=== PATIENT | male | born 1985 | race Caucasian/White ===

== ENCOUNTER 2020-12-19 16:39 | Emergency (ER) | payer OTHER, SELFPAY ==
--- NOTE | ~2020-12-19 | XR_ITS ---
XR ankle RT min 3V 12/19/2020 16:57 Indication: Inversion injury with right ankle pain Procedure: 4 views right ankle Comparison: No prior studies for comparison. Findings: There is a corticated ossific density inferior to the fibula, likely an accessory ossicle. There are corticated ossific densities inferior to the calcaneus anteriorly, also likely accessory os sicles. No acute fracture is identified. Ankle mortise intact. No significant soft tissue abnormality . No foreign bodies. Impression: 1: No acute fracture. Reviewed, dictated and finalized at location A. Impression: 1: No acute fracture.
[2020-12-19 16:45] VITALS: BP 179/117; PULSE 101; RESP 20; TEMP 36.6; O2SAT 98
--- NOTE | 2020-12-19 16:52 | ED.LOWEXIN ---
HPI - Extremity Injury (Lower) General Chief Complaint: Extremity Problem,Nontraumatic Stated Complaint: left ankle pain Time Seen by Provider: 12/19/20 16:52 Source: patient, family and RN notes reviewed Mode of arrival: ambulatory Limitations: no limitations History of Present Illness HPI Narrative: 35-year-old male presents to the [facility] with complaints of right ankle pain for the last 3 to 4 days. Patient states he does not want care when he stepped in hole and rolled his ankle. No bruising or swelling noted. Tenderness to lateral malleolus. Walks favoring the right leg. Slight limp noted Has a history of hypertension. Is supposed to be on losartan and amlodipine however has not taken in a few days. Related Data Home Medications Medication Instructions Recorded Confirmed clonazepam 0.5 mg PO DIRECTED 12/19/20 12/19/20 losartan 100 mg PO DAILY 12/19/20 12/19/20 testosterone cypionate 200 mg IM DIRECTED 12/19/20 12/19/20 Allergies Allergy/AdvReac Type Severity Reaction Status Date / Time No Known Allergies Allergy Unverified 02/27/19 12:45 Review of Systems Review of Systems: Narrative: CONSTITUTIONAL: Denies fever, chills, or sweats. CARDIOVASCULAR: Denies chest pain, palpitations, or edema. RESPIRATORY: Denies cough or dyspnea. SKIN: Denies rash or itching. MUSCULOSKELETAL: Denies back pain or myalgia. Reports right ankle pain for 4 days NEUROLOGIC: Denies headache, numbness, or weakness. PSYCHIATRIC: Denies anxiety or depression. All other systems reviewed are negative, except as documented in HPI. PMFSH Past Medical History Medical History (Updated 12/21/20 @ 11:46 by Ani Ruiz) Hypertension Low testosterone in male Family History Family History Father Hypertension Mother Hypertension Carcinoma of colon Social History Social History Smoking status: Smoker, status unknown Gender identity (if verbalized by the patient): Male Comments At the time of my signature, I reviewed and agree with the nursing past medical, surgical, social, and family history. There is no relevant family history pertinent to the patient complaint. Exam Narrative: Exam Narrative: GENERAL: This is a well-nourished, well-developed patient, in no apparent distress. Obese HEAD: normocephalic, atraumatic. EYES: PERRL. Sclera clear/white. Vision is grossly intact. EARS: External ears normal CARDIOVASCULAR: Regular rate and rhythm without murmurs, gallops, or rubs. RESPIRATORY: Clear to auscultation. Breath sounds equal bilaterally. No wheezes, rales, or rhonchi. SKIN: warm, Dry, intact with no suspicious lesions or rash, good texture and turgor. NEURO: awake, alert, and oriented to person, place and time. There were no obvious focal neurologic abnormalities. EXTREMITIES: Right ankle joint tenderness no effusion, bruising, swelling or edema noted. No calf tenderness. Negative Homans sign bilaterally. BACK: Nontender without deformity. Patient denies any headaches, blurry vision or change in vision. Denies any chest pain or shortness of breath. Extrem: Ankle/foot/toe images: 1. Course Vital Signs Vital signs: Vital Signs Temperature 98 F 12/19/20 16:45 Pulse Rate 101 H 12/19/20 16:45 Respiratory Rate 20 12/19/20 16:45 Blood Pressure 179/117 H 12/19/20 16:45 Pulse Oximetry 98 12/19/20 16:45 Temperature 98 F 12/19/20 16:45 Pulse Rate 101 H 12/19/20 16:45 Respiratory Rate 20 12/19/20 16:45 Blood Pressure 179/117 H 12/19/20 16:45 Pulse Oximetry 98 12/19/20 16:45 Reviewed. Discussed in great detail with patient the importance of blood pressure control. Patient reports having an appointment in early January with his primary care provider for evaluation. Patient also states he does not take his medications on a daily basis. Discussed the dangers of uncontrolled hype
--- NOTE | 2020-12-19 17:17 | PC.NURSE ---
PT DECLINED ICE FOR COMFORT AND WHEELCHAIR TO RADIOLOGY
== END 2020-12-19 17:19 | disposition home or self-care (01) ==
PROVIDERS: Emergency Provider Nurse Practitioner; PCP Family Medicine
DX: S93.401A Sprain of unspecified ligament of right ankle, initial encounter (principal); W17.2XXA Fall into hole, initial encounter; I10 Essential (primary) hypertension
CPT/HCPCS: 73610; 99213; G0463

== ENCOUNTER 2021-03-04 17:41 | Emergency (ER) | payer OTHER, SELFPAY ==
--- NOTE | ~2021-03-04 | XR_ITS ---
[XR ribs RT 2V ] INDICATION: Right rib pain for 2 months TECHNIQUE: Frontal projection of the upper right ribs, frontal projection of the lower right ribs, ob lique projection of all the right ribs, frontal inspiratory chest x-ray for interpretation. COMPARISON: 05/04/2019 and 05/10/2018 FINDINGS: There is a healed right seventh and eighth rib fractures with callus formation no acute dis placed rib fractures identified. No pleural effusion or pneumothorax. No acute osseous abnormality.. There are no soft tissue abnormality seen. The lungs are clear. IMPRESSION: 1:No acute displaced rib fractures. 2:Chronic healed right seventh and eighth rib fractures. Reviewed, dictated and finalized at location A.
[2021-03-04 17:46] VITALS: BP 158/91; PULSE 94; RESP 16; TEMP 36.4; O2SAT 96
--- NOTE | 2021-03-04 17:46 | ED.GENADULT ---
HPI - General Adult General Chief complaint: Back Pain/Injury Stated complaint: poss broken ribs Time Seen by Provider: 03/04/21 17:46 Source: patient and RN notes reviewed History of Present Illness HPI narrative: Patient is a 35-year-old male who presents the urgent care with complaints of right rib pain. Patient states he has had some rib pain for approximately 2 months but sneezed hard last night and believes he popped a rib or fractured a rib on the right side . Patient denies of any known trauma or injury. States that pain exacerbates with movement or lifting of the right arm. Denies of any recent falls. Patient denies of any use of [id number] medication for pain. No other acute complaints. No acute distress noted. Patient aware of the plan of care. Some parts of this dictation were generated by voice recognition software and may contain typographical and/or grammatical inaccuracies. Related Data Home Medications Medication Instructions Recorded Confirmed clonazepam 0.5 mg PO DIRECTED 12/19/20 12/19/20 losartan 100 mg PO DAILY 12/19/20 12/19/20 testosterone cypionate 200 mg IM DIRECTED 12/19/20 12/19/20 labetalol 200 mg PO DAILY 03/04/21 03/04/21 omeprazole 20 mg PO DAILY 03/04/21 03/04/21 Allergies Allergy/AdvReac Type Severity Reaction Status Date / Time No Known Allergies Allergy Verified 03/04/21 17:54 Review of Systems Review of Systems: Narrative: CONSTITUTIONAL: Denies fever, chills, or sweats. EYES: Denies visual changes, redness, or discharge. ENT: Denies rhinorrhea, congestion, sore throat, or otalgia. CARDIOVASCULAR: Denies chest pain, palpitations, or edema. RESPIRATORY: Denies cough or dyspnea. GASTROINTESTINAL: Denies abdominal pain, nausea, vomiting, or diarrhea. GENITOURINARY: Denies dysuria or hematuria. SKIN: Denies rash or itching. MUSCULOSKELETAL: Recent right posterior/right upper back pain NEUROLOGIC: Denies headache, numbness, or weakness. All other systems reviewed are negative, except as documented in HPI. [facility] Past Medical History Medical History (Updated 03/04/21 @ 18:24 by ANN Foster) Hypertension Low testosterone in male Family History Family History Father Hypertension Mother Hypertension Carcinoma of colon Social History Social History Smoking status: Smoker, status unknown Gender identity (if verbalized by the patient): Male Comments At the time of my signature, I reviewed and agree with the nursing past medical, surgical, social, and family history. There is no relevant family history pertinent to the patient complaint. Exam Narrative: Exam Narrative: GENERAL: This is a well-nourished, well-developed patient, in no apparent distress. HEAD: normocephalic, atraumatic. EYES: PERRL. Sclera clear/white. Vision is grossly intact. EARS: External ears normal NOSE: External nose normal with no obvious nasal discharge, nares without redness, no rhinorrhea. THROAT: Mucous membranes moist NECK: Neck supple CARDIOVASCULAR: Regular rate and rhythm without murmurs, gallops, or rubs. RESPIRATORY: Clear to auscultation. Breath sounds equal bilaterally. No wheezes, rales, or rhonchi. SKIN: warm, intact with no suspicious lesions or rash, good texture and turgor. NEURO: awake, alert, and oriented to person, place and time. There were no obvious focal neurologic abnormalities. EXTREMITIES: No clubbing, cyanosis, or edema. BACK: Mild to moderate lateral posterior right upper rib tenderness Course Vital Signs Vital signs: Vital Signs Temperature 97.5 F L 03/04/21 17:46 Pulse Rate 94 03/04/21 17:46 Respiratory Rate 16 03/04/21 17:46 Blood Pressure 158/91 H 03/04/21 17:46 Pulse Oximetry 96 03/04/21 17:46 Temperature 97.5 F L 03/04/21 17:57 Pulse Rate 94 03/04/21 17:57 Respiratory Rate 16 03/04/21 17:57 Blood Pressu
[2021-03-04 17:57] VITALS: BP 158/91; PULSE 94; RESP 16; TEMP 36.4; O2SAT 96
== END 2021-03-04 18:28 | disposition home or self-care (01) ==
PROVIDERS: Emergency Provider Nurse Practitioner Family; PCP Family Medicine
DX: R07.81 Pleurodynia (principal); I10 Essential (primary) hypertension
CPT/HCPCS: 71100; 99213; G0463

== ENCOUNTER 2021-05-18 16:50 | Emergency (ER) | payer OTHER, SELFPAY ==
[2021-05-18 16:55] VITALS: BP 152/93; PULSE 85; RESP 16; TEMP 36.7; O2SAT 95
[2021-05-18 17:06] VITALS: BP 152/93; PULSE 85; RESP 16; TEMP 36.7; O2SAT 95
--- NOTE | 2021-05-18 17:45 | ED.EYEPROB ---
HPI - Eye Problem General Chief complaint: Eye Problems Stated complaint: right eye Time Seen by Provider: 05/18/21 17:34 Source: patient and RN notes reviewed Mode of arrival: ambulatory Limitations: no limitations History of Present Illness HPI Narrative: Patient presents today complaining of swelling to the right external eye since 1030 today. Reports feels irritated , but denies pain. Denies vision changes, foreign body sensation, redness, drainage, watering. He has tried no [id number]-[id number] interventions prior to arrival. MD chief complaint: other (Eyelid swelling) Related Data Home Medications Medication Instructions Recorded Confirmed clonazepam 0.5 mg PO TID PRN 12/19/20 05/18/21 losartan 100 mg PO DAILY 12/19/20 05/18/21 testosterone cypionate 200 mg IM WEEKLY 12/19/20 05/18/21 labetalol 200 mg PO DAILY 03/04/21 05/18/21 atorvastatin 20 mg PO DAILY 05/18/21 05/18/21 Allergies Allergy/AdvReac Type Severity Reaction Status Date / Time No Known Allergies Allergy Verified 05/18/21 17:03 Review of Systems Review of Systems: CONSTITUTIONAL: Denies body aches, fever, chills, or sweats. EYES: Denies visual changes, redness, or discharge. + Right eyelid swelling ENT: Denies rhinorrhea, congestion, sore throat, or otalgia. CARDIOVASCULAR: Denies chest pain, palpitations, or edema. RESPIRATORY: Denies cough or dyspnea. GASTROINTESTINAL: Denies abdominal pain, nausea, vomiting, or diarrhea. GENITOURINARY: Denies dysuria or hematuria. SKIN: Denies rash, itching, or wounds. MUSCULOSKELETAL: Denies back pain, joint pain, or myalgia. NEUROLOGIC: Denies headache, numbness, tingling, or weakness. PSYCH: Denies depression or anxiety. [facility] Past Medical History Medical History Hypertension Low testosterone in male Family History Family History Father Hypertension Mother Hypertension Carcinoma of colon Social History Social History Smoking status: Smoker, status unknown Gender identity (if verbalized by the patient): Male Comments At time of signature, I have reviewed and agree with nursing past medical, surgical, social and family history unless otherwise noted. Please see nursing chart for further information. There is no relevant family history pertinent to the presenting complaint Exam Narrative: GENERAL: Well-appearing, well-nourished, and in no acute distress. HEAD: Normocephalic, atraumatic. EYES: EOMI. PERRL. No redness or drainage. Conjunctivae normal. Mild to moderate swelling of the right upper eyelid. Lashes normal. No stye noted internally or externally. Eyelids are nontender to palpation. No induration noted. No erythema noted. No drainage or watering noted. ENT: Mucous membranes pink and moist. NECK: Normal AROM. CHEST: No respiratory distress. EXTREMITIES: Normal range of motion. No edema. SKIN: Warm, dry, no rash. Capillary refill normal. Normal skin turgor. NEURO: No focal deficits. Alert and oriented x3. Gait steady. PSYCH: Normal affect. No signs of depression or anxiety. Course Course Emergency Course: will treat patient steroids like an allergic reaction/insect bite. He will take some Benadryl when he gets home. There is no evidence of bacterial infection or foreign body at this time. Patient has no pain or drainage. Anticipatory guidance given for follow-up. Vital Signs Vital signs: Vital Signs Temperature 98.0 F 05/18/21 16:55 Pulse Rate 85 05/18/21 16:55 Respiratory Rate 16 05/18/21 16:55 Blood Pressure 152/93 H 05/18/21 16:55 Pulse Oximetry 95 05/18/21 16:55 Temperature 98.0 F 05/18/21 17:06 Pulse Rate 85 05/18/21 17:06 Respiratory Rate 16 05/18/21 17:06 Blood Pressure 152/93 H 05/18/21 17:06 Pulse Oximetry 95 05/18/21 17:06 Reviewed.
[2021-05-18] MEDS: predniSONE 10 MG TABLET 50 MG PO (17:48)
== END 2021-05-18 17:57 | disposition home or self-care (01) ==
PROVIDERS: Emergency Provider Nurse Practitioner; PCP Family Medicine
DX: R22.0 Localized swelling, mass and lump, head (principal); I10 Essential (primary) hypertension
CPT/HCPCS: 99213; G0463; J7512

== ENCOUNTER 2021-07-04 16:28 | Emergency (ER) | payer OTHER, SELFPAY ==
--- NOTE | ~2021-07-04 | XR_ITS ---
XR ankle LT min 3V DATE: 07/04/2021 16:50 INDICATION: Inversion injury. Lateral pain and swelling. TECHNIQUE: 4 views COMPARISON: None FINDINGS: There is prominent lateral soft tissue swelling. No fracture or dislocation of the ankle or disruption of the ankle mortise is detected. No periosteal reaction or bone destruction. IMPRESSION: Prominent lateral soft tissue swelling; no fracture or dislocation Reviewed, dictated and finalized at location A.
[2021-07-04 16:45] VITALS: BP 149/93; PULSE 96; RESP 16; TEMP 36.6; O2SAT 98
--- NOTE | 2021-07-04 17:18 | ED.LOWEXIN ---
HPI - Extremity Injury (Lower) General Chief Complaint: Extremity Injury, Lower Stated Complaint: Left Ankle Injury Time Seen by Provider: 07/04/21 17:18 Source: patient Mode of arrival: ambulatory History of Present Illness HPI Narrative: patient presents with pain and swelling to the lateral side of the ankle. patient states he rolled his ankle yesterday and it immediately became swollen no deformity no bruising noted. MD complaint: ankle injury Related Data Home Medications Medication Instructions Recorded Confirmed clonazepam 0.5 mg PO TID PRN 12/19/20 07/04/21 losartan 100 mg PO DAILY 12/19/20 07/04/21 labetalol 200 mg PO DAILY 03/04/21 07/04/21 atorvastatin 20 mg PO DAILY 05/18/21 07/04/21 Allergies Allergy/AdvReac Type Severity Reaction Status Date / Time No Known Allergies Allergy Verified 07/04/21 17:06 Review of Systems Review of Systems: CONSTITUTIONAL: Denies fever, chills, or sweats. EYES: Denies visual changes, redness, or discharge. ENT: Denies rhinorrhea, congestion, sore throat, or otalgia. CARDIOVASCULAR: Denies chest pain, palpitations, or edema. RESPIRATORY: Denies cough or dyspnea. GASTROINTESTINAL: Denies abdominal pain, nausea, vomiting, or diarrhea. GENITOURINARY: Denies dysuria or hematuria. SKIN: Denies rash or itching. MUSCULOSKELETAL: Denies back pain, joint pain, or myalgia. NEUROLOGIC: Denies headache, numbness, or weakness. PSYCHIATRIC: Denies anxiety or depression. PMFSH Past Medical History Medical History Hypertension Low testosterone in male Family History Family History Father Hypertension Mother Hypertension Carcinoma of colon Social History Social History Smoking status: Smoker, status unknown Gender identity (if verbalized by the patient): Male Comments At time of signature, agree with nursing past medical, surgical, social and family history. There is no relevant family history pertinent to the presenting complaint Exam Narrative: GENERAL: Well-appearing, well-nourished, and in no acute distress. HEAD: Normocephalic, atraumatic. EYES: PERRLA and EOMI. ENT: Nares clear, no rhinorrhea or epistaxis. Mucous membranes moist. NECK: Supple. CHEST: Clear to auscultation. No respiratory distress. HEART: Regular rate and rhythm. No murmur heard. Normal peripheral pulses. ABDOMEN: Soft, nontender, nondistended, normal active bowel sounds. EXTREMITIES: Normal range of motion. No edema. ANKLE EXAM SKIN INTACT. NORMAL DP PULSE, NORMAL CAP REFILL. NORMAL SENSATION. SKIN: Warm, dry, no rash. NEURO: No focal deficits. Alert and oriented x3. [place] Coma Scale Eye Opening: Spontaneous 4 Stephanie Coma Scale Motor: Obeys Commands 6 [place] Coma Scale Verbal: Oriented 5 [place] Coma Scale Total 15 Course Vital Signs Vital signs: Vital Signs Temperature 36.6 C 07/04/21 16:45 Pulse Rate 96 07/04/21 16:45 Respiratory Rate 16 07/04/21 16:45 Blood Pressure 149/93 H 07/04/21 16:45 Pulse Oximetry 98 07/04/21 16:45 Temperature 36.6 C 07/04/21 16:45 Pulse Rate 96 07/04/21 16:45 Respiratory Rate 16 07/04/21 16:45 Blood Pressure 149/93 H 07/04/21 16:45 Pulse Oximetry 98 07/04/21 16:45 Addressed elevated BP today. Today's blood pressure higher than recommended range. Discussed importance of follow -up with PCP and possible chcf effects/cardiovascular events related to HTN. Currently patient denies headache, dizziness, vision changes, CP or shortness of breath. DISCUSSED WITH PATIENT, X-RAY FINDINGS AND THAT X-RAYS WERE NEGATIVE FOR FRACTURE OR DISLOCATIONS. X-RAYS CANNOT RULE OUT TENDON, LIGAMENT, OR SOFT TISSUE STRUCTURE INJURIES AND IF SYMPTOMS PERSIST OR WORSEN, FURTHER EVALUATION MAY BE WARRANTED FOR POTENTIAL IMAGING. ADVISED REST, ICE, COMPRESSION
== END 2021-07-04 17:30 | disposition home or self-care (01) ==
PROVIDERS: Emergency Provider Nurse Practitioner Family; PCP Family Medicine
DX: S93.402A Sprain of unspecified ligament of left ankle, initial encounter (principal); S96.912A Strain of unspecified muscle and tendon at ankle and foot level, left foot, initial encounter; X50.9XXA Other and unspecified overexertion or strenuous movements or postures, initial encounter; I10 Essential (primary) hypertension
CPT/HCPCS: 73610; 99213; G0463

== ENCOUNTER 2022-10-26 09:19 | Emergency (ER) | payer OTHER, SELFPAY ==
[2022-10-26 09:23] VITALS: BP 180/113; PULSE 110; RESP 16; TEMP 36.6; O2SAT 95
--- NOTE | 2022-10-26 09:54 | ED.DENTAL ---
HPI - Dental/Oral General Chief complaint: Dental/Oral Stated complaint: Toothache Source: patient and RN notes reviewed History of Present Illness HPI Narrative: 37-year-old male presents to urgent care with complaints of left upper dental pain and swelling. Patient states he has always had pain there but the last couple days it has gotten worse. Patient presents intoxicated and states he has been doing his pain with liquor. Patient did state he got a ride with his stepdad was out in the waiting room. Patient denies any vomiting difficulty swallowing, shortness of breath, or chest pain. Patient denies taking any ibuprofen or Tylenol. Some parts of this dictation were generated by voice recognition software and may contain typographical and/or grammatical inaccuracies. Related Data Home Medications Medication Instructions Recorded Confirmed clonazepam 0.5 mg tablet 0.5 mg PO TID PRN Anxiety 12/19/20 07/04/21 losartan 100 mg tablet 100 mg PO DAILY 12/19/20 07/04/21 labetalol 200 mg tablet 200 mg PO DAILY 03/04/21 07/04/21 atorvastatin 20 mg tablet 20 mg PO DAILY 05/18/21 07/04/21 Allergies Allergy/AdvReac Type Severity Reaction Status Date / Time No Known Allergies Allergy Verified 07/04/21 17:06 Review of Systems Review of Systems: CONSTITUTIONAL: Denies fever, chills, or sweats. EYES: Denies visual changes, redness, or discharge. ENT: Left upper dental pain and swelling CARDIOVASCULAR: Denies chest pain, palpitations, or edema. RESPIRATORY: Denies cough or dyspnea. GASTROINTESTINAL: Denies abdominal pain, nausea, vomiting, or diarrhea. GENITOURINARY: Denies dysuria or hematuria. SKIN: Denies rash or itching. MUSCULOSKELETAL: Denies back pain, joint pain, or myalgia. NEUROLOGIC: Denies headache, numbness, or weakness. [facility] Past Medical History Medical History Hypertension Low testosterone in male Family History Family History Father Hypertension Mother Hypertension Carcinoma of colon Social History Social History Smoking status: Smoker, status unknown Gender identity (if verbalized by the patient): Male Comments At the time of my signature, I reviewed and agree with the nursing past medical, surgical, social, and family history. There is no relevant family history pertinent to the patient complaint. Exam Narrative: GENERAL: This is a well-nourished, well-developed patient, in no apparent distress. HEAD: normocephalic, atraumatic. EYES: PERRL. Sclera clear/white. Vision is grossly intact. MOUTH: Left upper gum swelling with tooth decay noted. No exudate noted. NOSE: External nose normal with no obvious nasal discharge, nares without redness, no rhinorrhea. THROAT: Mucous membranes moist, posterior pharynx clear. NECK: Neck supple, non-tender without lymphadenopathy, masses or thyromegaly. CARDIOVASCULAR: Regular rate and rhythm without murmurs, gallops, or rubs. RESPIRATORY: Clear to auscultation. Breath sounds equal bilaterally. No wheezes, rales, or rhonchi. GASTROINTESTINAL: Abdomen soft, non-tender, nondistended. Bowel sounds are active. No hepato-splenomegaly, or palpable masses. No guarding. SKIN: warm, intact with no suspicious lesions or rash, good texture and turgor. NEURO: awake, alert, and oriented to person, place and time. There were no obvious focal neurologic abnormalities. Course Course Level of Care: Express Care Visit Vital Signs Vital signs: Vital Signs Temperature 97.8 F 10/26/22 09:23 Pulse Rate 110 H 10/26/22 09:23 Respiratory Rate 16 10/26/22 09:23 Blood Pressure 180/113 H 10/26/22 09:23 Pulse Oximetry 95 10/26/22 09:23 Oxygen Delivery Room Air 10/26/22 09:23 Temperature 97.8 F 10/26/22 09:23 Pulse Rate 110 H 10/26/22 09:23 Respiratory Rate 16 10/26/22 0
== END 2022-10-26 10:10 | disposition home or self-care (01) ==
PROVIDERS: Emergency Provider Nurse Practitioner Family; PCP Family Medicine
DX: K04.7 Periapical abscess without sinus (principal); I10 Essential (primary) hypertension
CPT/HCPCS: 99213; G0463

== ENCOUNTER 2024-02-09 15:54 | Emergency (ER) | payer OTHER, SELFPAY ==
[2024-02-09 16:07] VITALS: BP 152/95; PULSE 91; RESP 16; TEMP 36.4; O2SAT 98
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
== END 2024-02-09 17:31 | disposition home or self-care (01) ==
PROVIDERS: Emergency Provider Registered Nurse; PCP Family Medicine
DX: H00.012 Hordeolum externum right lower eyelid (principal); E78.00 Pure hypercholesterolemia, unspecified; K21.9 Gastro-esophageal reflux disease without esophagitis; I10 Essential (primary) hypertension; G47.30 Sleep apnea, unspecified
CPT/HCPCS: 99213; G0463

== ENCOUNTER 2024-05-20 13:47 | Emergency (ER) | payer OTHER, SELFPAY ==
[2024-05-20 13:54] VITALS: BP 153/102; PULSE 93; RESP 20; TEMP 36.8; O2SAT 95
[2024-05-20 14:02] VITALS: BP 153/102; PULSE 93; RESP 20; TEMP 36.8; O2SAT 95
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
[2024-05-20 14:10] VITALS: BP 150/96
== END 2024-05-20 14:10 | disposition home or self-care (01) ==
PROVIDERS: Emergency Provider Nurse Practitioner Family; PCP Family Medicine
DX: H00.015 Hordeolum externum left lower eyelid (principal); E78.00 Pure hypercholesterolemia, unspecified; K21.9 Gastro-esophageal reflux disease without esophagitis; I10 Essential (primary) hypertension; G47.30 Sleep apnea, unspecified; Z87.891 Personal history of nicotine dependence
CPT/HCPCS: 99213; G0463

== ENCOUNTER 2024-09-12 10:18 | Emergency (ER) | payer OTHER, SELFPAY ==
[2024-09-12 10:24] VITALS: BP 181/120; PULSE 104; RESP 18; TEMP 36.3; O2SAT 97
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
[2024-09-12 10:52] VITALS: BP 120/108
== END 2024-09-12 10:55 | disposition home or self-care (01) ==
PROVIDERS: Emergency Provider Nurse Practitioner Family; PCP Family Medicine
DX: H66.92 Otitis media, unspecified, left ear (principal); J06.9 Acute upper respiratory infection, unspecified; R05.9 Cough, unspecified; Z87.891 Personal history of nicotine dependence; I10 Essential (primary) hypertension; K21.9 Gastro-esophageal reflux disease without esophagitis; E78.00 Pure hypercholesterolemia, unspecified; G47.30 Sleep apnea, unspecified
CPT/HCPCS: 99213; G0463

== ENCOUNTER 2025-03-20 17:39 | Emergency (ER) | payer OTHER, SELFPAY ==
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
--- NOTE | 2025-03-20 17:42 | ECG_ITS ---
Test Date: 2025-03-20 17:45:33 Measurements Intervals [place] Rate: 116 P: 35 VT: 146 QRS: 43 QRSD: 96 T: 41 QT: 328 QTc: 456 Interpretive Statements SINUS TACHYCARDIA MODERATE ST DEPRESSION [0.05+ mV ST DEPRESSION] No previous ECG available for comparison Electronically Signed On 03-22-2025 15:34:23 CDT by Richard Villarreal M.D.
--- OUTSIDE RECORDS SUMMARY | 2025-03-20 17:42 | XMS_ITS | Clinical Summary ---
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 Name Role Phone Unavailable Primary Care Provider Unavailabl e Social History Tobacco Use Types Packs/Day Years Used Date Smoking Tobacco: Never Assessed Sex and Gender Information Value Date Recorded Sex Assigned at Not on file Legal Sex Male 8:06 PM CDT Gender Identity Not on file Sexual Orientation Not on file Plan of Treatment Health Maintenance Due Date Last Done Comments Annual Physical 1986 Hepatitis C 2001 DTaP, Tdap and Td Vaccines ( 1 - Tdap) 2002 Hepatitis B Vaccines (1 of 3 - 19+ 3-dose series) 2002 HPV Vaccines (1 - 3-dose SCD M series) 2010 COVID-19 Vaccine (2023-2 5 season) 2024 Meningococcal B Vaccine Aged Out No l onger eligible based on patient's age to complete this topic Meningococcal Vaccine Aged Out No jacqueline jessica eligible based on patient's age to complete this topic Pneumococcal Vaccine: Pediat rics (0 to 5 Years) and At-Risk Patients (6 to 49 Years) Aged Out No longer eligible b ased on patient's age to complete this topic RSV Immunizations Under 20 Months Aged Out No longer eligible based on patient's age to complete this topic
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
--- OUTSIDE RECORDS SUMMARY | 2025-03-20 17:42 | XMS_ITS | Data Portability ---
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 Plan of Treatment Reminders Order Date Submit Date Provider Last Modified By Organization Details Last Modified Time Details Appointments None recorded. Lab CMP, serum or plasma 2018 019 [facility], [address], [address], [place], [address], 9 17:34:43 testostero ne, free + total, serum 2018 019 [facility], [address], [place], [address], 9 17:34:43 CBC w/ auto diff 2018 019 [facility], [address], [address], [place], [address], 9 09:10:11 TSH + free T4, serum 2018 019 [facility], [address], [address], [place], [address], 9 09:10:11 Referral None recorded. Procedures None recorded. Surgeries None recorded. Imaging US, duplex, renal artery 2017 [facility] [address] [place], [address], 8 12:17:13 Medication Orders ranitidine 300 mg tablet 2018 019 [facility]30000, [address], [place], [place], [id number], 9 13:21:08 Chantix Starting Month Box 0.5 mg (11)-1 mg (42) tablets in dose pack 2018 019 [facility], [address] , [place], [place], [id number], 9 12:27:41 cyclobenza isma 10 mg tablet 2018 019 [facility] #61679, [address] [place], [place], [id number], 9 10:11:38 meloxicam 15 mg tablet 2018 019 [facility] #73812, [address] [place], [place], [id number], 9 10:11:37 losartan 100 mg tablet 2018 019 [facility] #86302, [address] [place], [place], [id number], 9 10:11:39 amlodipine 10 mg tablet 2018 019 [facility] #81008, [address] [place], [place], [id number], 9 10:11:40 hydrochlor othiazide 12.5 mg capsule 2018 019 [facility] #37112, [address], [place], [place], [id number], 9 12:27:08 clonazepam 1 mg tablet 2018 019 [facility]69073, [address] [place], [id number], 9 10:11:39 losartan 100 mg tablet 2017 018 [facility] #27214, [address], [id number], 8 16:21:16 clonazepam 0.5 mg tablet [email or web address] [facility]15883, [address], [id number], 9 14:45:21 venlafaxin e ER 37.5 mg capsule,ex tended release 24 hr 2017 018 [email or web address] #11368, [address], [place], [id number], 8 16:10:34 zolpidem 5 mg tablet 2017 018 [facility] #60715, [address], [id number], 9 09:35:25 omeprazole 20 mg capsule,de layed release 2017 018 [facility] #35260, [address], [id number], 8 15:21:33 losartan 50 mg tablet 2017 018 [facility] #60892, [address], [id number], 9 09:33:45 amlodipine 10 mg tablet 2017 018 [facility] #70173, [address], [place], [place], [id number], 8 15:21:30 Patient TargetsNo targets recorded. Patient Instructions Encounter Date Encounter Id Patient Instructions Last Modified By Organization Details Last Modified Time 09/06/2018 [id number] tobacco cessation jdeyto Not availab le 09/06/2018 11:27:01 12/11/2018 [id number] tobacco cessation jdeyto Not availab le 12/11/2018 16:40:09 02/21/2019 [id number] tobacco cessation jdeyto Not availab le 02/21/2019 12:56:13 Reason for Referral None Reported. Results Created Date Observation Date Name Description Value Unit Range Abnormal Flag Note LastModifiedBy Organization Detail LastModifiedTime 09/26/1909/26/2018 CMP, serum or plasm a LDL 124 Not Available Not Availa ble 09/26/2018 14:44:18 09/26/1909/26/2018 CMP, serum or plasm a total chol 221 Not Available Not Dilcia ilable 09/26/2018 14:44:18 09/26/1909/26/2018 CMP, serum or plasm a HDL 58 Not Available Not Availa ble 09/26/2018 14:44:18 09/26/1909/26/2018 CMP, serum or plasm a trig 124 Not Available Not Availa ble 09/26/2018 14:44:18 09/26/19 19 09/26/2018 lipid panel , serum LDL 124 Not Available Not Availa ble 09/26/2018 14:43:48 09/26/1909/26/2018 lipid panel , serum total chol 221 Not Available Not Dilcia ilable 09/26/2018 14:43:48 09/26/1909/26/2018 lipid panel , serum HDL 58 Not Available Not Availa ble 09/26/2018 14:43:48 09/26/19 19 09/26/2018 lipid panel , serum trig 124 Not Available Not Availa ble 09/26/2018 14:43:48 05/30/20 18 05/10/2018 XR, chest , 2 view No observ ation record ed. [facility] [address], [place], [address], 05/30/2018 09:56:17 06/28/20 18 06/23/2018 XR, chest , 2 view No observ ation record ed. [facility] ([facility]) Scheduling [address] [place], [address], 07/11/2018 14:15:41 06/28/20 18 06/22/2018 US, duple x, renal arter y No observ ation record ed. [facility] ([facility]) Scheduling [address] [place], [address], 07/11/2018 09:27:32 07/10/20 18 XR, chest , 2 view No observ ation record ed. [facility] [address], [place], [address], 07/13/2018 21:54:47 09/26/19 19 08/15/2018 exerc isyara garay s test No observ ation record ed. JOANNE [facility] ([facility]) Scheduling [address] [place], [address], 09/27/2018 12:28:10 05/09/20 19 05/04/2019 XR, chest , 2 view No observ ation record ed. [email or web address] Not Available 2018 15:02:17 Result Notes None recorded. Problems Name Problem SNOMED Code Status Onset Date Resolution Date Notes Provider Name and Address Organization Details Recorded Time Benign hypertens ion 54836665 Active 2016 Remedios Storm MD Attn: Ernestine munoz,[address], [place], [address], [facility] 7 14:48:28 Mixed anxiety and depressiv e disorder 132182843 Active 2016 Remedios Storm MD Attn: Ernestine munoz,[address], [place], [address], [place] - [facility] 7 14:48:55 Smoker 49551673 Completed 201609/06/2018 Deloris Sheppard PA-C Attn: Ernestine munoz,[address], [place], [address], [place] - [facility] 9 10:08:14 Family history of cancer of colon 391193761 Active 2016 Remedios Storm MD Attn: Ernestine munoz,[address], [place], [address], [place] - [facility] 7 14:55:18 Polyp of colon 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 Active 2016 tubular adenoma, repeat scope in 3yrs Deloris Sheppard PA-C Attn: Ernestine munoz,[address], [place], [address], [place] - [facility] 8 15:42:58 Gastroeso phageal reflux disease without esophagit is 791864846 Active 2017 Deloris Sheppard PA-C Attn: Ernestine munoz,[address], [place], [address], [place] - [facility] 8 15:56:14 Community acquired pneumonia 722785529 Completed 201707/10/2018 Deloris Sheppard PA-C Attn: Ernestine munoz,[address], [place], [address], [place] - [facility] 8 16:12:20 Hyperlipi demia 21145208 Active 2017 Deloris Sheppard PA-C Attn: Ernestine munoz,[address] [place], [address], [place] - [facility] 8 15:56:22 Tobacco user 483175195 Active 2017 Deloris Sheppard PA-C Attn: Ernestine munoz,[address], [place], [address], [facility] 8 15:56:23 Problem Notes None recorded. Procedures Surgical History Date Name Laterality Status Provider Name and Address Organization Details Recorded Time 7 Colonoscopy completed Deloris Sheppard PA-C Attn: Accounting,[address], [place], [address], [facility] 04/24/2018 15:41:56 2 Other completed Delia Dyer [facility] 02/28/2017 14:30:44 Imaging Results None recorded. Procedure Notes None recorded. Medical Equipment None Reported. Allergies No known drug allergies Medications Name Sig Start Date Stop Date Status Note LastModified by Organization Details LastModified Time losartan 50 mg tablet Take 1 tablet every day by oral route. 09/06 completed Not Available Not Available Not Available cyclobenz aprine 10 mg tablet Take 1 tablet 3 times a day by oral route as needed. active Not Available Not Available No t Available venlafaxi ne ER 37.5 mg capsule,e xtended release 24 hr TAKE 1 CAPSULE BY MOUTH EVERY DAY IN THE MORNING active Not Available Not Available No t Available clonidine HCl 0.1 mg tablet Take 1 tablet every day by oral route. 04/24 completed Not Available Not Available Not Available prednison e 10 mg tablet 07/10 completed Not Available Not Available Not Available venlafaxi ne ER 75 mg capsule,e xtended release 24 hr TAKE 1 CAPSULE BY MOUTH EVERY DAY active Not Available Not Available No t Available cetirizin e 10 mg tablet active Not Available Not Available Not Available azithromy eduardo 250 mg tablet 04/24 completed Not Available Not Available Not Available ibuprofen 800 mg tablet 04/24 completed Not Available Not Available Not Available ranitidin e 300 mg tablet Take 1 tablet every day by oral route. active Not Available Not Available No t Available hydrocodo ne 5 mg-acetam inophen 325 mg tablet 04/24 completed Not Available Not Available Not Available meloxicam 15 mg tablet TAKE 1 TABLET BY MOUTH EVERY DAY NEEDED active Not Available Not Available No t Available prednison e 20 mg tablet active Not Available Not Available Not Available clonazepa m 0.5 mg tablet TAKE 1 TABLET BY MOUTH TWICE DAILY NEEDED 11/06 completed Not Available Not Available Not Available gabapenti n 400 mg capsule 04/24 completed Not Available Not Available Not Available clonazepa m 1 mg tablet TAKE 1 TABLET BY MOUTH EVERY DAY NEEDED 2018 active Not Available Not Available Not Avai lable amlodipin e 5 mg tablet TAKE 1 TABLET BY MOUTH EVERY DAY 07/10 completed Not Available Not Available Not Available triamtere ne 37.5 mg-hydroc hlorothia zide 25 mg capsule 04/24 completed Not Available Not Available Not Available simvastat in 40 mg tablet Take 1 tablet every day by oral route for 30 days. 12/11 completed Not Available Not Available Not Available carvedilo l 3.125 mg tablet Take 1 tablet every day by oral route for 30 days. 04/24 completed Not Available Not Available Not Available amoxicill in 875 mg tablet 06/02 completed Not Available Not Available Not Available pravastat in 10 mg tablet 12/11 completed Not Available Not Available Not Available amlodipin e 10 mg tablet TAKE 1 TABLET BY MOUTH EVERY DAY 2018 active Not Available Not Available Not Avai lable cephalexi n 500 mg capsule 12/11 completed Not Available Not Available Not Available ranitidin e 150 mg tablet Take 1 tablet twice a day by oral route. 05/29 completed Not Available Not Available Not Available ranitidin e 300 mg capsule Take 1 capsule by mouth daily 03/06 completed duplicat e Not Available Not Available Not Available hydrochlo rothiazid e 12.5 mg capsule Take 1 capsule every day by oral route. active prn Not Available Not Available No t Available omeprazol e 20 mg capsule,d elayed release 2018 active Not Available Not Available Not Avai lable hydroxyzi ne HCl 25 mg tablet Take 1 tablet every day by oral route for 30 days. 05/29 completed Not Available Not Available Not Available zolpidem 5 mg tablet Take 1 tablet as needed by oral route at bedtime. 09/06 completed Not Available Not Available Not Available lisinopri l 10 mg-hydroc hlorothia zide 12.5 mg tablet 04/24 completed Not Available Not Available Not Available ibuprofen 600 mg tablet 06/02 completed Not Available Not Available Not Available cefuroxim e axetil 500 mg tablet 04/24 completed Not Available Not Available Not Available polyethyl shweta glycol 3350 17 gram/dose oral powder 06/02 completed Not Available Not Available Not Available methylpre dnisolone 4 mg tablets in a dose pack 05/29 completed Not Available Not Available Not Available albuterol sulfate HFA 90 mcg/actua tion aerosol inhaler active Not Available Not Available Not Available losartan 50 mg-hydroc hlorothia zide 12.5 mg tablet Take 1 tablet every day by oral route. 04/24 completed Not Available Not Available Not Available losartan 100 mg tablet Take 1 tablet every day by oral route. active Not Available Not Available No t Available fluoxetin e 20 mg capsule 06/02 completed Not Available Not Available Not Available fluticaso ne propionat e 50 mcg/actua tion nasal spray,juana pension active Not Available Not Available Not Available duloxetin e 20 mg capsule,d elayed release Take 1 capsule twice a day by oral route for 30 days. 05/29 completed Not Available Not Available Not Available losartan 100 mg-hydroc hlorothia zide 12.5 mg tablet Take 1 tablet every day by oral route. 05/29 completed Not Available Not Available Not Available venlafaxi ne ER 75 mg tablet,ex tended release 24 hr Take 1 tablet every day by oral route. 2016 active Not Available Not Available Not Avai lable Chantix Starting Month Box 0.5 mg (11)-1 mg (42) tablets in dose pack use as directed 02/21 completed Not Available Not Available Not Available Vitals Date Recorded Systolic And Diastolic Provider Name and Address Organization Details Last Updated DateTime 09/06/2018 130/90 mm[Hg] ZAHRAA Ontiveros Attn: Accounting,[address] [place], [address], [place] - [facility] 09/06/2018 09:49:48 Date Recorded Body height Body mass index (BMI) Body weight Heart rate Respiratory rate Body temperature Oxygen saturation Oxygen saturation in Arterial blood by Pulse oximetry Systolic And Diastolic Provider Name and Address Organization Details Last Updated DateTime 9 182.25 cm 35.3 kg/m2 230670. 71 g 94 /min 18 /min 97.1 [degF] 99 % 99 % 136/94 mm[Hg] ClareHARDIK CelayaLavelle [place] - [facility] 9 09:37:41 Date Recorded Body height Body mass index (BMI) Body weight Heart rate Body temperature Oxygen saturation Oxygen saturation in Arterial blood by Pulse oximetry Respiratory rate Systolic And Diastolic Provider Name and Address Organization Details Last Updated DateTime 9 182.25 cm 36.2 kg/m2 092484. 06 g 108 /min 98.5 [degF] 95 % 95 % 20 /min 128/98 mm[Hg] Lory Manisha [facility] 9 16:13:26 Date Recorded Body height Heart rate Body mass index (BMI) Body weight Respiratory rate Body temperature Oxygen saturation Oxygen saturation in Arterial blood by Pulse oximetry Systolic And Diastolic Provider Name and Address Organization Details Last Updated DateTime 9 182.25 cm 84 /min 35.2 kg/m2 734601. 04 g 16 /min 97.9 [degF] 98 % 98 % 126/88 mm[Hg] Clarera WebberVICKY [facility] 9 12:30:05 Date Recorded Body height Body mass index (BMI) Body weight Heart rate Respiratory rate Body temperature Oxygen saturation Oxygen saturation in Arterial blood by Pulse oximetry Systolic And Diastolic Provider Name and Address Organization Details Last Updated DateTime 8 182.25 cm 35.6 kg/m2 498111. 61 g 108 /min 16 /min 98.3 [degF] 99 % 99 % 160/100 mm[Hg] VICKY Bermudez [facility] 8 14:39:41 Date Recorded Body height Oxygen saturation Oxygen saturation in Arterial blood by Pulse oximetry Body temperature Body mass index (BMI) Body weight Heart rate Respiratory rate Systolic And Diastolic Provider Name and Address Organization Details Last Updated DateTime 8 182.25 cm 100 % 100 % 98.9 [degF] 34.3 kg/m2 178855. 04 g 104 /min 18 /min 152/108 mm[Hg] Lory Dyer [facility] 8 15:52:02 Social History Question Answer Notes LastModified by Organizat ion Details LastModified Time Tobacco Smoking Status Current Every Day Smoker Delia prabhakar [place] - [facility] 02/28/2017 14:26:37 What Is Your Level Of Caffeine Consumption? Heavy 60oz Soda Per Day [email or web address] Information not available 12/11/2018 How Much Tobacco Do You Chew? None Information not available 02/28/2017 What Type Of Diet Are You Following? REGULAR Information not available 02/28/2017 Which Illicit Or Recreational Drugs Have You Used? Denies Information not available 02/28/2017 Education [employer] Information not available 02/28/2017 Hard Of Hearing Or Deaf In One Or Both Ears? No Information not available 02/21/2019 Legally Blind In One Or Both Eyes? No Information not available 02/21/2019 Marital Status Single Informatio n not available 02/28/2017 What Was The Date Of Your Most Recent Tobacco Screening? 02/21/2019 Information not available 03/22/2019 At What Age Did You Start Smoking Tobacco? 13 Information not available 02/28/2017 How Much Tobacco Do You Smoke? 1 PPD Information not available 02/28/2017 General Stress Level Medium Information not available 02/21/2019 Has Tobacco Cessation Counseling Been Provided? Yes [email or web address] Information not available 12/11/2018 On What Date Was Tobacco Cessation Counseling Provided? 02/21/2019 Information not available 02/21/2019 Sex: Unknown Functional Status Question Answer Note LastModified by Organizat ion Details LastModified Time What is your level of alcohol consumption? Moderate 1-2 times per wk [email or web address] Information not available 12/11/2018 What is your occupation? [employer] [employer] travels a lot months at a time Information not available 02/21/2019 What is your exercise level? Occasional Information not available 02/28/2017 Mental Status None recorded. Family History Relationship Description Onset Age of this Age Resolved Age Notes LastModified by Organization Details LastModified Time Mother Hypertensive disorder Not available 2016 14:26:15 Mother Malignant tumor of colon Not available 2016 14:26:26 Paternal Grandfather Coronary arterioscler osis 50 60 CABG [email or web address] Not available 2017 14:34:56 Medical History Condition Response Anxiety Disorder Y High Blood Pressure Y Depression Y Immunizations Vaccine Type Date Status Note Provider Nam e and Address Organization Details Recorded Time Tdap 03/31/2017 completed Not Available [facility] 09/15/2019 02:33:56 Past Encounters Encounter ID Performer Location Encounter Start Date Encounter Closed Date Diagnosis/Indication Diagnosis SNOMED-CT Code Diagnosis ICD10 Code Diagnosis Note [id number] MD Ivana Lewishalto (Adult Med) [address] [place] [address] 02/28/2017 14:05:58 03/03/2017 15:39:00 Benign hypertension 03492870 I10 start pt on [place] Mixed anxi ety and depressive disorder 746793945 F41.8 pt declined meds , doing fine without meds for now Family his tory of cancer of colon 452877100 Z80.0 mom diagnosed with colon ca at her 40 's [id number] [facility] [address] [place] [address] 03/31/2017 08:32:02 04/01/2017 14:01:04 Benign hypertension 03673607 I10 Change [place] to [place] t Active or passive immunization 979109031 Z23 Mixed anxi ety and depressive disorder 661258090 F41.8 pt agreed to try med - failed on prozac/zol oft/ trazodone in the pastPaxil helped some per pt -wants to try different medDecline d counsellin gRefer to psychiatri st as well due to multiple med failure [id number] MD Rodrigo Lewis (Adult Med) [address] [place] [address] 06/02/2017 09:36:30 06/02/2017 17:53:45 Benign hypertension 71998568 I10 Increase [place]hc t 100/12.5 dailypt to f/u with new pcp-pt agreed to find new one Mixed anxi ety and depressive disorder 756623218 F41.8 pt agreed to try med - failed on prozac/zol oft/ trazodone in the pastPaxil helped some per pt, but does not want to take it -declined counsellin gRefered to psychiatri st as well due to multiple med failure-pt made apt for 05/31 , did not go for the apt - pt said that he is not satisfied with [facility] , has been trying for yearsAdvis ed pt to find any other provider if he is not satisfied with [facility]. [id number] MD Rodrigo Bautista (Adult Med) [address] [place] [address] 04/24/2018 13:52:37 04/24/2018 17:27:59 Community acquired pneumonia 558462961 J18.9 reviewed ER report, CXR. Recommend repeat CXR for resolution 4-6 weeks after ER visit. Advised him to quit smoking Essential hypertension 82795513 I10 Has not been well controlled . Medication s from most recent PCP not maximized and pt did not like taking 3 meds. Didn't like maxzide - sweats. Also was taking low dose clonidine just once a day and low dose carvedilol once a day. Didn't feel he had good control on losartan-h ctz either. REcommend getting stress test and renal ultrasound to rule out stenosis as possible cause to HTN difficult to control on multiple agens. Also agree with starting norvasc (amlodipin e), low dose 5mg for now and re-evaluat e in 4-6 weeks to see if dose needs to be increased. Cont to monitor BP at e. Gastroesop hageal reflux disease without esophagitis 268637281 K21.9 discussed importance of controllin g GERD especially w/ his smoking hx he is higher risk for cancer Tobacco user 617520442 Z 72.0 patient not interested in quitting at this time, he is not interested in starting medication s to help reduce amount he smokes. Hyperlipidemia 63701481 E78.01 we will get labs from prior PCP. Prickly heat 40762396 L7 4.0 cont to use steroid cream for itching should resolve on own Body mass index 30+ - obesity 646773045 Z68.33 discussed heart healthy diet, also recommend low acid diet. [id number] MD Rodrigo Bautista (Adult Med) [address] [place] [address] 05/29/2018 14:28:07 05/31/2018 10:55:09 Essential hypertension 17874061 I10 Has not been well controlled , taking amlodipine w/o any side effects. REfused diuretics due to risk of dehydratio n w/ his work environmen t. Discussed need to r/o KG due to uncontroll ed BP on 4 agents in past. He is agreeable to testing, discussed possible treatment if that is cause. He will increase amlodipine and add losartan to daily meds. Will Avoid M[facility]RIS-I due to uncontroll ed GERD. AE of edema on higher dose amlodipine discussed. Gastroesop hageal reflux disease without esophagitis 576120647 K21.9 discussed importance of controllin g GERD especially w/ his smoking hx he is higher risk for cancer. Start PPI since he did not improve on ranitidine . Cough 81668687 R05 acute sxs improved w/ steroids. Pt instructed to start PPI and see if better sxs management . Avoid foods that exacerbate sxs especially caffeine. Generalize d anxiety disorder 48212709 F41.1 patient has had xanax in past, discussed that med is not appropriat e for daily sxs, he is agreeable to trying SSRI daily, understand s it can take 3-4 weeks for medication to take effect. Call if any problems w/ medication . Persistent insomnia 1919 41019 G47.09 Did not do well on trazodone, recommend starting Ambien short term while anxiety medication is started. Impacted c erumen in right ear 6372550773 109383 H61.21 Continued problem. He deferred ear lavage in office and will continue to use debrox at home. Body mass index 30+ - obesity 493529945 Z68.35 discussed heart healthy diet, also recommend low acid diet. Influenza vaccination declined 461387200 Z28.21 [id number] MD Ivana Bautistahalto (Adult Med) [address] [place] [address] 07/10/2018 15:30:46 07/28/2018 15:10:15 Mixed anxiety and depressive disorder 914626062 F41.8 reviewed ER visits, imaging and labs w/ patient. NO signs of cardiomyop athy on EKG or on last CXR. He did not do well on venlafaxin e, felt made his mood worse. He will only entertain PRN use benzos at this time. dwp this is not first line tx and need to consider other medication , this will be short term tx only. Essential hypertension 69820366 I10 still not optimally controlled after cardio visit. Gastroesop hageal reflux disease without esophagitis 703349384 K21.9 discussed importance of controllin g GERD especially w/ his smoking hx he is higher risk for cancer. Start PPI like OTC prilosec since he did not improve on ranitidine . [id number] MD Rodrigo Bautista (Adult Med) [address] [place] [address] 09/06/2018 09:23:18 09/06/2018 16:21:39 Gastroesophageal reflux disease without esophagitis 887270997 K21.9 Fair control, advised him on diet, reducing spicy, fried/fatt y foods and limiting caffeine. Advised to quit smoking Mixed anxi ety and depressive disorder [id number] F41.8 He has had worsening depression on multiple SSRIs, he also didn't feel buspar helped anxiety. He has been able to handle crowds and interactio n w/ strangers better on clonazepam , but doesn't feel lower dose is lasting very long and 10 days worth of meds not enough. He is agreeable to trying higher dose just once a day Essential hypertension [id number] I10 still not optimally controlled ; he agrees to using hctz when he is not working in heat and at risk for dehydratio n. cont losartan and amlodipine . Encouraged him to start exercising for weight loss and following heart healthy diet. Tobacco user [id number] Z 72.0 patient not interested in quitting at this time, he is not interested in starting medication s to help reduce amount he smokes. But he is willing to stop smoking inside the house w/c may limit amount he smokes during day. Low back pain [id number] M54.5 fair control, better when he isn't working. Obstructiv e sleep apnea syndrome [id number] G47.33 did both home study and then a lab study w/ CPAP; he will be set up for home CPAP through cardiology office. Body mass index 30+ - obesity [id number] Z68.35 discussed heart healthy diet, also recommend low acid diet. start exercise. [id number] MD Rodrigo Bautista (Adult Med) [address] [place] [address] 12/11/2018 15:31:07 12/12/2018 09:40:34 Benign hypertension [id number] I10 start taking HcTZ daily at least until summer heat starts. He deferred lowering amlodipine for LE edema and increasing HCTZ to 25mg at this time. Work on weight loss. Gastroesop hageal reflux disease without esophagitis [id number] K21.9 controlled on PPI. Tobacco user [id number] Z 72.0 He tried nicotine patches in past, gave him wild dreams. Doesn't want to try bupropion, worried after possible SI/HI. Will try chantix. Advised him it could also cause depression , SI/HI. Body mass index 30+ - obesity [id number] Z68.35 discussed heart healthy diet, also recommend low acid diet. start exercise. Will check labs. But advised him to keep food diary and actually calculate how much he is taking in on weekly basis. Edema of l ower extremity [id number] R60.0 start taking hctz daily until summer heat starts. Obstructiv e sleep apnea syndrome [id number] G47.33 did both home study and then a lab study w/ CPAP; He feels he sleeps worse when wearing CPAP. hasn't been able to keep it on through the night since he started. Recommend he f/u with sleep divorce mediator . Try to wear it for at least 4hrs. Fatigue [id number] R53.83 worried about low T; has had normal thyroid in past. Recommend he get labs after he has had a good night's sleep and first thing in AM. [id number] Zain Cruz MD [facility] (Adult Med) [address] [place] [address] 02/21/2019 12:05:24 02/22/2019 10:42:01 Gastroesophageal reflux disease without esophagitis [id number] K21.9 controlled on PPI but insurance denied his omeprazole refill since he has filled it 6 times in 365 days. he is ok w/ trying ranitidine 300 mg PO Qday. Very symptomati c without medication . he has been reducing high acidic foods. Mixed anxi ety and depressive disorder [id number] F41.8 doign well w/ PRN clonazepam ; trouble w/ insurance coverage while he was out of [facility], [employer] not covering except in [place] Benign hypertension [id number] [id number] I10 This is lowest he's had BP for over 10yrs. Cont current medication s, diet and weight loss Tobacco user [id number] Z 72.0 He tried nicotine patches in past, gave him wild dreams. Doesn't want to try bupropion, worried after possible SI/HI. Chantix not covered by insurance. Cont to decrease on own, work on getting down to 1/2 ppd at 4 mo f/u Body mass index 30+ - obesity [id number] Z68.35 He has been working on weight loss, weight at home was 245; today in clinic higher than that but 7 lb weight loss since last visit, more if home scale is accurate. He will continue w/ diet & exercise Health Concerns Section Related Observation LastModified by Organization Detai ls LastModified Time None Recorded Concern Status LastModified by Organization Details LastModified Time None Recorded Advance Directives Directive None Recorded Payers Insurance Date Sequence Insurance Name Policy Number Policy Kimble Covered Member ID Kimble Member ID Guarantor Name 02/20/2019 1 [facility] PRIOR TO 02/26/2021 (MEDICAID REPLACEMENT - HMO) Roberth Marcelo [id number] Roberth Marcelo Notes Date Note Type Note Provider Name and Address Organization Details Recorded Time 8 text/html Care Management - HypertensionReported bypatient.Self Care:under emotional stress(increased aniety over last few months) Severity:no change since last visit Associated Symptoms:no lightheadedness; no chest pain; no shortness of breath; no palpitations; no edema; no calf muscle cramps; no blurred vision; no confusion; no fatigue;dizziness(when he feels dehydrated);headaches(rel ated to hydration status)Hypertension F/UReported bypatient.Associated Symptoms:no lightheadedness; no chest pain; no shortness of breath; no palpitations; no edema; no calf pain with exertion Lifestyle:limiting/avoidi ng salt;not exercising regularly Medications:taking medications as directed; no side effects from medication; checks blood pressure at home, range: (160/100s)Notes:decreased hearing in right ear, had used debrox and flushed w/ bulb at home and yesterday felt like water trapped and hearing decreased. Cough: went to [facility] at [place], CXR clear, given steroids and cough cleared up. Still having some mild throat irritation that makes him want to cough. GERD: everyday sxs, had been on ranitidine, didn't help, taking tums throughout the day. HTN: used to be on 4 different meds. home BP still in 160/100s most days. taking amlodipine daily. doesn't want diuretic due to nature of his job gets dehydrated easily. Anxiety: prevents him from falling asleep at night, will stay awake 2 hrs after going to bed, wakes up at least once a night, recently 2-3 and hard time getting back to sleep, sometimes can't get back to sleep. He tried trazodone in past w/o relief. OTC benadryl or similar meds make him feel sleepy but doesn't feel he gets into deep sleep and will have RLS type movements during sleep. Deloris Sheppard PA-C Attn: [address] [place], [address], [place] [facility] 05/30/2018 08:56:20 8 text/html here for ER follow up re: persistent CP. pt states he has been to the ER 2 times since last visit. pt states that he was first diagnosed with enlarged heart, last ER visit dx w/ costochondritis. pt states he now feels better but interested to find out exactly what is wrong. He completed prednisone. Cough resolved from when he was dx with pneumonia and overall feels best he has felt in a while. He was worried about the enlarged heart dx.Still taking omeprazole, reflux much better since he cut back on caffeine to just once a day; worried about what he reads on internet about side effects of PPI. After last visit, he took losartan w/ HCTZ for 2-3 days because of his hands swelling. Then switched back to regular losartan. h/o low potassium, in ER it was 3.4, he has supplements at home. 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 He did not like venlafaxine, made him feel more depressed, jittery. No problems w/ taking PRN benzos in past. ER gave him clonazepam and he did ok with it. Ambien is working to help him sleep. Deloris Sheppard PA-C Attn: Accounting,[address], [place], [address], [facility] 09/26/2018 09:43:06 9 text/html Care Management - HypertensionReported bypatient.Self Care:using an ARB;under emotional stress(work stoppage due to weather. hard to pay bills, but says he had a good Rafael) Severity:no change since last visit Associated Symptoms:no blurred vision; no confusion; no headaches; no fatigueHypertension F/UReported bypatient.Associated Symptoms:no dizziness; no lightheadedness; no chest pain; no shortness of breath; no palpitations; no edema; no calf pain with exertion Lifestyle:limiting/avoidi ng salt;not exercising regularly(but wants to start) Medications:taking medications as directed; no side effects from medication Taking HCTZ from previous time and takes that PRN for any swelling in legs. Saw cardiology after his stress test, they did labs and recommended he start statin, he just started it. Anxiety: doing ok on clonazepam, but only gets 10 days worth TID dose and worse when he has to deal w/ the public. More social anxiety. buspar didn't work for him, SSRIs make depression worse. Currently not working DEBBIE: has to get CPAP but is ok with that since it allows him to sleep on his back w/ is his preference. Still not ready to quit smoking, but considering not smoking in house to limit use. Deloris Sheppard PA-C Attn: Accounting,[address] , [place], [address], [facility] 09/06/2018 11:28:17 9 text/html weight gain over last 6mo or so, he denies any change in diet or activity level, asking if Low T? He states he has trouble growing facial hair, he has intermittent impotence, he has some fatigue. Likes to cook and has been avoiding frying, choosing lean meats, doesn't drink dairy due to intolerance. 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 No formal exercise. HLD on last labs: bakes more foods, steaming veggies, tries not to eat high fat foods, no milk, thinks he is lactose intolerant. amlodipine causing LE swelling, he usually takes hctz PRN but hasn't taken it in a while.more short of breath lately, dry cough for 6mo. Went mushroom hunting and he felt short of breath. GERD is better w/ omeprazole. tobacco use: unchanged. Nicotine patches gave him wild dreams; afraid to try chantix, not comfortable with taking anti-depressant. some days he only smokes few when he is working. Deloris Sheppard PA-C Attn: Accounting[address], [place], [address], [facility] 12/12/2018 09:12:24 9 text/html Hypertension F/UReported bypatient.Associated Symptoms:no dizziness; no lightheadedness; no chest pain; no shortness of breath; no palpitations; no calf pain with exertion;edema(to ankles w/ amlodipine use) Lifestyle:regular exercise; limiting/avoiding salt Medications:taking medications as directed; no side effects from medication didn't get omeprazole refilled, ins plan no longer covering med; severe heartburn yesterday. Cut his leg while in [place] for work, using well water; went to ER for cellulitis of leg & severe swelling, given IV abx and completed 2 different abx and resolved sxs. Chantix not covered by insurance, trying to smoke less, currently 1ppd or less. working on diet & weight loss. down 20lbs per his home scale Deloris Sheppard PA-C Attn: Accounting[address], [place], [address], [facility] 02/21/2019 13:26:59
--- OUTSIDE RECORDS SUMMARY | 2025-03-20 17:42 | XMS_ITS | Referral Summary ---
Author Organization [facility] Address [address] [place] [address] Care Team Providers Care Marine Superintendent Name Role Phone Ernesto De La Rosa MD Primary Care Provider [phone] Encounters Date Type Department Care Team Description 01/15/2025 1:00 PM CDT Anesthesia Event [facility] 1 [place] [address] Camryn Palomo MD 01/15/2025 1:45 PM CDT - 01/15/2025 2:00 PM CDT Surgery [facility] 1 [place] [address] Shital Luis MD ESOPHAGOGASTRODUODENOSCOPY 01/13/2025 2:59 AM CDT - 01/15/2025 3:25 PM CDT Hospital Encounter [facility] Acute Medicine 1 [place] [address] Aydin Chaudhary MD Petters, MD Anca Stevenson Jelena, MD Sargsyan, Narine, MD Hematemesis with nausea (Primary Dx); Alcohol use disorder; BLAS (acute kidney injury); Gastroesophageal reflux disease, unspecified whether esophagitis present Discharge Disposition: Discharge to home or self care 01/13/2025 Documentation [facility] Warm Hand Off Program 1 [place], [place] [phone] Laura Leon from Last 3 Months Allergies No known active allergies Medications needle, disp, 23 gauge 23 gauge x 1 needleIndicatio ns:Hypogonadism in male Use to inject testosterone every 7 days. 25 each Active atorvastatin (LIPITOR) 80 mg tablet Take 1 tablet (80 mg total) by mouth daily 90 tablet 4 024 2024 Active testosterone cypionate (DEPO-TESTOTERO NE) 200 mg/mL injectionIndica tions:Hypogonad ism in male Inject 0.5 mL (100 mg total) into the muscle as instructed every 7 days 4 mL Active labetaloL (NORMODYNE,GALLEGOS DATE) 200 mg tabletIndicatio ns:Essential hypertension TAKE 1 TABLET(200 MG) BY MOUTH DAILY 90 tablet 1 Active Additional Information Patient taking differently: 100 mg oral Daily, Indications: hypertension, Reported on 01/13/2025 cyclobenzaprine (FLEXERIL) 10 mg tablet Take 1 tablet (10 mg total) by mouth 3 (three) times a day as needed for muscle spasms Active pantoprazole DR (PROTONIX) 40 mg EC tabletIndicatio ns:GI Bleed Take 1 tablet (40 mg total) by mouth 2 (two) times a day 60 tablet 2 [address] (PROTONIX) 40 mg EC tablet Take 1 tablet (40 mg total) by mouth daily 30 tablet 5 025 2025 Active folic acid (FOLVITE) 1 mg tablet Take 1 tablet (1 mg total) by mouth daily for 3 doses 3 tablet Active metoclopramide (REGLAN) 10 mg tablet Take 1 tablet (10 mg total) by mouth 3 (three) times a day before meals for 9 doses 9 tablet 025 Active thiamine (VITAMIN B1) 100 mg tablet Take 1 tablet (100 mg total) by mouth daily for 3 doses 3 tablet 025 Active clonazePAM (KlonoPIN) 0.5 mg tabletIndicatio ns:Generalized anxiety disorder Take 1 tablet (0.5 mg total) by mouth 3 (three) times a day as needed for anxiety 90 tablet 025 Active losartan (COZAAR) 100 mg tabletIndicatio ns:Essential hypertension TAKE 1 TABLET(100 MG) BY MOUTH DAILY 90 tablet 3 07/10/2 025 Active losartan (COZAAR) 100 mg tabletIndicatio ns:Essential hypertension TAKE 1 TABLET(100 MG) BY MOUTH DAILY 90 tablet 3 024 2024 Discontinued clonazePAM (KlonoPIN) 0.5 mg tabletIndicatio ns:Generalized anxiety disorder Take 1 tablet (0.5 mg total) by mouth 3 (three) times a day as needed for anxiety 90 tablet 025 2024 Discontinued(R eorder) Active Problems Problem Noted Date Diagnosed Date Hematemesis 01/14/2025 Hematemesis with nausea 01/13/2025 History of colon polyps 05/29/2024 Assessment & Plan (05/29/2024 3:58 PM CDT): Referral to GI for screening colonoscopy. Hypertension, essential 05/29/2024 Assessment & Plan (05/29/2024 3:59 PM CDT): Encouraged compliance labetalol, losartan. Reviewed lifestyle recommendations. Will continue to monitor. Class 2 obesity due to exces s calories without serious comorbidity with body mass index (BMI) of 36.0 to 36.9 in adult 02/16/2022 Assessment & Plan (09/28/2024 4:09 PM MACHINE SEWER): Encouraged heart healthy diet and lifestyle. Advised 150 min/week of aerobic exercise. Assessment & Plan (11/04/2022 2:40 PM MACHINE SEWER): Discussed healthy diet and importance of regular physical activity. Assessment & Plan (02/19/2022 11:00 AM CDT): BMI has dropped from 37.9 to now 31.5. weight down from 287# to now 238#. Congratulated on weight loss, lifestyle changes. Relates that he'd like to get down to 220#. Reviewed need to lose weight, reviewed health benefits. Reviewed recommendations for daily intake & activity 20-30 minutes/day. Discussed healthy diet and importance of regular physical activity. 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 Elevated LFTs 02/16/2022 Assessment & Plan (05/29/2024 3:57 PM CDT): Liver ultrasound ordered. Highly encouraged to abstain from alcohol. Avoid Tylenol. Red flags reviewed. Assessment & Plan (02/19/2022 11:02 AM CDT): ALT 7 - 55 Units/L 136 High 92 High CM 113 High 92 High 26 R Comment: Testing performed by: [facility], [address] [place] [address], [place]., [address] AST 10 - 50 Units/L 148 High 78 High CM 124 High 71 High LFTs elevated last 3 draws. Will recheck. Discussed possible statin change. Discussed avoiding tylenol & alcohol as he is able. Refused pneumococcal vaccination 02/16/2022 Hypogonadism in male 01/30/2021 Assessment & Plan (09/28/2024 4:12 PM MACHINE SEWER): Stable and well controlled. Will continue with testosterone and monitoring Assessment & Plan (05/12/2023 2:06 PM CDT): Continue testosterone 100 mg weekly Assessment & Plan (11/04/2022 2:41 PM MACHINE SEWER): Has been out of medication for the past 3-4 months. Refilled medication today and will repeat labs in 3 months. Assessment & Plan (02/19/2022 10:59 AM CDT): Component Ref Range & Units 2 mo ago (12/02/21) 4 mo ago (09/28/21) 10 mo ago (04/23/21) 1 yr ago (09/19/20) 1 yr ago (08/19/20) Testosterone 249 - 836 ng/dL 176 Low 152 Low CM 364 251 205 Low Testosterone 100mg weekly IM. Denies any injection site infection. Component Ref Range & Units 1 mo ago (09/28/21) 6 mo ago (04/23/21) 1 yr ago (09/19/20) 1 yr ago (08/19/20) Testosterone 249 - 836 ng/dL 152 Low 364 251 205 Low Had been out of needles for short time at time of last draw (152). Denies any med SE. Testosterone refilled last 01/20/22 Assessment & Plan (11/10/2021 5:54 PM CDT): Testosterone 100mg weekly IM. Denies any injection site infection. Component Ref Range & Units 1 mo ago (09/28/21) 6 mo ago (04/23/21) 1 yr ago (09/19/20) 1 yr ago (08/19/20) Testosterone 249 - 836 ng/dL 152 Low 364 251 205 Low Had been out of needles for short time at time of last draw (152). Denies any med SE. Testosterone refilled last 10/27/21 Assessment & Plan (08/07/2021 1:18 PM MACHINE SEWER): 04/23/21 t=364, had been 251 08/2021. Continues on testosterone replacement injections; 100mg weekly. Last filled 07/06/21. Denies any med SE. Assessment & Plan (05/08/2021 3:47 PM CDT): No changes in testosterone at this time. Discussed need to increase activity (belongs to [employer]). Testosterone 100mg every week IM. Refilled today. Reviewed med SE & scheduling. Assessment & Plan (02/01/2021 4:14 PM CDT): Has been injecting testosterone 100mg every 2 wks since 08/2020. Has not yet repeated T levels. Reports tapering effect around day 10. Increased testosterone to 100mg weekly. Will have T level drawn. Family history of malignant neoplasm of digestiv e organs 09/19/2019 Generalized anxiety disorder 09/19/2019 Assessment & Plan (09/28/2024 4:12 PM MACHINE SEWER): Stable and well controlled. Will continue on Klonopin and monitoring. Assessment & Plan (11/04/2022 2:48 PM MACHINE SEWER): Taking clonazepam p.r.n. with good response. Assessment & Plan (02/19/2022 10:57 AM CDT): Clonazepam 0.5mg tid prn #90 refilled 02/04/22. Reports good control of anxiety w/current regimen. No changes to be made at this time. Reviewed med Ses & scheduling. Reviewed red flags. Assessment & Plan (11/10/2021 5:50 PM CDT): Clonazepam 0.5mg tid prn #90 refilled 11/06/21. Reports good control of anxiety w/current regimen. No changes to be made at this time. Reviewed med Ses & scheduling. Reviewed red flags. Assessment & Plan (08/07/2021 1:20 PM MACHINE SEWER): Clonazepam 0.5mg tid prn #90 refilled 07/06/21. Reports good control of anxiety w/current regimen. No changes to be made at this time. Reviewed med Ses & scheduling. Reviewed red flags. Assessment & Plan (05/08/2021 3:48 PM CDT): Clonazepam 0.5mg tid prn anxiety #90 last filled 04/10/21. Refilled today. Reports good control of anxiety w/current regimen. No changes to be made at this time. Reviewed med Ses & scheduling. Reviewed red flags. Assessment & Plan (02/01/2021 3:59 PM CDT): Clonazepam 0.5mg tid prn anxiety. Refilled 01/09/21. Reports good control of anxiety w/current regimen. No changes to be made at this time. Reviewed med Ses & scheduling. Reviewed red flags. Assessment & Plan (02/12/2020 3:55 PM CDT): Changed clonazepam from 1mg daily to 0.5mg tid prn anxiety. Script sent. Aware that he may not be able to p/u until this current script out. Will call if no improvement in anxiety. Essential hypertension 07/25/2019 Assessment & Plan (09/28/2024 4:09 PM MACHINE SEWER): Blood pressure stable and well controlled. Will continue on Labetalol and Losartan. Assessment & Plan (05/12/2023 2:05 PM CDT): Blood pressure showing improvement, no changes made today. Assessment & Plan (11/04/2022 2:48 PM MACHINE SEWER): Blood pressure is not well controlled today, 140 over 100. Patient reports he has gained some weight and has started smoking again. He plans to quit smoking and start exercising again. Will continue labetalol 200 mg daily and losartan 100 mg daily. Previously did not tolerate diuretics, does not want to start calcium channel tiff. Will plan to make lifestyle changes and continue to monitor closely. Recommended nightly use of CPAP. Assessment & Plan (02/19/2022 10:56 AM CDT): Labetalol 200mg bid, losartan 100mg daily. The blood pressure is under good control. Ideally it should be under 130/80. Continue medications without adjustment. Continue efforts to eat well (4-5 fruits and veggies) daily and exercise for about 30 min nearly every day. Watch salt intake, keeping to less than 2000mg per day. Limit alcohol. Include strategies to cope with stress. Labs ordered today; will contact w/results once received. Assessment & Plan (11/10/2021 5:48 PM CDT): Labetalol 200mg bid, losartan 100mg daily. The blood pressure is under good control. Ideally it should be under 130/80. Continue medications without adjustment. Continue efforts to eat well (4-5 fruits and veggies) daily and exercise for about 30 min nearly every day. Watch salt intake, keeping to less than 2000mg per day. Limit alcohol. Include strategies to cope with stress. Labs ordered today; will contact w/results once received. Assessment & Plan (08/07/2021 1:21 PM MACHINE SEWER): Losartan 100mg daily, labetalol 200mg bid. The blood pressure is under good control. Ideally it should be under 130/80. Continue medications without adjustment. Continue efforts to eat well (4-5 fruits and veggies) daily and exercise for about 30 min nearly every day. Watch salt intake, keeping to less than 2000mg per day. Limit alcohol. Include strategies to cope with stress. Labs ordered today; will contact w/results once received. Assessment & Plan (05/08/2021 4:33 PM CDT): Labetalol 200mg bid, losartan 100mg daily The blood pressure is under good control. Ideally it should be under 130/80. Continue medications without adjustment. Continue efforts to eat well (4-5 fruits and veggies) daily and exercise for about 30 min nearly every day. Watch salt intake, keeping to less than 2000mg per day. Limit alcohol. Include strategies to cope with stress. Labs ordered today; will contact w/results once received. Assessment & Plan (02/01/2021 3:56 PM CDT): Chlorthalidone 25mg daily, labetalol 200mg bid & losartan 100mg daily.The blood pressure is under good control. Ideally it should be under 130/80. Continue medications without adjustment. Continue efforts to eat well (4-5 fruits and veggies) daily and exercise for about 30 min nearly every day. Watch salt intake, keeping to less than 2000mg per day. Limit alcohol. Include strategies to cope with stress. Labs ordered today; will contact w/results once received. Assessment & Plan (05/27/2020 3:00 PM CDT): A plan to change his amlodipine to labetalol 200 mg b.i.d. and will increase this to 400 b.i.d. if his blood pressure requires ongoing adjustment. He has been tolerant of his current medical regimen otherwise. I will tentatively review his care in about 3 months. Assessment & Plan (02/12/2020 3:53 PM CDT): Now following w/Dr Mendez. Has added chlorthalidone to regimen. Stressed that Mr Marcelo check BP Assessment & Plan (10/25/2019 11:56 AM MACHINE SEWER): Elevation today likely due to increasing anxiety Assessment & Plan (09/22/2019 1:53 PM MACHINE SEWER): Will continue amlodipine 10mg daily. Will increase losartan from 50mg to 100mg daily. To check BP/log at home. Referral entered to [facility] by Blayne Plascencia NP at appt last week. (appt w/Dr Mendez 10/10/19) To take BP log to that appt once set. rtc in 1 mo if unable to get into [facility] prior to then for BP recheck. Ideally it should be under 130/80. Continue medications without adjustment. Continue efforts to eat well (4-5 fruits and veggies) daily and exercise for about 30 min nearly every day. Watch salt intake, keeping to less than 2000mg per day. Limit alcohol. Include strategies to cope with stress. Labs ordered today; will contact w/results once received. Assessment & Plan (08/27/2019 1:34 PM MACHINE SEWER): Will place cardiology referral. He is not responding well to losartan or amlodipine nor has he responded well to the medications in the past. Advised to report to the ER for chest pain shortness of breath or any distress. Assessment & Plan (07/25/2019 11:49 AM MACHINE SEWER): He has not used his medication in over 2 months due to being out not been able to afford it. Will restart medication at current dosages and follow up in 30 days Annual physical exam 07/25/2019 Assessment & Plan (09/28/2024 4:13 PM MACHINE SEWER): In regard to health maintenance, Colonoscopy- scheduled Influenza vaccine- declined ASCVD risk: 1.4% Eat a healthy diet: focus on lean meats and proteins, more fruits, vegetables and whole grains and low in sugars and fats. Limit red meat and avoid processed meat. Maintain a healthy weight; avoid being overweight. Aim for a normal body mass index (BMI) of 18.5-24.9. Help learning to eat healthier, we can set up appointment with associate professor of literacy/inbound sales consultant. Have an active lifestyle, strive for 30 minutes of moderate exercise 5 times a week and strength or resistance training at least twice a week. Use broad-spectrum (UVA+UVB) sunscreen with SPF 30 or greater, is water resistant, limit time spent in the sun (10 am-4pm), wear hat, wear UV protective clothing, wear sunglasses. Never use a tanning bed. Skin that was irradiated may be more sensitive over your lifetime. Limit alcohol intake, 1 drink per day for a woman and 2 drinks per day for a man. Assessment & Plan (07/25/2019 11:48 AM MACHINE SEWER): Patient is without insurance at this time. Will wait 30 days to order his labs. He will have insurance at this time it will be more affordable form. He refuses to have labs done at this time due to a cost issue. Chronic midline low back pain without sciatica 1 09/24/2018 Refused influenza vaccine 07/25/2019 Assessment & Plan (11/10/2021 5:49 PM CDT): Discussed and the patient refuses immunization today. Educated regarding the need to vaccinate for personal protection and to limit the viruses in the community to protect those most vulnerable. Assessment & Plan (08/07/2021 1:21 PM MACHINE SEWER): Discussed and the patient refuses immunization today. Educated regarding the need to vaccinate for personal protection and to limit the viruses in the community to protect those most vulnerable. Assessment & Plan (09/22/2019 1:48 PM MACHINE SEWER): Discussed and the patient refuses immunization today. Educated regarding the need to vaccinate for personal protection and to limit the viruses in the community to protect those most vulnerable. Gastroesophageal reflux disease 04/24/2018 Assessment & Plan (09/28/2024 4:16 PM MACHINE SEWER): Stable and well controlled. Omeprazole will continue and monitor Hyperlipidemia 04/24/2018 Assessment & Plan (09/28/2024 4:11 PM MACHINE SEWER): LDL greatly improved and almost at goal at <70. Will continue on Atorvastatin. Will continue to monitor. Assessment & Plan (05/28/2024 4:22 PM CDT): Encourage compliance with atorvastin. Reviewed lifestyle recommendations Assessment & Plan (05/12/2023 2:06 PM CDT): Encouraged patient to take atorvastatin 40 mg daily. Assessment & Plan (11/04/2022 2:46 PM MACHINE SEWER): Patient is not currently taking atorvastatin. Will check labs today. Patient encouraged to take daily. Reviewed cardiovascular risk. Assessment & Plan (02/19/2022 11:07 AM CDT): 09/03/20 HI=263 HDL=55 VJ=802 FAJ=091 TC/HDL=5.0 HIGYLS=802 04/23/21 TX=316 HDL=41 YR=185 YKV=029 TC/HDL=6 WSOHRW=857 T=364 05/08/21 ZP=432 HDL=38 XE=752 DLU=926 TC/HDL=6.4 PLJWMK=239 08/07/21 HO=148 HDL=20 YJ=180 AFG=814 TC/HDL=13.6 IXXKQL=674 09/28/21 WJ=132 HDL=46 MF=604 CEE=857 TC/HDL=4 XEUKDX=885 12/02/21 AW=344 HDL=44 RE=935 FVA=780 TC/HDL=6 LZIOWS=358 Atorvastatin 40mg daily. Continues to lose weight. lost 49# on our scales since 07/2021 appt. Congratulated on lifestyle changes/wt loss! We will check labs and make adjustments to medications as needed. Patient should focus on limiting bad fats in the diet and using exercise as a way to improve the lipid status. Secondary prevention. Reviewed medications. Lipid panel ordered; will call w/results when rec'd. Denies any statin Ses. Reviewed diet/exercise recommendations. Reviewed red flags. Assessment & Plan (11/10/2021 5:51 PM CDT): 09/03/20 HK=715 HDL=55 OE=945 ONR=871 TC/HDL=5.0 ZLRNXN=609 04/23/21 AE=693 HDL=41 EM=452 QVJ=374 TC/HDL=6 ODNFNM=852 T=364 05/08/21 FV=830 HDL=38 HL=092 RRY=281 TC/HDL=6.4 UGQKKK=114 08/07/21 HA=920 HDL=20 NY=050 YPI=815 TC/HDL=13.6 BQMONO=177 09/28/21 CS=775 HDL=46 PE=595 WGF=433 TC/HDL=4 ATSSFW=550 Atorvastatin 40mg daily. Has lost 26# on our scales since 07/2021 appt. Congratulated on lifestyle changes/wt loss! We will check labs and make adjustments to medications as needed. Patient should focus on limiting bad fats in the diet and using exercise as a way to improve the lipid status. Secondary prevention. Reviewed medications. Lipid panel ordered; will call w/results when rec'd. Denies any statin Ses. Reviewed diet/exercise recommendations. Reviewed red flags. Assessment & Plan (08/07/2021 2:00 PM MACHINE SEWER): atorvastatin 20mg daily. Denies myalgias. 09/03/20 OS=431 HDL=55 ZA=869 NRB=656 TC/HDL=5.0 ESOQPZ=649 09/19/20 T=251 04/23/21 KM=061 HDL=41 ZP=099 KGG=554 TC/HDL=6 LLSWOU=027 T=364 05/08/21 BM=416 HDL=38 VY=129 REP=857 TC/HDL=6.4 XJTKSF=578 08/07/21 EX=802 HDL=20 LV=022 WOD=210 TC/HDL=13.6 EWFCMV=093 Will double atorvastatin from 20mg to 40mg. Reviewed diet. Needs to watch intake & increase activity. We will check labs and make adjustments to medications as needed. Patient should focus on limiting bad fats in the diet and using exercise as a way to improve the lipid status. Secondary prevention. Reviewed medications. Denies any statin Ses. Reviewed diet/exercise recommendations. Reviewed red flags. Assessment & Plan (05/08/2021 3:51 PM CDT): 04/16/20 KL=879 HDL=56 NK=937 SKO=830 TC/HDL=5 TEYBDU=456 09/03/20 NX=012 HDL=55 EM=030 CSP=479 TC/HDL=5.0 QYZUAK=381 04/23/21 ZE=490 HDL=41 CK=749 CFF=422 TC/HDL=6 ATSGPN=095 T=364 05/08/21 CY=228 HDL=38 HO=836 OVF=334 TC/HDL=6.4 JDMMRO=844 Atorvastatin 20mg daily sent. Reviewed med SE & scheduling. Stressed need for diet/activity changes. Discussed healthier options of frozen meals, better snacks. Will recheck lipid panel in 3 mos. Assessment & Plan (02/01/2021 4:00 PM CDT): 04/16/20 XS=275 HDL=56 VO=300 SZN=135 TC/HDL=5 09/03/20 HN=736 HDL=55 LZ=720 YCW=296 TC/HDL=5.0 Lipid panel ordered; will call w/results when received. Reviewed diet/exercise recommendations. Discussed need for statin if TC/LDL remains elevated. Assessment & Plan (02/12/2020 3:55 PM CDT): 09/20/19 KQ=727 HDL=55 TG=77 GQC=863 TC/HDL=4.4 Lipid panel sent to [facility]. Will be going to get labs from Dr Mendez prior to next appt. Polyp of colon 04/14/2017 Family history of malignant neoplasm of colon Assessment & Plan (02/01/2021 3:58 PM CDT): Family h/o colon cancer (MOP stage III colorectal cancer). He had his last colonoscopy 04/14/[address] Ball [address] [facility]. Was to repeat in 3 yrs. Agreeable to referral at this time. Aware that referral will be sent. Dr Betancur/Aj's office should call him to set up. Gave him their office # if he should not receive a call so he can set up. Resolved Problems Problem Noted Date Diagnosed Date Resolved Date Morbid (severe) obesity due to excess calories 12/23/2023 09/28/2024 Class 2 severe obesity due t o excess calories with serious comorbidity and body mass index (BMI) of 35.0 to 35.9 in adult 11/10/2021 2 Assessment & Plan (11/10/2021 5:55 PM CDT): Congratulated on wt loss. Down from 287# to 261#. Has changed diet. Quit drinking soda. Has been playing frisbee golf. Reviewed need to lose weight, reviewed health benefits. Reviewed recommendations for daily intake & activity 20-30 minutes/day. Discussed healthy diet and importance of regular physical activity. Palpitations 08/07/2021 02/19/2022 Assessment & Plan (08/07/2021 1:51 PM MACHINE SEWER): H/o palpitations for many years. Had holter monitor in his 20s. Denies excess caffeine intake. No CP/SOB. holter monitor ordered. Will contact w/results once rec'd. Acute nasopharyngitis 08/07/20212021 Assessment & Plan (08/07/2021 1:58 PM MACHINE SEWER): Discussed otc mucinex plain & coricidin HBP. Discussed saline rinse. Will call if no improvement in 1 week w/otc medications. Class 2 severe obesity due t o excess calories with serious comorbidity and body mass index (BMI) of 37.0 to 37.9 in adult 05/08/2021 Assessment & Plan (08/07/2021 1:19 PM MACHINE SEWER): Reviewed need to lose weight, reviewed health benefits. Reviewed recommendations for daily intake & activity 20-30 minutes/day. Discussed healthy diet and importance of regular physical activity. Assessment & Plan (05/08/2021 3:48 PM CDT): Reviewed need to lose weight, reviewed health benefits. Reviewed recommendations for daily intake & activity 20-30 minutes/day. Discussed healthy diet and importance of regular physical activity. Has gym membership at [employer]; not using currently. Subareolar lump of left breast 02/01/2021 02/19/2022 Assessment & Plan (02/01/2021 4:15 PM CDT): L breast US ordered. Aware to call [facility] to schedule. Contact info given. Will contact w/results once rec'd. Aware to check his mychart account for results. Hypogonadism male 01/30/2021 05/08/2021 Class 2 severe obesity due t o excess calories with serious comorbidity and body mass index (BMI) of 39.0 to 39.9 in adult 01/30/2021 Assessment & Plan (02/01/2021 4:14 PM CDT): Reviewed need to lose weight, reviewed health benefits. Reviewed recommendations for daily intake & activity 20-30 minutes/day. Discussed healthy diet and importance of regular physical activity. 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 Colon cancer screening 01/30/202102/19 Assessment & Plan (02/01/2021 3:58 PM CDT): Family h/o colon cancer (MOP stage III colorectal cancer). He had his last colonoscopy 04/14/[address] Ball at [facility]. Was to repeat in 3 yrs. Agreeable to referral at this time. Aware that referral will be sent. Dr Betancur/Aj's office should call him to set up. Gave him their office # if he should not receive a call so he can set up. BMI 35.0-35.9,adult 02/12/2020 01/31/20 21 Assessment & Plan (02/12/2020 3:52 PM CDT): Reviewed need to lose weight, reviewed health benefits. Reviewed recommendations for daily intake & activity 20-30 minutes/day. Discussed healthy diet and importance of regular physical activity. Obesity due to excess calori es without serious comorbidity 02/04/2020 12/05/2020 Assessment & Plan (05/27/2020 3:01 PM CDT): We discussed the importance of weight management in his metabolic syndrome. I discussed trying to lose weight 1st as a way to manage his mildly elevated LDL cholesterol. If he is unable to change his weight in 6 months initiation of a statin low-dose would be suggested. Panic disorder 10/25/2019 02/19/2022 Tobacco dependence due to cigarettes 09/22/2019 05/08/2021 Assessment & Plan (02/01/2021 4:01 PM CDT): Precontemplative. Encouraged complete smoking cessation. Discussed different types of medications & upwv-fyi-urpdcsb aides to help with cessation. Assessment & Plan (02/12/2020 3:56 PM CDT): Precontemplative. Encouraged complete smoking cessation. Discussed different types of medications & gbrw-lwo-gzrvzzj aides to help with cessation. Assessment & Plan (09/22/2019 1:53 PM MACHINE SEWER): Precontemplative. Encouraged complete smoking cessation. Discussed different types of medications & cjlb-yjh-vjixjgg aides to help with cessation. Encounter for screening for lipoid disorders 0 12/05/2020 Assessment & Plan (09/22/2019 1:51 PM MACHINE SEWER): 09/20/19 HP=305 HDL=55 TG=77 JLW=903 TC/HDL=4.4. Copy of results & written explanation/parameters given to Mr Marcelo. Need to greatly improve diet; LDL & cholesterol high. Labs given to repeat lipid panel in 3 mos. BMI 33.0-33.9,adult 09/20/2019 02/12/20 Assessment & Plan (09/22/2019 1:51 PM MACHINE SEWER): Reviewed need to lose weight, reviewed health benefits. Reviewed recommendations for daily intake & activity 20-30 minutes/day. Discussed healthy diet and importance of regular physical activity. Bronchitis 09/20/2019 12/05/2020 Assessment & Plan (09/22/2019 1:52 PM MACHINE SEWER): Zpack & medrol dose pack sent. To p/u expectorant (ie mucinex) and antihistamine (ie pat/claritin/zyrtec). Reviewed med Ses & scheduling. Aware to complete antibiotic & medrol. Reviewed red flags; what would warrant rtc or ED for further eval. Push fluids. Stressed need to STOP smoking. Sore throat 09/20/2019 12/05/2020 Assessment & Plan (09/22/2019 1:53 PM MACHINE SEWER): NEG for strep at office. Gargle with warm salt water (1tsp salt/1 cup water) Suck on ice chips, popsicles, cough drops, or throat lozenges May use warm salt water gargles for pain or otc chloraseptic spray. To change toothbrush in 72 hours. Reviewed red flags; to go to ER if any drooling or difficulty breathing. Push fluids, relative rest. Stressed need to STOP smoking. Other chronic pain 09/19/2019 2 Community acquired pneumonia 04/24/2018 09/22/2019 Smoker 04/24/2018 12/05/2020 Assessment & Plan (05/27/2020 3:01 PM CDT): We again addressed the issue of smoking cessation. Patient's as it is on his agenda. Mixed anxiety and depressive disorder 02/28/2017 09/22/2019 Anxiety 09/07/2010 09/22/2019 Assessment & Plan (08/27/2019 1:37 PM MACHINE SEWER): Well controlled with current medication Assessment & Plan (07/25/2019 11:49 AM MACHINE SEWER): Stable on current medication. Will continue current prescribed therapy. Immunizations Immunization Administration Dates Next Due Influenza LAIV (Nasal) 05/29/2022(Deferr ed: Patient Refused),05/29/2021(Deferred: Patient Refused) Influenza, Trivalent, Preser vative Free, Intramuscular 07/19/2006 Influenza, Unspecified 09/28/2024(Deferr ed: Patient Refused),05/28/2024(Deferred: Patient Refused),05/28/2024(Deferred: Patient Refused),04/29/2024(Deferred: Patient Refused),04/29/2023(Deferred: Patient Refused),05/29/2022(Deferred: Patient Refused),11/10/2021(Deferred: Patient Refused),08/07/2021(Deferred: Patient Refused),05/29/2021(Deferred: Patient Refused),05/29/2021(Deferred: Patient Refused),05/08/2021(Deferred: Patient Refused),05/08/2021(Deferred: Patient Refused),05/08/2021(Deferred: Patient Refused),04/29/2021(Deferred: Patient Refused),08/29/2020(Deferred: Patient Refused),05/29/2020(Deferred: Patient Refused),05/29/2020(Deferred: Patient Refused),05/29/2020(Deferred: Patient Refused),10/25/2019(Deferred: Patient Refused),09/20/2019(Deferred: Patient Refused),08/27/2019(Deferred: Patient Refused),08/27/2019(Deferred: Patient Refused),07/25/2019(Deferred: Patient Refused),08/29/2018(Deferred: Patient Refused),08/29/2018(Deferred: Patient Refused),08/29/2018(Deferred: Patient Refused),08/29/2018(Deferred: Patient Refused),08/29/2017(Deferred: Patient Refused),08/29/2017(Deferred: Patient Refused) Pneumococcal Conjugate, Unspecified 02/16/2022(D eferred: Patient Refused) Tdap 03/31/2017, 7,03/31/2017,03/31 Social History Tobacco Use Types Packs/Day Years Used Date Smoking Tobacco: Every Day Cigarettes 0.5 22 Started: 11/26/2000; Last attempted to quit: 11/26/2020 Smokeless Tobacco: Never Tobacco Cessation:Ready to Q uit: Not Asked; Counseling Given: Not Answered Comments:pt quit in October 2020, started smoking again 2022 Alcohol Use Standard Drinks/Week Comments Yes 0 (1 standard drink = 0.6 oz pur e alcohol) socially 2 per month AUDIT-C Answer Date Recorded Q1: How often do you have a drink containing alcohol? 4 or more times a week 01/13/2025 Q2: How many drinks containi ng alcohol do you have on a typical day when you are drinking? 7 to 9 Q3: How often do you have si x or more drinks on one occasion? Daily or almost daily 01/13/2025 PHQ-2 Answer Date Recorded PHQ-2 Total Score (If total score is 3 or more points, staff should administer the PHQ-9) 0 09/28/2024 Personal Safety Answer Date Recorded Have you ever been in or are you currently in a harmful physical or emotional relationship or is someone making you feel afraid or unsafe? Denies 01/13/2025 Sex and Gender Information Value Date Recorded Sex Assigned at Not on file Legal Sex Male 3:02 AM MACHINE SEWER Gender Identity Male 01/19/2022 9:29 PM CDT Sexual Orientation Straight 01/19/2022 9: 29 PM CDT Last Filed Vital Signs Vital Sign Reading Time Taken Comments Blood Pressure 144/94 01/15/2025 1:49 PM CDT Pulse 72 01/15/2025 1:49 PM CDT Temperature 36.3 C (97.3 F) 01/15/2025 1:49 PM CDT Respiratory Rate 20 01/15/2025 1:49 PM CDT Oxygen Saturation 96% 01/15/2025 1:49 PM CDT Inhaled Oxygen Concentration - - Weight 124.4 kg (274 lb 4 oz) 01/13/2025 8:00 AM CDT Height 185.4 cm (6' 1) 01/13/2025 8:00 AM CDT Body Mass Index 36.18 01/13/2025 8:00 AM CDT Plan of Treatment Not on file Procedures Procedure Name Priority Date/Time Associated Diagnosis Comments ESOPHAGOGASTRODUODENOSCOPY 01/15 12:49 PM CDT Hematemesis with nausea EGD 01/15/2025 12:16 PM CDT EGFR Routine 01/15/2025 3:57 AM CDT DIFFERENTIAL AUTO Routine 01/15/2025 3:57 AM CDT COMPREHENSIVE METABOLIC PANEL Routine 3:57 AM CDT CBC WITH AUTO DIFFERENTIAL Routine 01/15 3:57 AM CDT EGFR Routine 01/14/2025 8:59 AM CDT COMPREHENSIVE METABOLIC PANEL Routine 8:59 AM CDT EGFR Routine 01/14/2025 3:58 AM CDT BASIC METABOLIC PANEL Routine 01/14/2025 3:58 AM CDT HEMOGLOBIN AND HEMATOCRIT Routine 2024 3:54 AM CDT HEMOGLOBIN AND HEMATOCRIT Timed 2024 11:59 AM CDT B ABO / RH CONFIRMATION TESTING STAT 01/13/2025 11:[address] ABDOMEN PELVIS WO CONTRAST ED 6:13 AM CDT XR CHEST 1 VIEW ED 01/13/2025 3:50 AM CDT LIPASE STAT 01/13/2025 3:37 AM CDT OSMOLALITY, BLOOD STAT 01/13/2025 3:37 AM CDT OSMOLALITY, URINE STAT 01/13/2025 3:37 AM CDT DRUGS OF ABUSE SCREEN, URINE WITHOUT CONFIRMATION STAT 01/13/2025 3:37 AM CDT URINALYSIS AND REFLEX TO MICROSCOPIC AND CULTURE STAT 01/13/2025 3:37 AM CDT ETHANOL STAT 01/13/2025 2:57 AM CDT EGFR STAT 01/13/2025 2:57 AM CDT ANTIBODY SCREEN STAT 01/13/2025 2:57 AM CDT ABO/RH STAT 01/13/2025 2:57 AM CDT DIFFERENTIAL AUTO STAT 01/13/2025 2:57 AM CDT APTT STAT 01/13/2025 2:57 AM CDT PROTIME-INR STAT 01/13/2025 2:57 AM CDT TYPE AND SCREEN STAT 01/13/2025 2:57 AM CDT COMPREHENSIVE METABOLIC PANEL STAT 2:57 AM CDT CBC WITH AUTO DIFFERENTIAL STAT 01/13 2:57 AM CDT from Last 3 Months Results * EGD (01/15/2025 12:16 PM CDT) Anatomical Region Laterality Modality Other Narrative Procedure Note Shital Luis MD - 01/15/2025 12:16 PM CDT [facility] Patient Name: Roberth Marcelo Procedure Date: 01/15/2025 12:16 PM Date of : 1985 Admit Type: Inpatient Age: 39 Gender: Male Attending MD: Shital Luis M.D. Room: [facility]COPY RO[facility] 1 Note Status: Finalized Patient Profile: This is a 39 year old male. Patient admitted with nausea vomiting. Noted the steatohepatitis likelyset alcohol use. History of alcohol overdose. Procedure: Upper GI endoscopy Indications: Hematemesis Referring MD: Ernesto De La Rosa M.D. Providers: Shital Luis M.D. Impression: - Small hiatal hernia. - Lnhf-ov-qjxohida erosive esophagitis. - No specimens collected. Recommendation: - Use Protonix (pantoprazole) 40 mg PO BID for 3 months then once daily for 6 months. - Follow an antireflux regimen. Avoid alcohol use.Use txsb-nzf-tiozlsj antacid medications as needed. - Reglan 10 mg 3 times daily before meals for 3days. - Low-fat diet low-salt. If diet tolerated with no more vomiting patient may be discharged home fromGI point. Medicines: Monitored Anesthesia Care Complications: No immediate complications. Estimated Blood Loss: Estimated blood loss: none. Procedure: Pre-Anesthesia Assessment: - Prior to the procedure, a History and Physicalwas performed, and patient medications and allergieswere reviewed. The patient's tolerance of previous anesthesia was also reviewed. The risks andbenefits of the procedure and the sedation options and risks were discussed with the patient. All questions were answered, and informed consent was obtained. Prior Anticoagulants: The patient has taken noanticoagulant or antiplatelet agents. ASA Grade Assessment: Per anesthesia note and evaluation. After reviewing the risks and benefits, the patient was deemed in satisfactory condition to undergo the procedure. The benefits, risks, and alternatives to theprocedure and sedation were discussed and informed consentwas obtained. The scope was passed under direct vision. The Endoscope [id number]-H190 [id number] was introduced through the mouth, and advanced to the second partof duodenum. The upper GI endoscopy was accomplished without difficulty. The patient tolerated the procedure well. Findings: The examined duodenum was normal. The entire examined stomach was normal. No bleeding noted in theupper GI system or blood. Retroflexion stomach was unremarkable per A small 1 cm hiatal hernia was present below the GE junction. LA Grade C (one or more mucosal breaks continuous between tops of 2or more mucosal folds, less than 75% circumference) esophagitis with no bleeding was found 42 cm from the incisors. Electronically signed by Ahmad Karadaghy, M.D. Shital Luis M.D. 01/15/2025 1:31:48 PM Number of Addenda: 0 Note Initiated On: 01/15/2025 12:16 PM Procedure Code(s): --- Professional --- 87499, Esophagogastroduodenoscopy, flexible, transoral; diagnostic, including collection of specimen(s) by brushing or washing, when performed (separate procedure) Diagnosis Code(s): --- Professional --- K44.9, Diaphragmatic hernia without obstruction or gangrene K92.0, Hematemesis K21.00, Gastro-esophageal reflux disease with esophagitis, without bleeding CPT copyright 2020 [employer]. All rights reserved. The codes documented in this report are preliminary and upon covering and lining supervisor reviewmay be revised to meet current compliance requirements. Recognized by the [employer] for promoting quality in endoscopy Shital Luis MD ENDOSCOPY PROCEDURES Final Result * eGFR (01/15/2025 3:57 AM CDT) eGFR >90 >=60 mL/min/1. 73 m2 Comment: Interpretive Data Reference Interval Normal >/= 90 mL/min/1.73m2 Mildly decreased* 60 - 89 mL/min/1.73m2 Mildly to moderately decreased 45 - 59 mL/min/1.73m2 Moderately to severely decreased 30 - 44 mL/min/1.73m2 Severely decreased 15 - 29 mL/min/1.73m2 Kidney Failure < 15 mL/min/1.73m2 *Relative to young adult level Estimated glomerular filtration rate is determined by the 2020 CKD-EPI equation recommended by the National Kidney Foundation (A Unifying Approach to GFR Estimation: Recommendations of the NKF-ASK Task Force on Reassessing the Inclusion of Race in Diagnosing Kidney Disease, JASN 2020). The CKD-EPI equation should not be used for patients with unstable renal function and has not been validated in children and those over 70. Current interpretive data was last reviewed 2021. Blood 01/15/2025 3:57 AM CDT 01/15/2025 5:32 AM CDT us Tiffanie March MD LAB BLOOD ORDERABLES Final Res ult [facility] ([place]) 1 [facility] Department [place] [address] * Differential, auto (01/15/2025 3:57 AM CDT) Neutrophil abs 4.09 1.50 - 6.50 K/cumm Imm gran abs 0.02 0.00 - 0.10 K/cumm [facility] ([place]) Lymphocyte abs 2.71 0.80 - 3.30 K/cumm [facility] ([place]) Monocyte abs 0.44 0.20 - 0.80 K/cumm [facility] ([place]) Eosinophil abs 0.07 0.00 - 0.50 K/cumm [facility] ([place]) Basophil abs 0.05 0.00 - 0.10 K/cumm [facility] ([place]) Neutrophil pct 55.4 % [facility] ([place]) Comment: Interpretive Data Percent cell count reference ranges are not reported, since discordance with absolute values may lead to misinterpretation of CBC data. Current Interpretive Data was last revised on 2017. Imm gran pct 0.3 % [facility] ([place]) Comment: Interpretive Data Percent cell count reference ranges are not reported, since discordance with absolute values may lead to misinterpretation of CBC data. Current Interpretive Data was last revised on 2017. Lymphocyte pct 36.7 % [facility] ([place]) Comment: Interpretive Data Percent cell count reference ranges are not reported, since discordance with absolute values may lead to misinterpretation of CBC data. Current Interpretive Data was last revised on 2017. Monocyte pct 6.0 % [facility] ([place]) Comment: Interpretive Data Percent cell count reference ranges are not reported, since discordance with absolute values may lead to misinterpretation of CBC data. Current Interpretive Data was last revised on 2017. Eosinophil pct 0.9 % [facility] ([place]) Comment: Interpretive Data Percent cell count reference ranges are not reported, since discordance with absolute values may lead to misinterpretation of CBC data. Current Interpretive Data was last revised on 2017. Basophil pct 0.7 % [facility] ([place]) Comment: Interpretive Data Percent cell count reference ranges are not reported, since discordance with absolute values may lead to misinterpretation of CBC data. Current Interpretive Data was last revised on 2017. Blood 01/15/2025 3:57 AM CDT 01/15/2025 5:31 AM CDT us Tiffanie March MD LAB BLOOD ORDERABLES Final Res ult [facility] ([place]) 1 [facility] Department [place] [address] * (ABNORMAL) CBC with auto differential (01/15/2025 3:57 AM CDT) WBC 7.38 3.80 - 9.90 K/cumm Hgb 13.8 13.0 - 17.5 g/dL [facility] ([place]) Hct 39.0 38.9 - 50.3 % [facility] ([place]) Plt 185 150 - 400 K/cumm [facility] ([place]) MPV 10.4 9.1 - 12.3 fL [facility] ([place]) RBC 4.07(L) 4.30 - 5.80 M/cumm [facility] ([place]) MCV 95.8 81.3 - 96.4 fL [facility] [place]) MCH 33.9(H) 27.1 - 33.3 pg [facility] ([place]) MCHC 35.4 32.3 - 35.7 g/dL [facility] ([place]) RDW CV 13.1 11.1 - 14.9 % [facility] [place] RDW SD 45.9 35.7 - 48.1 fL [facility] ([place]) NRBC abs 0.00 0.00 - 0.01 K/cumm [facility] ([place]) Blood 01/15/2025 3:57 AM CDT 01/15/2025 5:31 AM CDT us Shital Luis MD LAB BLOOD ORDERABLES Final Result [facility] ([place]) 1 [facility] Department [place] [address] * Comprehensive metabolic panel (01/15/2025 3:57 AM CDT) Sodium 139 135 - 145 mmol/L Potassium, pl 3.6 3.3 - 4.9 mmol/L [facility] ([place]) Chloride 100 97 - 110 mmol/L [facility] [place]) CO2 25 22 - 32 mmol/L [facility] [place]) Anion gap 14 2 - 15 mmol/L [facility] ([place]) BUN 10 6 - 25 mg/dL [facility] ([place]) Creatinine 1.03 0.80 - 1.30 mg/dL [facility] ([place]) Comment:Icteric sample, test results may be affected. Glucose 99 70 - 199 mg/dL [facility] ([place]) Comment: Interpretive Data Fasting glucose >/= 126 mg/dl is diagnostic for diabetes. Fasting is defined as no caloric intake for at least 8 hours. Fasting glucose between 100 mg/dl to 125 mg/dl is diagnostic of prediabetes. In a patient with classic symptoms of hyperglycemia or hyperglycemic crisis, a random glucose >/= 200 mg/dl is diagnostic for diabetes. In the absence of unequivocal hyperglycemia, results should be confirmed by repeat testing. The classification and Diagnosis of Diabetes Diabetes Care 2021; 46: S19-S40. Current interpretive data was last revised 2022. Calcium 9.4 8.5 - 10.3 mg/dL [facility] ([place]) Bilirubin, total 1.2 0.1 - 1.2 mg/dL [facility] ([place]) Protein, pl 7.5 6.5 - 8.5 g/dL [facility] [place]) Albumin 4.1 3.5 - 5.0 g/dL [facility] ([place]) Alk phos 93 40 - 130 Units/L [facility] [place]) ALT 34 7 - 55 Units/L [facility] [place]) AST 37 10 - 50 Units/L [facility] ([place]) Blood 01/15/2025 3:57 AM CDT 01/15/2025 5:32 AM CDT us Shital Luis MD LAB BLOOD ORDERABLES Final Result Performing Organization Address City/[facility]/ZIP Co de Phone Number [facility] ([place]) 1 [facility] [place] [address] * eGFR (01/14/2025 8:59 AM CDT) eGFR 81 >=60 mL/min/1. 73 m2 Comment: Interpretive Data Reference Interval Normal >/= 90 mL/min/1.73m2 Mildly decreased* 60 - 89 mL/min/1.73m2 Mildly to moderately decreased 45 - 59 mL/min/1.73m2 Moderately to severely decreased 30 - 44 mL/min/1.73m2 Severely decreased 15 - 29 mL/min/1.73m2 Kidney Failure < 15 mL/min/1.73m2 *Relative to young adult level Estimated glomerular filtration rate is determined by the 2020 CKD-EPI equation recommended by the National Kidney Foundation (A Unifying Approach to GFR Estimation: Recommendations of the NKF-ASK Task Force on Reassessing the Inclusion of Race in Diagnosing Kidney Disease, JASN 2020). The CKD-EPI equation should not be used for patients with unstable renal function and has not been validated in children and those over 70. Current interpretive data was last reviewed 2021. Blood 01/14/2025 8:59 AM CDT 01/14/2025 9:24 AM CDT us Tiffanie March MD LAB BLOOD ORDERABLES Final Res ult [facility] ([place]) 1 [facility] [place] [address] * Comprehensive metabolic panel (01/14/2025 8:59 AM CDT) Sodium 136 135 - 145 mmol/L Potassium, pl 3.4 3.3 - 4.9 mmol/L [facility] [place]) Chloride 98 97 - 110 mmol/L [facility] [place]) CO2 25 22 - 32 mmol/L [facility] ([place]) Anion gap 12 2 - 15 mmol/L [facility] ([place]) BUN 10 6 - 25 mg/dL [facility] ([place]) Creatinine 1.16 0.80 - 1.30 mg/dL [facility] ([place]) Glucose 96 70 - 199 mg/dL [facility] ([place]) Comment: Interpretive Data Fasting glucose >/= 126 mg/dl is diagnostic for diabetes. Fasting is defined as no caloric intake for at least 8 hours. Fasting glucose between 100 mg/dl to 125 mg/dl is diagnostic of prediabetes. In a patient with classic symptoms of hyperglycemia or hyperglycemic crisis, a random glucose >/= 200 mg/dl is diagnostic for diabetes. In the absence of unequivocal hyperglycemia, results should be confirmed by repeat testing. The classification and Diagnosis of Diabetes Diabetes Care 2021; 46: S19-S40. Current interpretive data was last revised 2022. Calcium 8.5 8.5 - 10.3 mg/dL [facility] ([place]) Bilirubin, total 1.1 0.1 - 1.2 mg/dL [facility] ([place]) Protein, pl 6.9 6.5 - 8.5 g/dL [facility] ([place]) Albumin 3.8 3.5 - 5.0 g/dL [facility] ([place]) Alk phos 83 40 - 130 Units/L [facility] ([place]) ALT 31 7 - 55 Units/L [facility] [place]) AST 33 10 - 50 Units/L [facility] ([place]) Blood 01/14/2025 8:59 AM CDT 01/14/2025 9:24 AM CDT us Shital Luis MD LAB BLOOD ORDERABLES Final Result [facility] ([place]) 1 [facility] Department [place] [address] * eGFR (01/14/2025 3:58 AM CDT) eGFR 83 >=60 mL/min/1. 73 m2 Comment: Interpretive Data Reference Interval Normal >/= 90 mL/min/1.73m2 Mildly decreased* 60 - 89 mL/min/1.73m2 Mildly to moderately decreased 45 - 59 mL/min/1.73m2 Moderately to severely decreased 30 - 44 mL/min/1.73m2 Severely decreased 15 - 29 mL/min/1.73m2 Kidney Failure < 15 mL/min/1.73m2 *Relative to young adult level Estimated glomerular filtration rate is determined by the 2020 CKD-EPI equation recommended by the National Kidney Foundation (A Unifying Approach to GFR Estimation: Recommendations of the NKF-ASK Task Force on Reassessing the Inclusion of Race in Diagnosing Kidney Disease, JASN 2020). The CKD-EPI equation should not be used for patients with unstable renal function and has not been validated in children and those over 70. Current interpretive data was last reviewed 2021. Blood 01/14/2025 3:58 AM CDT 01/14/2025 5:55 AM CDT us Tiffanie March MD LAB BLOOD ORDERABLES Final Res ult [facility] ([place]) 1 [facility] Department [place] [address] * (ABNORMAL) Basic metabolic panel (01/14/2025 3:58 AM CDT) Sodium 138 135 - 145 mmol/L Potassium, pl 3.8 3.3 - 4.9 mmol/L [facility] Chloride 99 97 - 110 mmol/L [facility]) CO2 22 22 - 32 mmol/L [facility] Anion gap 16(H) 2 - 15 mmol/L [facility] BUN 12 6 - 25 mg/dL [facility] Creatinine 1.14 0.80 - 1.30 mg/dL [facility] Glucose 89 70 - 199 mg/dL [facility] ([place]) Comment: Interpretive Data Fasting glucose >/= 126 mg/dl is diagnostic for diabetes. Fasting is defined as no caloric intake for at least 8 hours. Fasting glucose between 100 mg/dl to 125 mg/dl is diagnostic of prediabetes. In a patient with classic symptoms of hyperglycemia or hyperglycemic crisis, a random glucose >/= 200 mg/dl is diagnostic for diabetes. In the absence of unequivocal hyperglycemia, results should be confirmed by repeat testing. The classification and Diagnosis of Diabetes Diabetes Care 2021; 46: S19-S40. Current interpretive data was last revised 2022. Calcium 8.8 8.5 - 10.3 mg/dL [facility] ([place]) Blood 01/14/2025 3:58 AM CDT 01/14/2025 5:55 AM CDT us Tiffanie March MD LAB BLOOD ORDERABLES Final Res ult Performing Organization Address [facility] Co de Phone Number [facility] ([place]) 1 [facility] [place] [address] * (ABNORMAL) Hemoglobin and hematocrit (01/14/2025 3:54 AM CDT) Hgb 13.4 13.0 - 17.5 g/dL Hct 37.8(L) 38.9 - 50.3 % [facility] ([place]) Blood 01/14/2025 3:54 AM CDT 01/14/2025 4:43 AM CDT Tiffanie March MD LAB BLOOD ORDERABLES Final Res ult Performing Organization Address [facility]/ZIP Co de Phone Number [facility] ([place]) 1 [facility] [place] [address] * ABO / Rh Confirmation Testing (01/13/2025 11:59 AM CDT) ABO/Rh Confirmation O Positive [facility] Blood 01/13/2025 11:5 9 AM CDT 01/13/2025 12:03 PM CDT Aydin Chaudhary MD LAB BLOOD ORDERABLES Final Re sult Performing Organization Address [facility]/ZIP Co de Phone Number [facility] [place]) 1 [facility] Department [place] [address] [facility] * Hemoglobin and hematocrit (01/13/2025 11:59 AM CDT) Hgb 13.6 13.0 - 17.5 g/dL Hct 39.1 38.9 - 50.3 % [facility] ([place]) Blood 01/13/2025 11:5 9 AM CDT 01/13/2025 12:03 PM CDT us Prabhjot Taveras MD LAB BLOOD ORDERABLES Fi nal Result Performing Organization Address [facility] Co de Phone Number [facility] [place]) 1 [facility] [place] [address] * CT Abdomen Pelvis WO Contrast (01/13/2025 6:13 AM CDT) Anatomical Region Laterality Modality Body N/A Computed Tomogra phy 01/13/2025 6:17 AM CDT Narrative 01/13/2025 6:21 AM CDT EXAM DESCRIPTION: CT ABDOMEN PELVIS WO CONTRAST REASON FOR STUDY: kidney injury r/o post renal r.o pancreatitis Pt stated he has been vomiting blood for hours TECHNIQUE: CT scan of the abdomen and pelvis performed without intravenous and without oral contrast using helical scanning technique. Reconstructed coronal and sagittal MPR images reviewed. All images stored on PACS. Automated exposure control was used as a dose optimization technique for this examination. COMPARISON: None. FINDINGS: The sensitivity for detection of visceral lesions is diminished without the use of intravenous contrast. LOWER CHEST: The lung bases are clear. LIVER: The liver is normal in attenuation without focal lesion. GALLBLADDER: No stones identified. Normal wall. No evidence of pericholecystic fluid. BILE DUCTS: No intrahepatic or extrahepatic ductal dilatation. PANCREAS: Normal. SPLEEN: Normal size. No focal lesions. ADRENALS: Normal. KIDNEYS/URINARY TRACT: No identified significant cystic or solid masses. No visualized stones. No hydronephrosis or hydroureter. Urinary bladder is unremarkable. VASCULATURE: There is mild atherosclerosis of the pelvic vasculature. No evidence of abdominal aortic aneurysm. GI: The stomach appears normal. There is no significant small bowel dilation or visible thickening. There are scattered diverticula of the transverse colon. The appendix is normal. PERITONEUM/MESENTERY: No ascites or free air. LYMPH NODES: There are no enlarged lymph nodes seen by CT size criteria. REPRODUCTIVE: No significant abnormality. MUSCULOSKELETAL: Multilevel degenerative changes are present in the spine. No acute abnormality is seen. OTHER: No other abnormality. IMPRESSION: No CT evidence of acute intra-abdominal or pelvic process. Colonic diverticulosis without evidence of acute diverticulitis. Mild atherosclerosis. Multilevel degenerative change in the spine. THIS IS AN ELECTRONICALLY VERIFIED FINAL REPORT 01/13/2025 6:21 AM - Electronically signed by Lilian Aly M.D. SN: Report ID: [id number] Reading Location: [id number] Procedure Note Lilian Aly MD - 01/13/2025 EXAM DESCRIPTION: CT ABDOMEN PELVIS WO CONTRAST REASON FOR STUDY: kidney injury r/o post renal r.o pancreatitis Pt stated he has been vomiting blood for hours TECHNIQUE: CT scan of the abdomen and pelvis performed without intravenousand without oral contrast using helical scanning technique. Reconstructed coronal and sagittal MPR images reviewed. All images stored on PACS.Automated exposure control was used as a dose optimization technique for this examination. COMPARISON: None. FINDINGS: The sensitivity for detection of visceral lesions is diminished withoutthe use of intravenous contrast. LOWER CHEST: The lung bases are clear. LIVER: The liver is normal in attenuation without focal lesion. GALLBLADDER: No stones identified. Normal wall. No evidence of pericholecystic fluid. BILE DUCTS: No intrahepatic or extrahepatic ductal dilatation. PANCREAS: Normal. SPLEEN: Normal size. No focal lesions. ADRENALS: Normal. KIDNEYS/URINARY TRACT: No identified significant cystic or solid masses.No visualized stones. No hydronephrosis or hydroureter. Urinary bladder is unremarkable. VASCULATURE: There is mild atherosclerosis of the pelvic vasculature. No evidence of abdominal aortic aneurysm. GI: The stomach appears normal. There is no significant small bowel dilation or visible thickening. There are scattered diverticula of the transverse colon. The appendix is normal. PERITONEUM/MESENTERY: No ascites or free air. LYMPH NODES: There are no enlarged lymph nodes seen by CT size criteria. REPRODUCTIVE: No significant abnormality. MUSCULOSKELETAL: Multilevel degenerative changes are present in thespine. No acute abnormality is seen. OTHER: No other abnormality. IMPRESSION: No CT evidence of acute intra-abdominal or pelvic process. Colonic diverticulosis without evidence of acute diverticulitis. Mild atherosclerosis. Multilevel degenerative change in the spine. THIS IS AN ELECTRONICALLY VERIFIED FINAL REPORT 01/13/2025 6:21 AM - Electronically signed by Lilian Aly M.D. SN: SN Report ID: [id number] Reading Location: [id number] Aydin Chaudhary MD IMG CT PROCEDURES Final Resul t * XR Chest 1 Vw Portable (01/13/2025 3:50 AM CDT) Anatomical Region Laterality Modality Body, Chest N/A Computed Radiogr aphy 01/13/2025 4:16 AM CDT Narrative 01/13/2025 4:17 AM CDT EXAM DESCRIPTION: XR CHEST 1 VIEW REASON FOR STUDY: rule out perforation hematemesis Vomiting Blood for a Few Hours. Ex-Smoker Enlarged Heart Hypertension Hx of Pneumonia TECHNIQUE: Single radiographic view of the chest. COMPARISON: Chest x-ray of June 26, 2018. FINDINGS: LUNGS/PLEURA: No focal consolidation or pneumothorax. No pleural effusion. There is no significant change as compared to previous study. HEART/MEDIASTINUM: Cardiac silhouette is normal. Remaining mediastinal silhouettes are unremarkable. HARDWARE/LINES/TUBES: None. BONES: No acute findings. IMPRESSION: No acute cardiopulmonary abnormality. THIS IS AN ELECTRONICALLY VERIFIED FINAL REPORT 01/13/2025 4:17 AM - Electronically signed by Lilian Aly M.D. SN: SN Report ID: [id number] Reading Location: [id number] Procedure Note Lilian Aly MD - 01/13/2025 EXAM DESCRIPTION: XR CHEST 1 VIEW REASON FOR STUDY: rule out perforation hematemesis Vomiting Blood for a Few Hours. Ex-Smoker Enlarged Heart HypertensionHx of Pneumonia TECHNIQUE: Single radiographic view of the chest. COMPARISON: Chest x-ray of June 26, 2018. FINDINGS: LUNGS/PLEURA: No focal consolidation or pneumothorax. No pleuraleffusion. There is no significant change as compared to previous study. HEART/MEDIASTINUM: Cardiac silhouette is normal. Remaining mediastinal silhouettes are unremarkable. HARDWARE/LINES/TUBES: None. BONES: No acute findings. IMPRESSION: No acute cardiopulmonary abnormality. THIS IS AN ELECTRONICALLY VERIFIED FINAL REPORT 01/13/2025 4:17 AM - Electronically signed by Lilian Aly M.D. SN: SN Report ID: [id number] Reading Location: [place] [id number] Aydin Chaudhary MD IMG XR PROCEDURES Final Resul t * Urinalysis reflex to microscopic and culture Urine (01/13/2025 3:37 AM CDT) Color, ur Straw Yellow Clarity, ur Clear Clear [facility] ([place]) Specific gravity, ur 1.009 1.003 - 1.030 [facility] ([place]) pH, urine 5.0 [facility] ([place]) Comment: Interpretive Data U rine pH is affected by diet, medications, systemic acid-base disturbances, and renal tubular function. pH may affect urinary stone formation. For example, urine pH below 6.0 may help reduce the tendency for calcium phosphate stones and pH greater than 6.0 may reduce the tendency for uric acid stone formation. Source: [employer] Current Interpretive Data was last revised on 2017 Protein, ur ql Negative Negative [facility] ([place]) Glucose, ur ql Negative Negative [facility] [place]) Ketones, ur Negative Negative [facility] [place]) Bilirubin, ur Negative Negative [facility] [place]) Blood, ur Negative Negative [facility] [place]) Urobilinogen, ur <2.0 <2.0 mg/dL [facility] [place]) Nitrite, ur Negative Negative [facility]) Leukocyte esterase, ur Negative Negative [facility] [place]) UA reflex comment Reflex conditions for microscopic UA and culture not met. [facility] ([place]) Urine 01/13/2025 3:37 AM CDT 01/13/2025 3:43 AM CDT Aydin Chaudhary MD LAB MICROBIOLOGY - GENERAL OR DERABLES Final Result [facility] ([place]) 1 [facility] Department [place] [address] * (ABNORMAL) Drugs of Abuse Screen, Urine without Confirmation (01/13/2025 3:37 AM CDT) Amphetamine, ur Not Detected CutOff 500ng/mL Comment: Interpretive Data - Amphetamines: Samples containing greater than 500 ng/mL d-methamphetamine or other cross-reacting amphetamine compounds are reported as positive. Amphetamine immunoassays are subject to significant false positive rates due to cross-reactivity of non-amphetamine drugs. Confirmatory testing required for definitive results. Current Interpretive Data was last reviewed 2023. Barbiturates, ur Not Detected CutOff 200ng/mL [facility] ([place]) Comment: Interpretive Data - Barbiturates: Samples containing greater than 200 ng/mL secobarbital or other cross-reacting barbiturate compounds are reported as positive. False positive and false negative results are possible. Confirmatory testing required for definitive results. Current Interpretive Data was last reviewed 2023. Benzodiazepines, ur Screen Positive, presumptive (A) CutOff 100ng/mL [facility] ([place]) Comment: Interpretive Data - Benzodiazepines: Samples containing greater than 100 ng/mL nordiazepam or other cross-reacting compounds are reported as positive. False positive and false negative results are possible. Confirmatory testing required for definitive results. Current Interpretive Data was last reviewed 2023. Cannabinoids, ur Not Detected CutOff 50 ng/mL [facility] ([place]) Comment: Interpretive Data - Cannabinoids: Samples containing greater than 50 ng/mL delta-9 THC -COOH or other cross- reacting compounds are reported as positive. False positive and false negative results are possible. Confirmatory testing required for definitive results. Current Interpretive Data was last reviewed 2023. Cocaine, ur Not Detected CutOff 150ng/mL [facility] ([place]) Comment: Interpretive Data - Cocaine: Samples containing greater than 150 ng/mL benzoylecgonine or other cross- reacting compounds are reported as positive. False positive and false negative results are possible. Confirmatory testing required for definitive results. Current Interpretive Data was last reviewed 2023. Fentanyl, Ur Not Detected CutOff 5 ng/mL [facility] ([place]) Comment: Interpretive Data - Fentanyl: Samples containing greater than 5 ng/mL norfentanyl, fentanyl, or other cross-reacting fentanyl compounds are reported as positive. False positive and false negative results are possible. Confirmatory testing required for definitive results. Current Interpretive Data was last reviewed 2023. Methadone, ur Not Detected CutOff 300ng/mL [facility] ([place]) Comment: Interpretive Data - Methadone: Samples containing greater than 300 ng/mL d,l-methadone or other cross-reacting compounds are reported as positive. False positive and false negative results are possible. Confirmatory testing required for definitive results. Current Interpretive Data was last reviewed 2023. Opiates, ur Not Detected CutOff 300ng/mL [facility] ([place]) Comment: Interpretive Data - Opiates: Samples containing greater than 300 ng/mL morphine or other cross-reacting compounds are reported as positive. False positive and false negative results are possible. Confirmatory testing required for definitive results. Current Interpretive Data was last reviewed 2023. Oxycodone, ur Not Detected CutOff 100ng/mL [facility] ([place]) Comment: Interpretive Data - Oxycodone: Samples containing greater than 100 ng/mL oxycodone or other cross-reacting compounds are reported as positive. False positive and false negative results are possible. Confirmatory testing required for definitive results. Current Interpretive Data was last reviewed 2023. Phencyclidine, ur Not Detected CutOff 25 ng/mL [facility] ([place]) Comment: Interpretive Data - Phencyclidine: Samples containing greater than 25 ng/mL phencyclidine or other cross-reacting compounds are reported as positive. False positive and false negative results are possible. Confirmatory testing required for definitive results. Current Interpretive Data was last reviewed 2023. Urine Creatinine 76 mg/dL [facility] ([place]) Comment: Interpretive Data Urine Creatinine: < 10 mg/dL is extremely dilute = or > 10 but < 20 mg/dL is dilute = or > 20 mg/dL is normal Current Interpretive Data was last revised on 2017. Urine 01/13/2025 3:37 AM CDT 01/13/2025 3:43 AM CDT Narrative [facility] ([place]) - 01/13/2025 4:01 AM CDT Drug of Abuse screening is performed by immunoassay for medical purposes only. This is not to be used for Pain Management purposes. Aydin Chaudhary MD LAB URINE ORDERABLES Final Re sult Performing Organization Address City/[facility]/ZIP Co de Phone Number [facility] ([place]) 1 [facility] [place] [employer] [address] * Osmolality, urine (01/13/2025 3:37 AM CDT) Osmo, ur 355 mOsm/kg Comment:Testing performed by : [facility], [address] [place] [address]., [id number] Urine 01/13/2025 3:37 AM CDT 01/13/2025 2:00 PM CDT Aydin Chaudhary MD LAB URINE ORDERABLES Final Re sult [facility] ([place] 1 [place] [address] * (ABNORMAL) Osmolality, blood (01/13/2025 3:37 AM CDT) Osmo 384(C) 275 - 300 mOsm/kg Comment: reviewed Testing performed by: [facility], [address] [place] [address]., [id number] Blood 01/13/2025 3:37 AM CDT 01/13/2025 2:01 PM CDT us Aydin Chaudhary MD LAB BLOOD ORDERABLES Final Re sult [facility] ([place]) 1 [facility] [place] [employer] [address] * Lipase (01/13/2025 3:37 AM CDT) Lipase 26 10 - 99 Units/L Blood 01/13/2025 3:37 AM CDT 01/13/2025 5:25 AM CDT Aydin Chaudhary MD LAB BLOOD ORDERABLES Final Re sult Performing Organization Address [facility] Co de Phone Number [facility] ([place]) 1 [facility] [place] [employer] [address] * (ABNORMAL) eGFR (01/13/2025 2:57 AM CDT) eGFR 55(L) >=60 mL/min/1. 73 m2 Comment: Interpretive Data Reference Interval Normal >/= 90 mL/min/1.73m2 Mildly decreased* 60 - 89 mL/min/1.73m2 Mildly to moderately decreased 45 - 59 mL/min/1.73m2 Moderately to severely decreased 30 - 44 mL/min/1.73m2 Severely decreased 15 - 29 mL/min/1.73m2 Kidney Failure < 15 mL/min/1.73m2 *Relative to young adult level Estimated glomerular filtration rate is determined by the 2020 CKD-EPI equation recommended by the National Kidney Foundation (A Unifying Approach to GFR Estimation: Recommendations of the NKF-ASK Task Force on Reassessing the Inclusion of Race in Diagnosing Kidney Disease, JASN 2020). The CKD-EPI equation should not be used for patients with unstable renal function and has not been validated in children and those over 70. Current interpretive data was last reviewed 2021. Blood 01/13/2025 2:57 AM CDT 01/13/2025 3:08 AM CDT us Aydin Chaudhary MD LAB BLOOD ORDERABLES Final Re sult [facility] ([place]) 1 [facility] Department [place] [address] * (ABNORMAL) Differential, auto (01/13/2025 2:57 AM CDT) Neutrophil abs 4.31 1.50 - 6.50 K/cumm Imm gran abs 0.02 0.00 - 0.10 K/cumm [facility] ([place]) Lymphocyte abs 4.29(H) 0.80 - 3.30 K/cumm [facility] ([place]) Monocyte abs 0.59 0.20 - 0.80 K/cumm [facility] ([place]) Eosinophil abs 0.13 0.00 - 0.50 K/cumm [facility] ([place]) Basophil abs 0.10 0.00 - 0.10 K/cumm [facility] ([place]) Neutrophil pct 45.6 % [facility] ([place]) Comment: Interpretive Data Percent cell count reference ranges are not reported, since discordance with absolute values may lead to misinterpretation of CBC data. Current Interpretive Data was last revised on 2017. Imm gran pct 0.2 % [facility] ([place]) Comment: Interpretive Data Percent cell count reference ranges are not reported, since discordance with absolute values may lead to misinterpretation of CBC data. Current Interpretive Data was last revised on 2017. Lymphocyte pct 45.4 % [facility] ([place]) Comment: Interpretive Data Percent cell count reference ranges are not reported, since discordance with absolute values may lead to misinterpretation of CBC data. Current Interpretive Data was last revised on 2017. Monocyte pct 6.3 % [facility] ([place]) Comment: Interpretive Data Percent cell count reference ranges are not reported, since discordance with absolute values may lead to misinterpretation of CBC data. Current Interpretive Data was last revised on 2017. Eosinophil pct 1.4 % [facility] ([place]) Comment: Interpretive Data Percent cell count reference ranges are not reported, since discordance with absolute values may lead to misinterpretation of CBC data. Current Interpretive Data was last revised on 2017. Basophil pct 1.1 % [facility] ([place]) Comment: Interpretive Data Percent cell count reference ranges are not reported, since discordance with absolute values may lead to misinterpretation of CBC data. Current Interpretive Data was last revised on 2017. Blood 01/13/2025 2:57 AM CDT 01/13/2025 3:08 AM CDT us Aydin Chaudhary MD LAB BLOOD ORDERABLES Final Re sult [facility] ([place]) 1 [facility] Department [place] [address] * (ABNORMAL) CBC with auto differential (01/13/2025 2:57 AM CDT) WBC 9.44 3.80 - 9.90 K/cumm Hgb 15.4 13.0 - 17.5 g/dL [facility] ([place]) Hct 43.9 38.9 - 50.3 % [facility] ([place]) Plt 273 150 - 400 K/cumm [facility] ([place]) MPV 9.4 9.1 - 12.3 fL [facility] [place]) RBC 4.57 4.30 - 5.80 M/cumm [facility] ([place]) MCV 96.1 81.3 - 96.4 fL [facility] [place]) MCH 33.7(H) 27.1 - 33.3 pg [facility] [place]) MCHC 35.1 32.3 - 35.7 g/dL [facility] [place]) RDW CV 13.6 11.1 - 14.9 % [facility] [place]) RDW SD 48.1 35.7 - 48.1 fL [facility] [place]) NRBC abs 0.00 0.00 - 0.01 K/cumm [facility] ([place]) Blood Venous blood specimen / Unknown 01/13/2025 2:57 AM CDT 01/13/2025 3:08 AM CDT Aydin Chaudhary MD LAB BLOOD ORDERABLES Final Re sult Performing Organization Address City/[facility]/ZIP Co de Phone Number [facility] ([place]) 1 [facility] [place] [address] * ABO/Rh (01/13/2025 2:57 AM CDT) ABO/Rh O Positive Blood 01/13/2025 2:57 AM CDT 01/13/2025 3:18 AM CDT Narrative [facility] ([place]) - 01/13/2025 3:47 AM CDT Has the patient had Daratumumab or Isatuximab in the past 6 months?->Unknown Aydin Chaudhary MD LAB BLOOD BANK TEST ORDERABLE S Final Result Performing Organization Address [facility] Co de Phone Number [facility] ([place]) 1 [facility] [place] [address] * aPTT (01/13/2025 2:57 AM CDT) aPTT 33 28 - 38 sec [facility] ([place]) Comment: Interpretive Data Heparin therapeutic range: 66.0 - 100.0 seconds. Range based on correlation with therapeutic heparin activity range of 0.3 - 0.7 Units/mL. Current interpretive data was last revised on 2023. Blood 01/13/2025 2:57 AM CDT 01/13/2025 3:18 AM CDT Aydin Chaudhary MD LAB BLOOD ORDERABLES Final Re sult Performing Organization Address City/[facility]/ZIP Co de Phone Number [facility] ([place]) 1 [facility] [place] [address] * Protime-INR (01/13/2025 2:57 AM CDT) PT 11.3 9.7 - 13.0 sec [facility] ([place]) INR 1.05 0.90 - 1.20 [facility] ([place]) Comment: Interpretive data Oral anticoagulant therapeutic ranges: Venous thromboembolism prophylaxis or treatment: 2.0-3.0 CARDIOLOGY Standard range: 2.0-3.0 High-intensity range: 2.5-3.5 Refer to indication-specific guidelines for appropriate target ranges for prosthetic heart valve replacement. Current interpretive data was last revised on 2019. Blood 01/13/2025 2:57 AM CDT 01/13/2025 3:18 AM CDT Aydin Chaudhary MD LAB BLOOD ORDERABLES Final Re sult Performing Organization Address City/[facility]/ZIP Co de Phone Number [facility] ([place]) 1 [facility] [place] [address] * Antibody screen (01/13/2025 2:57 AM CDT) Twin, indirect, Gel Interpretation Negative ABSC Blood 01/13/2025 2:57 AM CDT 01/13/2025 3:18 AM CDT Narrative [facility] ([place]) - 01/13/2025 4:20 AM CDT Has the patient had Daratumumab or Isatuximab in the past 6 months?->Unknown Aydin Chaudhary MD LAB BLOOD BANK TEST ORDERABLE S Final Result Performing Organization Address [facility] Co de Phone Number [facility] ([place]) [address] [place] [address] [place] [address] * (ABNORMAL) Ethanol (01/13/2025 2:57 AM CDT) Ethanol 329(C) <=10 mg/dL Comment: Critical Result called by [id number] at 2025-01-13 04:11:29. Result Read Back by Fadumo Anaya ED Interpretive Data Legal limit of intoxication > or = 80 mg/dL Levels > or = 400 mg/dL are potentially TOXIC. Current interpretive data was last revised on 2018. Blood 01/13/2025 2:57 AM CDT 01/13/2025 3:50 AM CDT us Aydin Chaudhary MD LAB BLOOD ORDERABLES Final Re sult [facility] ([place]) 1 [facility] Department [place] [address] * (ABNORMAL) Comprehensive metabolic panel (01/13/2025 2:57 AM CDT) Sodium 144 135 - 145 mmol/L Potassium, pl 4.2 3.3 - 4.9 mmol/L [facility] ([place]) Chloride 103 97 - 110 mmol/L [facility] ([place]) CO2 28 22 - 32 mmol/L [facility] ([place] Anion gap 14 2 - 15 mmol/L [facility] ([place]) BUN 17 6 - 25 mg/dL [facility] ([place]) Creatinine 1.61(H) 0.80 - 1.30 mg/dL [facility] ([place]) Glucose 128 70 - 199 mg/dL [facility] ([place]) Comment: Interpretive Data Fasting glucose >/= 126 mg/dl is diagnostic for diabetes. Fasting is defined as no caloric intake for at least 8 hours. Fasting glucose between 100 mg/dl to 125 mg/dl is diagnostic of prediabetes. In a patient with classic symptoms of hyperglycemia or hyperglycemic crisis, a random glucose >/= 200 mg/dl is diagnostic for diabetes. In the absence of unequivocal hyperglycemia, results should be confirmed by repeat testing. The classification and Diagnosis of Diabetes Diabetes Care 202; 46: S19-S40. Current interpretive data was last revised 2022. Calcium 9.9 8.5 - 10.3 mg/dL [facility] ([place]) Bilirubin, total 0.4 0.1 - 1.2 mg/dL [facility] ([place]) Protein, pl 7.8 6.5 - 8.5 g/dL [facility] ([place]) Albumin 4.3 3.5 - 5.0 g/dL [facility] ([place]) Alk phos 104 40 - 130 Units/L [facility] [place]) ALT 50 7 - 55 Units/L [facility] [place] AST 50 10 - 50 Units/L [facility] ([place]) Comment:Slightly Hemolyzed S pecimen Blood Venous blood specimen / Unknown 01/13/2025 2:57 AM CDT 01/13/2025 3:08 AM CDT Aydin Chaudhary MD LAB BLOOD ORDERABLES Final Re sult [facility] ([place]) 1 [facility] Department [place] [address] from Last 3 Months Insurance [facility] Advance Directives For more information, please contact: [phone] * Full Code (Latest Code Status on File) Date Activated Date Inactivated Comments 01/15/2025 12:06 PM 01/15/2025 7:30 PM * Full Code Date Activated Date Inactivated Comments 01/13/2025 6:19 AM 01/15/2025 12:06 PM 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
[2025-03-20 17:43] VITALS: BP 151/89; PULSE 116; RESP 20; TEMP 36.5; O2SAT 97
--- OUTSIDE RECORDS SUMMARY | 2025-03-20 17:43 | XMS_ITS | Clinical Summary ---
Author Organization [facility] Address [address] [facility] [address] [place] [address] Phone Care Team Providers Care Animal Care Worker Name Role Phone Deloris Sheppard Primary Care Provider [phone] Allergies No known active allergies Medications HYDROCHLOROTHIA ZIDE PO Take 1 Tab by mouth daily. Active azithromycin (ZITHROMAX Z-DARON) 250 MG Tablet 2 tab(s) daily for 1 day, then 1 tab(s) daily for days 2-5. 6 Tab 8 Active Additional Information Patient not taking.Reported on 11/20/2024 HYDROcodone-ellie taminophen (NORCO) 5-325 MG Tablet Take 1-2 Tabs by mouth every 4 hours as needed for Moderate or more severe pain. 20 Tab 8 Active Additional Information Patient not taking.Reported on 11/20/2024 amLODIPine (NORVASC) 10 MG Tablet Take 10 mg by mouth daily. Active losartan (COZAAR) 100 MG Tablet Take 100 mg by mouth every morning. Active Omeprazole 20 MG Tablet Delayed Response Take by mouth as needed. Active clonazePAM (KLONOPIN) 0.5 MG TabletIndicatio ns:Anxiety Take 0.5 mg by mouth 3 times daily. Indications: Feeling Anxious Active MELOXICAM PO Take by mouth. Ac tive traMADol (ULTRAM) 50 MG TabletIndicatio ns:Dental abscess Take 1-2 Tablets by mouth every 6 hours as needed for Moderate or more severe pain. 15 Tablet Active Additional Information Patient not taking.Reported on 11/20/2024 Encounters Date Type Department Care Team Description 12/24/2024 Travel from Last 3 Months Family History Medical History Relation Name Comments Hypertension Father Diabetes Maternal Uncle Cancer Mother colon Hypertension Mother Relation Name Status Comments Father Alive Maternal Uncle Mother Alive Social History Tobacco Use Types Packs/Day Years Used Date Smoking Tobacco: Every Day Cigarettes 1 20 Smokeless Tobacco: Never Tobacco Cessation:Ready to Q uit: Yes; Counseling Given: Yes Comments:1-2 cigarettes per day Alcohol Use Standard Drinks/Week Comments Yes 0 (1 standard drink = 0.6 oz pur e alcohol) socially Sex and Gender Information Value Date Recorded Sex Assigned at Not on file Legal Sex Male 11:53 PM CDT Gender Identity Not on file Sexual Orientation Not on file Last Filed Vital Signs Vital Sign Reading Time Taken Comments Blood Pressure 126/78 2023 3:00 PM CDT Pulse 82 2023 3:00 PM CDT Temperature 36.6 C (97.9 F) 2023 1:57 PM CDT Respiratory Rate 16 2023 1:57 PM CDT Oxygen Saturation 93% 2023 3:00 PM CDT Inhaled Oxygen Concentration - - Weight 124.7 kg (275 lb) 12/24/2024 4:11 PM CDT Height 185.4 cm (6' 1) 12/24/2024 4:11 PM CDT Body Mass Index 36.28 12/24/2024 4:11 PM CDT Plan of Treatment Health Maintenance Due Date Last Done Comments Hepatitis C Virus (HCV) Screening 1983 Human Papillomavirus (HPV) Immunization (1 - Male 3-dose series) 1998 Hepatitis B Immunization (1 of 3 - 19+ 3-dose series) 2002 Pneumococcal Immunization Co mbined (1 of 2 - PCV) 2002 SARS-COV-2 Immunization (1 - season) 2024 Influenza Immunization (#1) 2025 07/19/2006 Respiratory Syncytial Virus (RSV) Immunization (Adult) (1 - 1-dose 75+ series) 2058 DTaP/Tdap/Td Immunization Discontinued 03/31/2017 TdaP Immunization Completed 03/31/2017 Meningococcal Immunization (ACWY) Aged Out No longer eligible based on patient's age to complete this topic Rotavirus Immunization Aged Out No lo nger eligible based on patient's age to complete this topic Insurance [place] Care Teams Animal Care Worker Relationship Specialty Start Date End Date Deloris Sheppard PA [address] [address] PCP - General Adult Medicine 06/22/18
--- OUTSIDE RECORDS SUMMARY | 2025-03-20 17:43 | XMS_ITS | Clinical Summary ---
Author Organization [facility] Address [address] [place] [address] Care Team Providers Care Statement Clerks Manager Name Role Phone Ernesto De La Rosa MD Primary Care Provider [phone] Allergies No known active allergies Medications needle, disp, 23 gauge 23 gauge x 1 needleIndicatio ns:Hypogonadism in male Use to inject testosterone every 7 days. 25 each 021 Active atorvastatin (LIPITOR) 80 mg tablet Take 1 tablet (80 mg total) by mouth daily 90 tablet 4 024 2024 Active testosterone cypionate (DEPO-TESTOTERO NE) 200 mg/mL injectionIndica tions:Hypogonad ism in male Inject 0.5 mL (100 mg total) into the muscle as instructed every 7 days 4 mL 025 Active labetaloL (NORMODYNE,GALLEGOS DATE) 200 mg tabletIndicatio ns:Essential hypertension TAKE 1 TABLET(200 MG) BY MOUTH DAILY 90 tablet 1 025 Active Additional Information Patient taking differently: 100 [...] for 3 doses 3 tablet 025 Active metoclopramide (REGLAN) 10 mg tablet Take [...] MG) BY MOUTH DAILY 90 tablet 3 025 Active losartan (COZAAR) 100 mg tabletIndicatio [...] 02/16/2022 Assessment & Plan (09/28/2024 4:09 PM SKID STRAPPER): Encouraged heart healthy diet and lifestyle. Advised 150 min/week of aerobic exercise. Assessment & Plan (11/04/2022 2:40 PM SKID STRAPPER): Discussed healthy diet and importance of regular [...] High 26 R Comment: Testing performed by: [facility], [address] [place] [address]., [id number] AST 10 - 50 Units/L 148 High 78 High CM 124 High 71 High LFTs elevated last 3 draws. Will recheck. Discussed possible statin change. Discussed avoiding tylenol & alcohol as he is able. Refused pneumococcal vaccination 02/16/2022 Hypogonadism in male 01/30/2021 Assessment & Plan (09/28/2024 4:12 PM SKID STRAPPER): Stable and well controlled. Will continue with testosterone and monitoring Assessment & Plan (05/12/2023 2:06 PM CDT): Continue testosterone 100 mg weekly Assessment & Plan (11/04/2022 2:41 PM SKID STRAPPER): Has been out of medication for the [...] 10/27/21 Assessment & Plan (08/07/2021 1:18 PM SKID STRAPPER): 04/23/21 t=364, had been 251 08/2021. Continues [...] 09/19/2019 Assessment & Plan (09/28/2024 4:12 PM SKID STRAPPER): Stable and well controlled. Will continue on Klonopin and monitoring. Assessment & Plan (11/04/2022 2:48 PM SKID STRAPPER): Taking clonazepam p.r.n. with good response. Assessment [...] flags. Assessment & Plan (08/07/2021 1:20 PM SKID STRAPPER): Clonazepam 0.5mg tid prn #90 refilled 07/06/21. [...] 07/25/2019 Assessment & Plan (09/28/2024 4:09 PM SKID STRAPPER): Blood pressure stable and well controlled. Will continue on Labetalol and Losartan. Assessment & Plan (05/12/2023 2:05 PM CDT): Blood pressure showing improvement, no changes made today. Assessment & Plan (11/04/2022 2:48 PM SKID STRAPPER): Blood pressure is not well controlled today, [...] received. Assessment & Plan (08/07/2021 1:21 PM SKID STRAPPER): Losartan 100mg daily, labetalol 200mg bid. The [...] BP Assessment & Plan (10/25/2019 11:56 AM SKID STRAPPER): Elevation today likely due to increasing anxiety Assessment & Plan (09/22/2019 1:53 PM SKID STRAPPER): Will continue amlodipine 10mg daily. Will increase losartan from 50mg to 100mg daily. To check BP/log at home. Referral entered to [facility] by Blayne Plascencia NP at appt last week. (appt w/Dr Mendez 10/10/19) To take BP log to that appt once set. rtc in 1 mo if unable to get into [facility] prior to then for BP recheck. [...] received. Assessment & Plan (08/27/2019 1:34 PM SKID STRAPPER): Will place cardiology referral. He is not responding well to losartan or amlodipine nor has he responded well to the medications in the past. Advised to report to the ER for chest pain shortness of breath or any distress. Assessment & Plan (07/25/2019 11:49 AM SKID STRAPPER): He has not used his medication in over 2 months due to being out not been able to afford it. Will restart medication at current dosages and follow up in 30 days Annual physical exam 07/25/2019 Assessment & Plan (09/28/2024 4:13 PM SKID STRAPPER): In regard to health maintenance, Colonoscopy- scheduled [...] healthier, we can set up appointment with hay rake operator/injection mold technician. Have an active lifestyle, strive for 30 [...] man. Assessment & Plan (07/25/2019 11:48 AM SKID STRAPPER): Patient is without insurance at this time. [...] vulnerable. Assessment & Plan (08/07/2021 1:21 PM SKID STRAPPER): Discussed and the patient refuses immunization today. Educated regarding the need to vaccinate for personal protection and to limit the viruses in the community to protect those most vulnerable. Assessment & Plan (09/22/2019 1:48 PM SKID STRAPPER): Discussed and the patient refuses immunization today. Educated regarding the need to vaccinate for personal protection and to limit the viruses in the community to protect those most vulnerable. Gastroesophageal reflux disease 04/24/2018 Assessment & Plan (09/28/2024 4:16 PM SKID STRAPPER): Stable and well controlled. Omeprazole will continue and monitor Hyperlipidemia 04/24/2018 Assessment & Plan (09/28/2024 4:11 PM SKID STRAPPER): LDL greatly improved and almost at goal at <70. Will continue on Atorvastatin. Will continue to monitor. Assessment & Plan (05/28/2024 4:22 PM CDT): Encourage compliance with atorvastin. Reviewed lifestyle recommendations Assessment & Plan (05/12/2023 2:06 PM CDT): Encouraged patient to take atorvastatin 40 mg daily. Assessment & Plan (11/04/2022 2:46 PM SKID STRAPPER): Patient is not currently taking atorvastatin. Will check labs today. Patient encouraged to take daily. Reviewed cardiovascular risk. Assessment & Plan (02/19/2022 11:07 AM CDT): 09/03/20 FO=835 HDL=55 VR=460 FMP=443 TC/HDL=5.0 YSTPYB=730 04/23/21 TV=450 HDL=41 HW=919 MID=420 TC/HDL=6 HGKIQD=991 T=364 05/08/21 MP=982 HDL=38 WX=064 CPZ=523 TC/HDL=6.4 TCYNAJ=126 08/07/21 EJ=158 HDL=20 GV=089 KPA=497 TC/HDL=13.6 TBIAGZ=309 09/28/21 LB=772 HDL=46 KC=336 BKH=638 TC/HDL=4 UCSRCK=644 12/02/21 AA=951 HDL=44 CL=392 LAG=007 TC/HDL=6 RIVCBT=268 Atorvastatin 40mg daily. Continues to lose weight. [...] & Plan (11/10/2021 5:51 PM CDT): 09/03/20 MQ=721 HDL=55 IS=048 HNY=521 TC/HDL=5.0 DZUFKM=031 04/23/21 BX=370 HDL=41 YT=777 SNK=991 TC/HDL=6 OIHFFF=544 T=364 05/08/21 DE=882 HDL=38 DG=991 ZAF=306 TC/HDL=6.4 LQMFBV=097 08/07/21 HP=976 HDL=20 YS=128 FOC=107 TC/HDL=13.6 OVJDZJ=060 09/28/21 BE=293 HDL=46 TE=717 DJY=585 TC/HDL=4 ZRRVHN=143 Atorvastatin 40mg daily. Has lost 26# on [...] flags. Assessment & Plan (08/07/2021 2:00 PM SKID STRAPPER): atorvastatin 20mg daily. Denies myalgias. 09/03/20 WN=508 HDL=55 LF=539 EBN=070 TC/HDL=5.0 HVJZTX=257 09/19/20 T=251 04/23/21 VJ=570 HDL=41 AN=539 FRI=753 TC/HDL=6 MTUJIG=093 T=364 05/08/21 EA=462 HDL=38 GL=656 KDY=054 TC/HDL=6.4 AGHTTS=769 08/07/21 TT=541 HDL=20 JX=855 XFH=800 TC/HDL=13.6 GZXFPJ=409 Will double atorvastatin from 20mg to 40mg. [...] & Plan (05/08/2021 3:51 PM CDT): 04/16/20 DG=381 HDL=56 LM=739 FFX=445 TC/HDL=5 VWSGCF=718 09/03/20 SI=225 HDL=55 WY=396 UEK=984 TC/HDL=5.0 BUCSYI=983 04/23/21 ON=653 HDL=41 TG=270 ATG=570 TC/HDL=6 GDXKMN=382 T=364 05/08/21 KV=017 HDL=38 ZZ=125 MAY=624 TC/HDL=6.4 RVRBFC=476 Atorvastatin 20mg daily sent. Reviewed med SE & scheduling. Stressed need for diet/activity changes. Discussed healthier options of frozen meals, better snacks. Will recheck lipid panel in 3 mos. Assessment & Plan (02/01/2021 4:00 PM CDT): 04/16/20 OC=241 HDL=56 QT=412 QHE=116 TC/HDL=5 09/03/20 ZP=526 HDL=55 MD=971 SOR=619 TC/HDL=5.0 Lipid panel ordered; will call w/results when received. Reviewed diet/exercise recommendations. Discussed need for statin if TC/LDL remains elevated. Assessment & Plan (02/12/2020 3:55 PM CDT): 09/20/19 ZK=344 HDL=55 TG=77 OBF=982 TC/HDL=4.4 Lipid panel sent to [facility]. Will be going to get labs from [...] 02/19/2022 Assessment & Plan (08/07/2021 1:51 PM SKID STRAPPER): H/o palpitations for many years. Had holter monitor in his 20s. Denies excess caffeine intake. No CP/SOB. holter monitor ordered. Will contact w/results once rec'd. Acute nasopharyngitis 08/07/20212021 Assessment & Plan (08/07/2021 1:58 PM SKID STRAPPER): Discussed otc mucinex plain & coricidin HBP. Discussed saline rinse. Will call if no improvement in 1 week w/otc medications. Class 2 severe obesity due t o excess calories with serious comorbidity and body mass index (BMI) of 37.0 to 37.9 in adult 05/08/2021 2 Assessment & Plan (08/07/2021 1:19 PM SKID STRAPPER): Reviewed need to lose weight, reviewed health benefits. Reviewed recommendations for daily intake & activity 20-30 minutes/day. Discussed healthy diet and importance of regular physical activity. Assessment & Plan (05/08/2021 3:48 PM CDT): Reviewed need to lose weight, reviewed health benefits. Reviewed recommendations for daily intake & activity 20-30 minutes/day. Discussed healthy diet and importance of regular physical activity. Has gym membership at [employer]; not using currently. Subareolar lump of left breast 02/01/2021 02/19/2022 Assessment & Plan (02/01/2021 4:15 PM CDT): L breast US ordered. Aware to call [facility] to schedule. Contact info given. Will contact w/results once rec'd. Aware to check his [employer] account for results. Hypogonadism male 01/30/2021 05/08/2021 [...] importance of regular physical activity. Has started [employer] service. 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 [...] cessation. Discussed different types of medications & cztf-myg-vfpuvkd aides to help with cessation. Assessment & Plan (02/12/2020 3:56 PM CDT): Precontemplative. Encouraged complete smoking cessation. Discussed different types of medications & yddd-rxn-yladtuo aides to help with cessation. Assessment & Plan (09/22/2019 1:53 PM SKID STRAPPER): Precontemplative. Encouraged complete smoking cessation. Discussed different types of medications & kmnz-nlp-zoovown aides to help with cessation. Encounter for screening for lipoid disorders 0 12/05/2020 Assessment & Plan (09/22/2019 1:51 PM SKID STRAPPER): 09/20/19 YP=145 HDL=55 TG=77 ZMN=696 TC/HDL=4.4. Copy of results & written explanation/parameters given to Mr Marcelo. Need to greatly improve diet; LDL & cholesterol high. Labs given to repeat lipid panel in 3 mos. BMI 33.0-33.9,adult 09/20/2019 02/12/20 Assessment & Plan (09/22/2019 1:51 PM SKID STRAPPER): Reviewed need to lose weight, reviewed health benefits. Reviewed recommendations for daily intake & activity 20-30 minutes/day. Discussed healthy diet and importance of regular physical activity. Bronchitis 09/20/2019 12/05/2020 Assessment & Plan (09/22/2019 1:52 PM SKID STRAPPER): Zpack & medrol dose pack sent. To p/u expectorant (ie mucinex) and antihistamine (ie pat/claritin/zyrtec). Reviewed med Ses & scheduling. Aware to complete antibiotic & medrol. Reviewed red flags; what would warrant rtc or ED for further eval. Push fluids. Stressed need to STOP smoking. Sore throat 09/20/2019 12/05/2020 Assessment & Plan (09/22/2019 1:53 PM SKID STRAPPER): NEG for strep at office. Gargle with [...] 09/22/2019 Assessment & Plan (08/27/2019 1:37 PM SKID STRAPPER): Well controlled with current medication Assessment & Plan (07/25/2019 11:49 AM SKID STRAPPER): Stable on current medication. Will continue current prescribed therapy. Encounters Date Type Department Care Team Description 01/15/2025 1:45 PM CDT - 01/15/2025 2:00 PM CDT Surgery [facility] Digestive [facility] [address] [place] [address] Shital Luis MD ESOPHAGOGASTRODUODENOSCOPY 01/15/2025 1:00 PM CDT Anesthesia Event [facility] [address] [place] [address] Camryn Palomo MD 01/13/2025 2:59 AM CDT - 01/15/2025 3:25 PM CDT Hospital Encounter [facility] Acute Medicine [address] [place] [address] Aydin Chaudhary MD [facility], MD Anca Stevenson Jelena, MD Sargsyan, Narine, MD Hematemesis with nausea (Primary Dx); Alcohol use disorder; BLAS (acute kidney injury); Gastroesophageal reflux disease, unspecified whether esophagitis present Discharge Disposition: Discharge to home or self care 01/13/2025 Documentation [facility] Warm Hand Off Program [address] [place] [address] Laura Leon from Last 3 Months Immunizations Immunization Administration Dates Next Due Influenza [...] 02/16/2022(D eferred: Patient Refused) Tdap 03/31/2017, 7,03/31/2017,03/31 Surgical History Surgery Date Site/Laterality Comments BACK SURGERY Medical History Medical History Date Comments Hypertension Enlarged heart Anxiety Community acquired pneumonia 04/24/2018 Family History Medical History Relation Name Comments Colon cancer Mother Radha Sales Hypertension Mother Radha Sales Thyroid disease Mother Radha Sales Relation Name Status Comments Father Alive Mother Radha Sales Alive Social History Tobacco Use Types Packs/Day [...] on file Legal Sex Male 3:02 AM SKID STRAPPER Gender Identity Male 01/19/2022 9:29 PM CDT Sexual Orientation Straight 01/19/2022 9: 29 PM CDT Obstetrics History Last Filed Vital Signs Vital Sign Reading [...] 01/13/2025 8:00 AM CDT Plan of Treatment Health Maintenance Due Date Last Done Comments Hepatitis C Screening 1985 Hepatitis B Screening 2001 Pneumococcal vaccine <65 (1 of 2 - PCV) 2002 Influenza Vaccine (#1) 2025 07/19/2006 Depression Screening 09/28/2025 09/28/2024, 12/23/2023, 02/11/2023, Additional history exists Regular Well Visit/Exam 18-64 09/28/2025 09/28/2024 DTaP/Tdap/Td Vaccine (5 - Td or Tdap) 03/31/2027 03/31/2017, 03/31/2017, 03/31/2017, Additional history exists HPV Vaccines Aged Out No longer eligi ble based on patient's age to complete this topic Varicella Vaccines Discontinued Procedures Procedure Name Priority Date/Time Associated Diagnosis [...] Luis MD - 01/15/2025 12:[address] [facility] Patient Name: Roberth Marcelo Procedure Date: 01/15/2025 12:16 PM Date of : 1985 Admit Type: Inpatient Age: 39 Gender: Male Attending MD: Shital Luis M.D. Room: [facility] ENDOSCOPY ROOM 1 Note Status: Finalized Patient Profile: This is a 39 year old male. Patient admitted with nausea vomiting. Noted the steatohepatitis likelyset alcohol use. History of alcohol overdose. Procedure: Upper GI endoscopy Indications: Hematemesis Referring MD: Ernesto De La Rosa M.D. Providers: Shital Luis M.D. Impression: - Small hiatal hernia. - Sizf-yn-jlbjspum erosive esophagitis. - No specimens collected. Recommendation: - Use Protonix (pantoprazole) 40 mg PO BID for 3 months then once daily for 6 months. - Follow an antireflux regimen. Avoid alcohol use.Use lydj-zyg-nzxxzda antacid medications as needed. - Reglan 10 [...] passed under direct vision. The Endoscope [id number] was introduced through the mouth, and advanced [...] cm from the incisors. Electronically signed by Shital Luis M.D. Shital Luis M.D. 01/15/2025 1:31:48 PM Number of Addenda: 0 Note Initiated On: 01/15/2025 12:16 PM Procedure Code(s): --- Professional --- 32968, Esophagogastroduodenoscopy, flexible, transoral; diagnostic, including collection of specimen(s) by brushing or washing, when performed (separate procedure) Diagnosis Code(s): --- Professional --- K44.9, Diaphragmatic hernia without obstruction or gangrene K92.0, Hematemesis K21.00, Gastro-esophageal reflux disease with esophagitis, without bleeding CPT copyright 2020 [employer]. All rights reserved. The codes documented in this report are preliminary and upon harbor patrol police reviewmay be revised to meet current compliance requirements. Recognized by the [employer] for promoting quality in endoscopy us Shital Luis MD ENDOSCOPY PROCEDURES Final Result [...] MD LAB BLOOD ORDERABLES Final Res ult [facility] 1 [facility] Department [place] [address] * Differential, auto (01/15/2025 3:57 AM CDT) Pathologist [facility] Neutrophil abs 4.09 1.50 - 6.50 K/cumm Imm gran abs 0.02 0.00 - 0.10 K/cumm [facility] ([place]) Lymphocyte abs 2.71 0.80 - 3.30 K/cumm [facility] ([place]) Monocyte abs 0.44 0.20 - 0.80 K/cumm [facility] ([place]) Eosinophil abs 0.07 0.00 - 0.50 K/cumm [facility] ([place]) Basophil abs 0.05 0.00 - 0.10 K/cumm [facility] ([place]) Neutrophil pct 55.4 % [facility] ([place]) Comment: Interpretive Data Percent cell count reference ranges are not reported, since discordance with absolute values may lead to misinterpretation of CBC data. Current Interpretive Data was last revised on 2017. Imm gran pct 0.3 % [facility] ([place]) Comment: Interpretive Data Percent cell count reference ranges are not reported, since discordance with absolute values may lead to misinterpretation of CBC data. Current Interpretive Data was last revised on 2017. Lymphocyte pct 36.7 % [facility] ([place]) Comment: Interpretive Data Percent cell count reference ranges are not reported, since discordance with absolute values may lead to misinterpretation of CBC data. Current Interpretive Data was last revised on 2017. Monocyte pct 6.0 % [facility] ([place]) Comment: Interpretive Data Percent cell count reference ranges are not reported, since discordance with absolute values may lead to misinterpretation of CBC data. Current Interpretive Data was last revised on 2017. Eosinophil pct 0.9 % [facility] ([place] Comment: Interpretive Data Percent cell count reference ranges are not reported, since discordance with absolute values may lead to misinterpretation of CBC data. Current Interpretive Data was last revised on 2017. Basophil pct 0.7 % [facility] ([place]) Comment: Interpretive Data Percent cell count reference ranges are not reported, since discordance with absolute values may lead to misinterpretation of CBC data. Current Interpretive Data was last revised on 2017. Blood 01/15/2025 3:57 AM CDT 01/15/2025 5:31 AM CDT us Tiffanie March MD LAB BLOOD ORDERABLES Final Res ult [facility] ([place]) 1 [facility] Department [place] [address] * (ABNORMAL) CBC with auto differential (01/15/2025 3:57 AM CDT) WBC 7.38 3.80 - 9.90 K/cumm Hgb 13.8 13.0 - 17.5 g/dL [facility] ([place]) Hct 39.0 38.9 - 50.3 % [facility] ([place]) Plt 185 150 - 400 K/cumm [facility] ([place]) MPV 10.4 9.1 - 12.3 fL [facility] ([place]) RBC 4.07(L) 4.30 - 5.80 M/cumm [facility] ([place]) MCV 95.8 81.3 - 96.4 fL [facility] ([place]) MCH 33.9(H) 27.1 - 33.3 pg [facility] ([place]) MCHC 35.4 32.3 - 35.7 g/dL [facility] ([place]) RDW CV 13.1 11.1 - 14.9 % [facility] ([place]) RDW SD 45.9 35.7 - 48.1 fL [facility] ([place]) NRBC abs 0.00 0.00 - 0.01 K/cumm [facility] ([place]) Blood 01/15/2025 3:57 AM CDT 01/15/2025 5:31 AM CDT Shital Luis MD LAB BLOOD ORDERABLES Final Result [facility] 1 [facility] Department of Laboratories [place], [place] [id number] * Comprehensive metabolic panel (01/15/2025 3:57 AM CDT) Sodium 139 135 - 145 mmol/L Potassium, pl 3.6 3.3 - 4.9 mmol/L [facility] ([place]) Chloride 100 97 - 110 mmol/L [facility] ([place] CO2 25 22 - 32 mmol/L [facility] ([place]) Anion gap 14 2 - 15 mmol/L [facility] ([place]) BUN 10 6 - 25 mg/dL [facility] ([place]) Creatinine 1.03 0.80 - 1.30 mg/dL [facility] ([place]) Comment:Icteric sample, test results may be affected. Glucose 99 70 - 199 mg/dL [facility] ([place]) Comment: Interpretive Data Fasting glucose [...] 3:57 AM CDT 01/15/2025 5:32 AM CDT Shital Luis MD LAB BLOOD ORDERABLES Final Result [facility] ([place]) 1 [facility] Department [place] [address] * eGFR (01/14/2025 8:59 AM CDT) eGFR [...] MD LAB BLOOD ORDERABLES Final Res ult [facility] ([place]) 1 [facility] Department [place] [address] * Comprehensive metabolic panel (01/14/2025 8:59 AM [...] [facility] [place] [address] * eGFR (01/14/2025 3:58 AM CDT) eGFR [...] of Race in Diagnosing Kidney Disease, JASN 202). The CKD-EPI equation should not be used for patients with unstable renal function and has not been validated in children and those over 70. Current interpretive data was last reviewed 2021. Blood 01/14/2025 3:58 AM CDT 01/14/2025 5:55 AM CDT us Tiffanie March MD LAB BLOOD ORDERABLES Final Res ult [facility] ([place]) 1 [facility] Department [place] [address] * (ABNORMAL) Basic metabolic panel (01/14/2025 3:58 AM CDT) Sodium 138 135 - 145 mmol/L Potassium, pl 3.8 3.3 - 4.9 mmol/L [facility] ([place]) Chloride 99 97 - 110 mmol/L [facility] ([place]) CO2 22 22 - 32 mmol/L [facility] ([place]) Anion gap 16(H) 2 - 15 mmol/L [facility] ([place]) BUN 12 6 - 25 mg/dL [facility] ([place]) Creatinine 1.14 0.80 - 1.30 mg/dL [facility] ([place]) Glucose 89 70 - 199 mg/dL [facility] ([place]) Comment: Interpretive Data Fasting glucose [...] 2022. Calcium 8.8 8.5 - 10.3 mg/dL [facility] Blood 01/14/2025 3:58 AM CDT 01/14/2025 5:55 AM CDT us Tiffanie March MD LAB BLOOD ORDERABLES Final Res ult [facility] ([place]) 1 [facility] Department of [employer] [place] [address] * (ABNORMAL) Hemoglobin and hematocrit (01/14/2025 3:54 AM CDT) Hgb 13.4 13.0 - 17.5 g/dL Hct 37.8(L) 38.9 - 50.3 % [facility] ([place]) Blood 01/14/2025 3:54 AM CDT 01/14/2025 4:43 AM CDT us Tiffanie March MD LAB BLOOD ORDERABLES Final Res ult Performing Organization Address City/[facility]/ZIP Co de Phone Number [facility] ([place]) 1 [facility] [place] [address] * ABO / Rh Confirmation Testing (01/13/2025 11:59 AM CDT) ABO/Rh Confirmation O Positive [facility] Blood 01/13/2025 11:5 9 AM CDT 01/13/2025 12:03 PM CDT us Aydin Chaudhary MD LAB BLOOD ORDERABLES Final Re sult Performing Organization Address [facility] Co de Phone Number [facility] ([place] 1 [facility] [employer] [place] [address] [facility] * Hemoglobin and hematocrit (01/13/2025 11:59 AM CDT) Hgb 13.6 13.0 - 17.5 g/dL Hct 39.1 38.9 - 50.3 % [facility] ([place]) Blood 01/13/2025 11:5 9 AM CDT 01/13/2025 12:03 PM CDT us Prabhjot Taveras MD LAB BLOOD ORDERABLES Fi nal Result Performing Organization Address [facility]/ZIP Co de Phone Number [facility] ([place] 1 [facility] [place] [address] * CT Abdomen Pelvis WO Contrast (01/13/2025 [...] by Lilian Aly M.D. SN: Report ID: [id number] Reading Location: [id number] Procedure Note Lilian Aly MD - 01/13/2025 [...] by Lilian Aly M.D. SN: Report ID: [id number] Reading Location: [id number] us Aydin Chaudhary MD IMG CT PROCEDURES [...] Lilian Aly M.D. SN: SN Report ID: [id number] Reading Location: [id number] Procedure Note Lilian lAy MD - 01/13/2025 EXAM DESCRIPTION: XR CHEST [...] Lilian Aly M.D. SN: SN Report ID: [id number] Reading Location: [id number] Aydin Chaudhary MD IMG XR PROCEDURES Final [...] tendency for uric acid stone formation. Source: [facility] Current Interpretive Data was last revised on [...] [facility] [place] [address] * (ABNORMAL) Drugs of Abuse Screen, Urine [...] 2023. Opiates, ur Not Detected CutOff 300ng/mL [facility] ([place]) Comment: Interpretive Data - Opiates: Samples containing greater than 300 ng/mL morphine or other cross-reacting compounds are reported as positive. False positive and false negative results are possible. Confirmatory testing required for definitive results. Current Interpretive Data was last reviewed 2023. Oxycodone, ur Not Detected CutOff 100ng/mL [facility] ([place]) Comment: Interpretive Data - Oxycodone: Samples containing greater than 100 ng/mL oxycodone or other cross-reacting compounds are reported as positive. False positive and false negative results are possible. Confirmatory testing required for definitive results. Current Interpretive Data was last reviewed 2023. Phencyclidine, ur Not Detected CutOff 25 ng/mL [facility] ([place]) Comment: Interpretive Data - Phencyclidine: Samples containing greater than 25 ng/mL phencyclidine or other cross-reacting compounds are reported as positive. False positive and false negative results are possible. Confirmatory testing required for definitive results. Current Interpretive Data was last reviewed 2023. Urine Creatinine 76 mg/dL [facility] ([place]) Comment: Interpretive Data Urine Creatinine: < 10 mg/dL is extremely dilute = or > 10 but < 20 mg/dL is dilute = or > 20 mg/dL is normal Current Interpretive Data was last revised on 2017. Urine 01/13/2025 3:37 AM CDT 01/13/2025 3:43 AM CDT Narrative [facility] ([place]) - 01/13/2025 4:01 AM CDT Drug of Abuse screening is performed by immunoassay for medical purposes only. This is not to be used for Pain Management purposes. us Aydin Chaudhary MD LAB URINE ORDERABLES Final Re sult [facility] ([place]) 1 [facility] Department [place] [address] * Osmolality, urine (01/13/2025 3:37 AM CDT) Osmo, ur 355 mOsm/kg Comment:Testing performed by : [facility], [address] [place] [address]., [id number] Urine 01/13/2025 3:37 AM CDT 01/13/2025 2:00 PM CDT Aydin Chaudhary MD LAB URINE ORDERABLES Final Re sult Performing Organization Address City/[facility] Co de Phone Number [facility] ([place]) [address] [place] [address] [employer] [place] [address] * (ABNORMAL) Osmolality, blood (01/13/2025 3:37 AM CDT) Osmo 384(C) 275 - 300 mOsm/kg Comment: reviewed Testing performed by: [facility], [address] [place] [address]., [id number] Blood 01/13/2025 3:37 AM CDT 01/13/2025 2:01 PM CDT us Aydin Chaudhary MD LAB BLOOD ORDERABLES Final Re sult Performing Organization Address [facility] Co de Phone Number [facility] ([place]) [address] [place] [address] [employer] [place] [address] * Lipase (01/13/2025 3:37 AM CDT) Lipase 26 10 - 99 Units/L Blood 01/13/2025 3:37 AM CDT 01/13/2025 5:25 AM CDT Aydin Chaudhary MD LAB BLOOD ORDERABLES Final Re sult Performing Organization Address City/[facility] Co de Phone Number [facility] ([place]) [address] [place] [address] [employer] [place] [address] * (ABNORMAL) eGFR (01/13/2025 2:57 AM CDT) [...] MD LAB BLOOD ORDERABLES Final Re sult [facility] ([place]) 1 [facility] Department [place] [address] * (ABNORMAL) Differential, auto (01/13/2025 2:57 AM CDT) Neutrophil abs 4.31 1.50 - 6.50 K/cumm Imm gran abs 0.02 0.00 - 0.10 K/cumm [facility] ([place]) Lymphocyte abs 4.29(H) 0.80 - 3.30 K/cumm [facility] ([place]) Monocyte abs 0.59 0.20 - 0.80 K/cumm [facility] ([place]) Eosinophil abs 0.13 0.00 - 0.50 K/cumm [facility] ([place]) Basophil abs 0.10 0.00 - 0.10 K/cumm [facility] ([place]) Neutrophil pct 45.6 % [facility] ([place]) Comment: Interpretive Data Percent cell count reference ranges are not reported, since discordance with absolute values may lead to misinterpretation of CBC data. Current Interpretive Data was last revised on 2017. Imm gran pct 0.2 % [facility] ([place]) Comment: Interpretive Data Percent cell count reference ranges are not reported, since discordance with absolute values may lead to misinterpretation of CBC data. Current Interpretive Data was last revised on 2017. Lymphocyte pct 45.4 % [facility] ([place]) Comment: Interpretive Data Percent cell count reference ranges are not reported, since discordance with absolute values may lead to misinterpretation of CBC data. Current Interpretive Data was last revised on 2017. Monocyte pct 6.3 % [facility] ([place]) Comment: Interpretive Data Percent cell count reference ranges are not reported, since discordance with absolute values may lead to misinterpretation of CBC data. Current Interpretive Data was last revised on 2017. Eosinophil pct 1.4 % [facility] ([place]) Comment: Interpretive Data Percent cell count reference ranges are not reported, since discordance with absolute values may lead to misinterpretation of CBC data. Current Interpretive Data was last revised on 2017. Basophil pct 1.1 % [facility] ([place]) Comment: Interpretive Data Percent cell count reference ranges are not reported, since discordance with absolute values may lead to misinterpretation of CBC data. Current Interpretive Data was last revised on 2017. Blood 01/13/2025 2:57 AM CDT 01/13/2025 3:08 AM CDT us Aydin Chaudhary MD LAB BLOOD ORDERABLES Final Re sult [facility] ([place]) 1 [facility] Department [place] [address] * (ABNORMAL) CBC with auto differential (01/13/2025 2:57 AM CDT) WBC 9.44 3.80 - 9.90 K/cumm Hgb 15.4 13.0 - 17.5 g/dL [facility] ([place]) Hct 43.9 38.9 - 50.3 % [facility] ([place]) Plt 273 150 - 400 K/cumm [facility] ([place]) MPV 9.4 9.1 - 12.3 fL [facility] ([place]) RBC 4.57 4.30 - 5.80 M/cumm [facility] ([place]) MCV 96.1 81.3 - 96.4 fL [facility] ([place]) MCH 33.7(H) 27.1 - 33.3 pg [facility] ([place]) MCHC 35.1 32.3 - 35.7 g/dL [facility] ([place]) RDW CV 13.6 11.1 - 14.9 % [facility] ([place] RDW SD 48.1 35.7 - 48.1 fL [facility] ([place]) NRBC abs 0.00 0.00 - 0.01 K/cumm [facility] ([place]) Blood Venous blood specimen / Unknown 01/13/2025 2:57 AM CDT 01/13/2025 3:08 AM CDT us Aydin Chaudhary MD LAB BLOOD ORDERABLES Final Re sult [facility] ([place]) 1 [facility] [place] [address] * ABO/Rh (01/13/2025 2:57 AM CDT) ABO/Rh O Positive Blood 01/13/2025 2:57 AM CDT 01/13/2025 3:18 AM CDT Narrative [facility] ([place]) - 01/13/2025 3:47 AM CDT Has the patient had Daratumumab or Isatuximab in the past 6 months?->Unknown us Aydin Chaudhary MD LAB BLOOD BANK TEST ORDERABLE S Final Result [facility] ([place]) 1 [facility] [place] [address] * aPTT (01/13/2025 2:57 AM CDT) aPTT 33 28 - 38 sec [facility] ([place] Comment: Interpretive Data Heparin therapeutic range: 66.0 - 100.0 seconds. Range based on correlation with therapeutic heparin activity range of 0.3 - 0.7 Units/mL. Current interpretive data was last revised on 2023. Blood 01/13/2025 2:57 AM CDT 01/13/2025 3:18 AM CDT Aydin Chaudhary MD LAB BLOOD ORDERABLES Final Re sult [facility] ([place] 1 [facility] [place] [address] * Protime-INR (01/13/2025 2:57 AM CDT) PT 11.3 9.7 - 13.0 sec [facility] ([place] INR 1.05 0.90 - 1.20 [facility] ([place] Comment: Interpretive data Oral anticoagulant therapeutic ranges: Venous thromboembolism prophylaxis or treatment: 2.0-3.0 CARDIOLOGY Standard range: 2.0-3.0 High-intensity range: 2.5-3.5 Refer to indication-specific guidelines for appropriate target ranges for prosthetic heart valve replacement. Current interpretive data was last revised on 2019. Blood 01/13/2025 2:57 AM CDT 01/13/2025 3:18 AM CDT Aydin Chaudhary MD LAB BLOOD ORDERABLES Final Re sult [facility] ([place] 1 [facility] [place] [address] * Antibody screen (01/13/2025 2:57 AM CDT) Twin, indirect, Gel Interpretation Negative ABSC Blood 01/13/2025 2:57 AM CDT 01/13/2025 3:18 AM CDT Narrative [facility] ([place]) - 01/13/2025 4:20 AM CDT Has the patient had Daratumumab or Isatuximab in the past 6 months?->Unknown us Aydin Chaudhary MD LAB BLOOD BANK TEST ORDERABLE S Final Result Performing Organization Address [facility] Co de Phone Number [facility] ([place]) 1 [place] [address] * (ABNORMAL) Ethanol (01/13/2025 2:57 AM CDT) Ethanol 329(C) <=10 mg/dL Comment: Critical Result called by [id number] at 2025-01-13 04:11:29. Result Read Back by Fadumo Anaya ED Interpretive Data Legal limit of intoxication > or = 80 mg/dL Levels > or = 400 mg/dL are potentially TOXIC. Current interpretive data was last revised on 2018. Blood 01/13/2025 2:57 AM CDT 01/13/2025 3:50 AM CDT us Aydin Chaudhary MD LAB BLOOD ORDERABLES Final Re sult Performing Organization Address [facility] Co de Phone Number [facility] ([place]) 1 [place] [address] * (ABNORMAL) Comprehensive metabolic panel (01/13/2025 2:57 AM CDT) Sodium 144 135 - 145 mmol/L Potassium, pl 4.2 3.3 - 4.9 mmol/L [facility] ([place]) Chloride 103 97 - 110 mmol/L [facility] [place]) CO2 28 22 - 32 mmol/L [facility] ([place]) Anion gap 14 2 - 15 mmol/L [facility] ([place]) BUN 17 6 - 25 mg/dL [facility] ([place]) Creatinine 1.61(H) 0.80 - 1.30 mg/dL [facility] ([place]) Glucose 128 70 - 199 mg/dL [facility] ([place]) Comment: Interpretive Data Fasting glucose [...] [facility] [place] [address] from Last 3 Months Insurance [facility] Advance Directives For more information, please contact: [phone] * Full Code (Latest Code Status on File) Date Activated Date Inactivated Comments 01/15/2025 12:06 PM 01/15/2025 7:30 PM * Full Code Date Activated Date Inactivated Comments 01/13/2025 6:19 AM 01/15/2025 12:06 PM Care Teams Statement Clerks Manager Relationship Specialty Start Date End Date Ernesto [place] [address] PCP - General Family Medicine 09/20/19
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
== END 2025-03-20 18:05 | disposition short-term general hospital (02) ==
PROVIDERS: Emergency Provider Nurse Practitioner Family; PCP Family Medicine
DX: R00.2 Palpitations (principal); Z87.891 Personal history of nicotine dependence; I10 Essential (primary) hypertension; K21.9 Gastro-esophageal reflux disease without esophagitis; E78.00 Pure hypercholesterolemia, unspecified
CPT/HCPCS: 93005; 99213; G0463

== ENCOUNTER 2025-03-20 19:11 | Emergency (ER) | payer OTHER, SELFPAY ==
--- NOTE | ~2025-03-20 | CT_ITS ---
EXAMINATION: CT abdomen pelvis w con DATE: 03/21/2025 04:56 INDICATION: Left lower quadrant pain. History of diverticulosis. TECHNIQUE: Computed tomography (CT) of the abdomen and pelvis was performed without intravenous contr ast. The dose-length product was 1630.59 mGy-cm. Automated exposure control and iterative reconstruct ion technique were employed. COMPARISON: None. FINDINGS: Lung bases unremarkable. No significant pleural or pericardial effusion. Heart size normal. Fatty infiltration of the liver. The spleen, pancreas, adrenal glands and kidneys are unremarkable. Gallbladder is present. Nonobstructive bowel gas pattern. Small fat-containing left inguinal hernia. No free air or free fluid. No significant vascular abnormality. No acute osseous abnormality. IMPRESSION: 1. No acute abdominal abnormality. 2: Fatty infiltration of the liver. Reviewed, dictated and finalized at location A.
--- OUTSIDE RECORDS SUMMARY | 2025-03-20 19:13 | XMS_ITS | Clinical Summary ---
Author Organization [facility] Address [address] [place] [address] Care Team Providers Care Sweet Dough Mixer Name Role Phone Unavailable Primary Care Provider [...]
--- OUTSIDE RECORDS SUMMARY | 2025-03-20 19:13 | XMS_ITS | Referral Summary ---
Author Organization [facility] Address [address] [place] [address] Care Team Providers Care Label Stitcher Name Role Phone Ernesto De La Rosa MD Primary Care Provider [phone] Encounters Date Type Department Care Team Description 01/15/2025 1:00 PM CDT Anesthesia Event [facility] 1 [place] [address] Camryn Palomo MD 01/15/2025 1:45 PM CDT - 01/15/2025 2:00 PM CDT Surgery [facility] 1 [place] [address] Shital Luis MD ESOPHAGOGASTRODUODENOSCOPY 01/13/2025 2:59 AM CDT - 01/15/2025 3:25 PM CDT Hospital Encounter [facility] Acute Medicine 1 [place] [address] Aydin Chaudhary MD Petters, MD Anca Stevenson Jelena, MD Sargsyan, Narine, MD Hematemesis with nausea (Primary Dx); Alcohol use disorder; BLAS (acute kidney injury); Gastroesophageal reflux disease, unspecified whether esophagitis present Discharge Disposition: Discharge to home or self care 01/13/2025 Documentation [facility] Warm Hand Off Program 1 [place], [place] [phone] Laura Leon from Last 3 Months Allergies [...] 02/16/2022 Assessment & Plan (09/28/2024 4:09 PM WIRE ROPE FABRICATION SUPERVISOR): Encouraged heart healthy diet and lifestyle. Advised 150 min/week of aerobic exercise. Assessment & Plan (11/04/2022 2:40 PM WIRE ROPE FABRICATION SUPERVISOR): Discussed healthy diet and importance of regular [...] High 26 R Comment: Testing performed by: [facility], [address] [place] [address], [place]., [address] AST 10 - 50 Units/L 148 High 78 High CM 124 High 71 High LFTs elevated last 3 draws. Will recheck. Discussed possible statin change. Discussed avoiding tylenol & alcohol as he is able. Refused pneumococcal vaccination 02/16/2022 Hypogonadism in male 01/30/2021 Assessment & Plan (09/28/2024 4:12 PM WIRE ROPE FABRICATION SUPERVISOR): Stable and well controlled. Will continue with testosterone and monitoring Assessment & Plan (05/12/2023 2:06 PM CDT): Continue testosterone 100 mg weekly Assessment & Plan (11/04/2022 2:41 PM WIRE ROPE FABRICATION SUPERVISOR): Has been out of medication for the [...] 10/27/21 Assessment & Plan (08/07/2021 1:18 PM WIRE ROPE FABRICATION SUPERVISOR): 04/23/21 t=364, had been 251 08/2021. Continues [...] 09/19/2019 Assessment & Plan (09/28/2024 4:12 PM WIRE ROPE FABRICATION SUPERVISOR): Stable and well controlled. Will continue on Klonopin and monitoring. Assessment & Plan (11/04/2022 2:48 PM WIRE ROPE FABRICATION SUPERVISOR): Taking clonazepam p.r.n. with good response. Assessment [...] flags. Assessment & Plan (08/07/2021 1:20 PM WIRE ROPE FABRICATION SUPERVISOR): Clonazepam 0.5mg tid prn #90 refilled 07/06/21. [...] 07/25/2019 Assessment & Plan (09/28/2024 4:09 PM WIRE ROPE FABRICATION SUPERVISOR): Blood pressure stable and well controlled. Will continue on Labetalol and Losartan. Assessment & Plan (05/12/2023 2:05 PM CDT): Blood pressure showing improvement, no changes made today. Assessment & Plan (11/04/2022 2:48 PM WIRE ROPE FABRICATION SUPERVISOR): Blood pressure is not well controlled today, [...] received. Assessment & Plan (08/07/2021 1:21 PM WIRE ROPE FABRICATION SUPERVISOR): Losartan 100mg daily, labetalol 200mg bid. The [...] BP Assessment & Plan (10/25/2019 11:56 AM WIRE ROPE FABRICATION SUPERVISOR): Elevation today likely due to increasing anxiety Assessment & Plan (09/22/2019 1:53 PM WIRE ROPE FABRICATION SUPERVISOR): Will continue amlodipine 10mg daily. Will increase losartan from 50mg to 100mg daily. To check BP/log at home. Referral entered to [facility] by Blayne Plascencia NP at appt last week. (appt w/Dr Mendez 10/10/19) To take BP log to that appt once set. rtc in 1 mo if unable to get into [facility] prior to then for BP recheck. Ideally [...] received. Assessment & Plan (08/27/2019 1:34 PM WIRE ROPE FABRICATION SUPERVISOR): Will place cardiology referral. He is not responding well to losartan or amlodipine nor has he responded well to the medications in the past. Advised to report to the ER for chest pain shortness of breath or any distress. Assessment & Plan (07/25/2019 11:49 AM WIRE ROPE FABRICATION SUPERVISOR): He has not used his medication in over 2 months due to being out not been able to afford it. Will restart medication at current dosages and follow up in 30 days Annual physical exam 07/25/2019 Assessment & Plan (09/28/2024 4:13 PM WIRE ROPE FABRICATION SUPERVISOR): In regard to health maintenance, Colonoscopy- scheduled [...] healthier, we can set up appointment with information technology architect/newspaper delivery driver. Have an active lifestyle, strive for 30 [...] man. Assessment & Plan (07/25/2019 11:48 AM WIRE ROPE FABRICATION SUPERVISOR): Patient is without insurance at this time. [...] vulnerable. Assessment & Plan (08/07/2021 1:21 PM WIRE ROPE FABRICATION SUPERVISOR): Discussed and the patient refuses immunization today. Educated regarding the need to vaccinate for personal protection and to limit the viruses in the community to protect those most vulnerable. Assessment & Plan (09/22/2019 1:48 PM WIRE ROPE FABRICATION SUPERVISOR): Discussed and the patient refuses immunization today. Educated regarding the need to vaccinate for personal protection and to limit the viruses in the community to protect those most vulnerable. Gastroesophageal reflux disease 04/24/2018 Assessment & Plan (09/28/2024 4:16 PM WIRE ROPE FABRICATION SUPERVISOR): Stable and well controlled. Omeprazole will continue and monitor Hyperlipidemia 04/24/2018 Assessment & Plan (09/28/2024 4:11 PM WIRE ROPE FABRICATION SUPERVISOR): LDL greatly improved and almost at goal at <70. Will continue on Atorvastatin. Will continue to monitor. Assessment & Plan (05/28/2024 4:22 PM CDT): Encourage compliance with atorvastin. Reviewed lifestyle recommendations Assessment & Plan (05/12/2023 2:06 PM CDT): Encouraged patient to take atorvastatin 40 mg daily. Assessment & Plan (11/04/2022 2:46 PM WIRE ROPE FABRICATION SUPERVISOR): Patient is not currently taking atorvastatin. Will check labs today. Patient encouraged to take daily. Reviewed cardiovascular risk. Assessment & Plan (02/19/2022 11:07 AM CDT): 09/03/20 AJ=381 HDL=55 AU=599 JOQ=908 TC/HDL=5.0 NMMNXR=604 04/23/21 KW=217 HDL=41 BQ=663 VZT=768 TC/HDL=6 TJEKWG=025 T=364 05/08/21 IU=168 HDL=38 ZL=299 QFC=366 TC/HDL=6.4 QFLBXA=828 08/07/21 TO=166 HDL=20 GE=729 XYH=096 TC/HDL=13.6 YEUHZB=922 09/28/21 OV=454 HDL=46 JK=604 VJY=745 TC/HDL=4 SSMJFI=744 12/02/21 PZ=269 HDL=44 QZ=571 SCE=083 TC/HDL=6 JPQKSZ=260 Atorvastatin 40mg daily. Continues to lose weight. [...] & Plan (11/10/2021 5:51 PM CDT): 09/03/20 YF=098 HDL=55 PH=407 SGL=509 TC/HDL=5.0 LPNQHZ=282 04/23/21 GA=122 HDL=41 EL=342 RXT=649 TC/HDL=6 VWACGJ=284 T=364 05/08/21 KU=055 HDL=38 HM=034 IJJ=552 TC/HDL=6.4 UHCCKZ=559 08/07/21 ZV=025 HDL=20 AM=661 FOU=726 TC/HDL=13.6 ZBHNXV=009 09/28/21 ZE=694 HDL=46 NR=715 LAF=677 TC/HDL=4 PWERSH=088 Atorvastatin 40mg daily. Has lost 26# on [...] flags. Assessment & Plan (08/07/2021 2:00 PM WIRE ROPE FABRICATION SUPERVISOR): atorvastatin 20mg daily. Denies myalgias. 09/03/20 KX=426 HDL=55 OD=867 HDR=498 TC/HDL=5.0 OXXWQX=794 09/19/20 T=251 04/23/21 UJ=962 HDL=41 FP=501 BOM=829 TC/HDL=6 YOXWSR=408 T=364 05/08/21 PI=483 HDL=38 ZO=041 QEN=906 TC/HDL=6.4 IRFFZU=839 08/07/21 ND=760 HDL=20 EF=054 VGK=010 TC/HDL=13.6 KAILST=476 Will double atorvastatin from 20mg to 40mg. [...] & Plan (05/08/2021 3:51 PM CDT): 04/16/20 JQ=444 HDL=56 AS=341 MSU=731 TC/HDL=5 LYNTJE=164 09/03/20 KJ=836 HDL=55 EA=770 EIT=622 TC/HDL=5.0 WGVKGG=816 04/23/21 VM=368 HDL=41 DB=930 TPA=712 TC/HDL=6 YXMIRW=615 T=364 05/08/21 VL=190 HDL=38 QS=714 QAF=677 TC/HDL=6.4 BQOAWL=702 Atorvastatin 20mg daily sent. Reviewed med SE & scheduling. Stressed need for diet/activity changes. Discussed healthier options of frozen meals, better snacks. Will recheck lipid panel in 3 mos. Assessment & Plan (02/01/2021 4:00 PM CDT): 04/16/20 DL=930 HDL=56 KQ=408 DZR=500 TC/HDL=5 09/03/20 QM=813 HDL=55 SR=923 XSR=615 TC/HDL=5.0 Lipid panel ordered; will call w/results when received. Reviewed diet/exercise recommendations. Discussed need for statin if TC/LDL remains elevated. Assessment & Plan (02/12/2020 3:55 PM CDT): 09/20/19 CV=355 HDL=55 TG=77 OSM=096 TC/HDL=4.4 Lipid panel sent to [facility]. Will be going to get labs from [...] 02/19/2022 Assessment & Plan (08/07/2021 1:51 PM WIRE ROPE FABRICATION SUPERVISOR): H/o palpitations for many years. Had holter monitor in his 20s. Denies excess caffeine intake. No CP/SOB. holter monitor ordered. Will contact w/results once rec'd. Acute nasopharyngitis 08/07/20212021 Assessment & Plan (08/07/2021 1:58 PM WIRE ROPE FABRICATION SUPERVISOR): Discussed otc mucinex plain & coricidin HBP. Discussed saline rinse. Will call if no improvement in 1 week w/otc medications. Class 2 severe obesity due t o excess calories with serious comorbidity and body mass index (BMI) of 37.0 to 37.9 in adult 05/08/2021 Assessment & Plan (08/07/2021 1:19 PM WIRE ROPE FABRICATION SUPERVISOR): Reviewed need to lose weight, reviewed health benefits. Reviewed recommendations for daily intake & activity 20-30 minutes/day. Discussed healthy diet and importance of regular physical activity. Assessment & Plan (05/08/2021 3:48 PM CDT): Reviewed need to lose weight, reviewed health benefits. Reviewed recommendations for daily intake & activity 20-30 minutes/day. Discussed healthy diet and importance of regular physical activity. Has gym membership at [employer]; not using currently. Subareolar lump of left [...] cessation. Discussed different types of medications & hicv-clz-banvfjq aides to help with cessation. Assessment & Plan (02/12/2020 3:56 PM CDT): Precontemplative. Encouraged complete smoking cessation. Discussed different types of medications & lnxl-puy-uzxakmk aides to help with cessation. Assessment & Plan (09/22/2019 1:53 PM WIRE ROPE FABRICATION SUPERVISOR): Precontemplative. Encouraged complete smoking cessation. Discussed different types of medications & jcjf-gna-gpshikm aides to help with cessation. Encounter for screening for lipoid disorders 0 12/05/2020 Assessment & Plan (09/22/2019 1:51 PM WIRE ROPE FABRICATION SUPERVISOR): 09/20/19 PZ=453 HDL=55 TG=77 EUZ=822 TC/HDL=4.4. Copy of results & written explanation/parameters given to Mr Marcelo. Need to greatly improve diet; LDL & cholesterol high. Labs given to repeat lipid panel in 3 mos. BMI 33.0-33.9,adult 09/20/2019 02/12/20 Assessment & Plan (09/22/2019 1:51 PM WIRE ROPE FABRICATION SUPERVISOR): Reviewed need to lose weight, reviewed health benefits. Reviewed recommendations for daily intake & activity 20-30 minutes/day. Discussed healthy diet and importance of regular physical activity. Bronchitis 09/20/2019 12/05/2020 Assessment & Plan (09/22/2019 1:52 PM WIRE ROPE FABRICATION SUPERVISOR): Zpack & medrol dose pack sent. To p/u expectorant (ie mucinex) and antihistamine (ie pat/claritin/zyrtec). Reviewed med Ses & scheduling. Aware to complete antibiotic & medrol. Reviewed red flags; what would warrant rtc or ED for further eval. Push fluids. Stressed need to STOP smoking. Sore throat 09/20/2019 12/05/2020 Assessment & Plan (09/22/2019 1:53 PM WIRE ROPE FABRICATION SUPERVISOR): NEG for strep at office. Gargle with [...] 09/22/2019 Assessment & Plan (08/27/2019 1:37 PM WIRE ROPE FABRICATION SUPERVISOR): Well controlled with current medication Assessment & Plan (07/25/2019 11:49 AM WIRE ROPE FABRICATION SUPERVISOR): Stable on current medication. Will continue current [...] on file Legal Sex Male 3:02 AM WIRE ROPE FABRICATION SUPERVISOR Gender Identity Male 01/19/2022 9:29 PM CDT [...] Luis MD - 01/15/2025 12:16 PM CDT [facility] Patient Name: Roberth Marcelo Procedure Date: 01/15/2025 12:16 PM Date of : 1985 Admit Type: Inpatient Age: 39 Gender: Male Attending MD: Shital Luis M.D. Room: [facility] ENDOSCOPY ROOM 1 Note Status: Finalized Patient Profile: This is a 39 year old male. Patient admitted with nausea vomiting. Noted the steatohepatitis likelyset alcohol use. History of alcohol overdose. Procedure: Upper GI endoscopy Indications: Hematemesis Referring MD: Ernesto De La Rosa M.D. Providers: Shital Luis M.D. Impression: - Small hiatal hernia. - Dugx-vf-smlkhcix erosive esophagitis. - No specimens collected. Recommendation: - Use Protonix (pantoprazole) 40 mg PO BID for 3 months then once daily for 6 months. - Follow an antireflux regimen. Avoid alcohol use.Use ltut-ige-ayocfzv antacid medications as needed. - Reglan 10 [...] passed under direct vision. The Endoscope GIF-H190 [id number] was introduced through the mouth, and advanced [...] 12:16 PM Procedure Code(s): --- Professional --- 85935, Esophagogastroduodenoscopy, flexible, transoral; diagnostic, including collection of specimen(s) by brushing or washing, when performed (separate procedure) Diagnosis Code(s): --- Professional --- K44.9, Diaphragmatic hernia without obstruction or gangrene K92.0, Hematemesis K21.00, Gastro-esophageal reflux disease with esophagitis, without bleeding CPT copyright 2020 [employer]. All rights reserved. The codes documented in this report are preliminary and upon gasoline locomotive crane operator reviewmay be revised to meet current compliance requirements. Recognized by the [place] [employer] for promoting quality [...] BLOOD ORDERABLES Final Res ult [facility] ([place]) 1 [facility] [place] [address] * Differential, auto (01/15/2025 3:57 AM CDT) Neutrophil abs 4.09 1.50 - 6.50 K/cumm Imm gran abs 0.02 0.00 - 0.10 K/cumm [facility] ([place]) Lymphocyte abs 2.71 0.80 - 3.30 K/cumm [facility] ([place]) Monocyte abs 0.44 0.20 - 0.80 K/cumm [facility] ([place]) Eosinophil abs 0.07 0.00 - 0.50 K/cumm [facility] ([place]) Basophil abs 0.05 0.00 - 0.10 K/cumm [facility] ([place]) Neutrophil pct 55.4 % [facility] ([place]) Comment: Interpretive Data Percent cell count reference ranges are not reported, since discordance with absolute values may lead to misinterpretation of CBC data. Current Interpretive Data was last revised on 2017. Imm gran pct 0.3 % [facility] ([place]) Comment: Interpretive Data Percent cell count reference ranges are not reported, since discordance with absolute values may lead to misinterpretation of CBC data. Current Interpretive Data was last revised on 2017. Lymphocyte pct 36.7 % [facility] ([place]) Comment: Interpretive Data Percent cell count reference ranges are not reported, since discordance with absolute values may lead to misinterpretation of CBC data. Current Interpretive Data was last revised on 2017. Monocyte pct 6.0 % [facility] ([place]) Comment: Interpretive Data Percent cell count reference ranges are not reported, since discordance with absolute values may lead to misinterpretation of CBC data. Current Interpretive Data was last revised on 2017. Eosinophil pct 0.9 % [facility] ([place]) Comment: Interpretive Data Percent cell count reference [...] Final Res ult [facility] ([place]) 1 [facility] Department [place] [address] * (ABNORMAL) CBC with auto differential (01/15/2025 [...] ORDERABLES Final Result [facility] ([place]) 1 [facility] [place] [address] * Comprehensive metabolic panel (01/15/2025 3:57 AM [...] BLOOD ORDERABLES Final Result Performing Organization Address City/[facility]/ZIP Co de Phone Number [facility] ([place] 1 [facility] [place] [address] * eGFR (01/14/2025 8:59 AM CDT) eGFR [...] BLOOD ORDERABLES Final Res ult [facility] ([place]) 1 [facility] [place] [address] * Comprehensive metabolic panel (01/14/2025 8:59 AM [...] ORDERABLES Final Result [facility] ([place]) 1 [facility] Department [place] [address] * eGFR (01/14/2025 3:58 AM CDT) eGFR [...] MD LAB BLOOD ORDERABLES Final Res ult [facility] ([place]) 1 [facility] Department [place] [address] * (ABNORMAL) Basic metabolic panel (01/14/2025 3:58 AM CDT) Sodium 138 135 - 145 mmol/L Potassium, pl 3.8 3.3 - 4.9 mmol/L [facility] ([place]) Chloride 99 97 - 110 mmol/L [facility] ([place] CO2 22 22 - 32 mmol/L [facility] ([place]) Anion gap 16(H) 2 - 15 mmol/L [facility] ([place]) BUN 12 6 - 25 mg/dL [facility] ([place]) Creatinine 1.14 0.80 - 1.30 mg/dL [facility] ([place]) Glucose 89 70 - 199 mg/dL [facility] ([place]) Comment: Interpretive Data Fasting [...] ORDERABLES Final Res ult Performing Organization Address [facility] Co de Phone Number [facility] ([place] 1 [facility] [place] [address] * (ABNORMAL) Hemoglobin and hematocrit (01/14/2025 3:54 AM CDT) Hgb 13.4 13.0 - 17.5 g/dL Hct 37.8(L) 38.9 - 50.3 % [facility] ([place]) Blood 01/14/2025 3:54 AM CDT 01/14/2025 4:43 AM CDT Tiffanie March MD LAB BLOOD ORDERABLES Final Res ult Performing Organization Address [facility]/ZIP Co de Phone Number [facility] ([place] 1 [facility] [place] [place] [address] * ABO / Rh Confirmation Testing (01/13/2025 11:59 AM CDT) ABO/Rh Confirmation O Positive [facility] Blood 01/13/2025 11:5 9 AM CDT 01/13/2025 12:03 PM CDT Aydin Chaudhary MD LAB BLOOD ORDERABLES Final Re sult Performing Organization Address [facility]/ZIP Co de Phone Number [facility] [place]) 1 [facility] Department [place] [address] [facility] * Hemoglobin and hematocrit (01/13/2025 11:59 AM CDT) Hgb 13.6 13.0 - 17.5 g/dL Hct 39.1 38.9 - 50.3 % [facility] [place]) Blood 01/13/2025 11:5 9 AM CDT 01/13/2025 12:03 PM CDT us Prabhjot Taveras MD LAB BLOOD ORDERABLES Fi nal Result Performing Organization Address [facility] Co de Phone Number [facility] [place]) 1 [facility] [place] [address] * CT Abdomen Pelvis WO Contrast (01/13/2025 [...] by Lilian Aly M.D. SN: Report ID: [id number] Reading Location: [id number] Procedure Note Lilian Aly MD - 01/13/2025 [...] Lilian Aly M.D. SN: SN Report ID: [id number] Reading Location: [id number] us Aydin Chaudhary MD IMG CT PROCEDURES [...] Lilian Aly M.D. SN: SN Report ID: [id number] Reading Location: [id number] Procedure Note Lilian Aly MD - 01/13/2025 [...] Lilian Aly M.D. SN: SN Report ID: [id number] Reading Location: [place] [address] Aydin Chaudhary MD IMG XR PROCEDURES Final [...] tendency for uric acid stone formation. Source: [employer] Current Interpretive Data was last revised on [...] DERABLES Final Result [facility] ([place]) 1 [facility] Department [place] [address] * (ABNORMAL) Drugs of Abuse Screen, Urine [...] 2023. Urine Creatinine 76 mg/dL LESTER JAFFE [facility] ([place]) Comment: Interpretive Data Urine Creatinine: < 10 mg/dL is extremely dilute = or > 10 but < 20 mg/dL is dilute = or > 20 mg/dL is normal Current Interpretive Data was last revised on 2017. Urine 01/13/2025 3:37 AM CDT 01/13/2025 3:43 AM CDT Narrative [facility] ([place]) - 01/13/2025 4:01 AM CDT Drug of Abuse screening is performed by immunoassay for medical purposes only. This is not to be used for Pain Management purposes. Aydin Chaudhary MD LAB URINE ORDERABLES Final Re sult Performing Organization Address City/[facility]/ZIP Co de Phone Number [facility] ([place]) 1 [facility] [place] [address] * Osmolality, urine (01/13/2025 3:37 AM CDT) Osmo, ur 355 mOsm/kg Comment:Testing performed by : [facility], [address] [place] [address]., [id number] Urine 01/13/2025 3:37 AM CDT 01/13/2025 2:00 PM CDT Aydin Chaudhary MD LAB URINE ORDERABLES Final Re sult [facility] ([place]) 1 [place] [address] * (ABNORMAL) Osmolality, blood (01/13/2025 3:37 AM CDT) Osmo 384(C) 275 - 300 mOsm/kg Comment: reviewed Testing performed by: [facility], [address] [place] [address]., [id number] Blood 01/13/2025 3:37 AM CDT 01/13/2025 2:01 PM CDT us Aydin Chaudhary MD LAB BLOOD ORDERABLES Final Re sult [facility] ([place]) 1 [facility] [place] [address] * Lipase (01/13/2025 3:37 AM CDT) Lipase 26 10 - 99 Units/L Blood 01/13/2025 3:37 AM CDT 01/13/2025 5:25 AM CDT Aydin Chaudhary MD LAB BLOOD ORDERABLES Final Re sult Performing Organization Address [facility] Co de Phone Number [facility] ([place] 1 [facility] [place] [address] * (ABNORMAL) eGFR (01/13/2025 2:57 AM CDT) [...] BLOOD ORDERABLES Final Re sult [facility] ([place]) 1 [facility] Department [place] [address] * (ABNORMAL) Differential, auto (01/13/2025 2:57 AM CDT) Neutrophil abs 4.31 1.50 - 6.50 K/cumm Imm gran abs 0.02 0.00 - 0.10 K/cumm [facility] ([place]) Lymphocyte abs 4.29(H) 0.80 - 3.30 K/cumm [facility] ([place]) Monocyte abs 0.59 0.20 - 0.80 K/cumm [facility] ([place]) Eosinophil abs 0.13 0.00 - 0.50 K/cumm [facility] ([place]) Basophil abs 0.10 0.00 - 0.10 K/cumm [facility] ([place]) Neutrophil pct 45.6 % [facility] ([place]) Comment: Interpretive Data Percent cell count reference ranges are not reported, since discordance with absolute values may lead to misinterpretation of CBC data. Current Interpretive Data was last revised on 2017. Imm gran pct 0.2 % [facility] ([place]) Comment: Interpretive Data Percent cell count reference ranges are not reported, since discordance with absolute values may lead to misinterpretation of CBC data. Current Interpretive Data was last revised on 2017. Lymphocyte pct 45.4 % [facility] ([place]) Comment: Interpretive Data Percent cell count reference ranges are not reported, since discordance with absolute values may lead to misinterpretation of CBC data. Current Interpretive Data was last revised on 2017. Monocyte pct 6.3 % [facility] ([place]) Comment: Interpretive Data Percent cell count reference ranges are not reported, since discordance with absolute values may lead to misinterpretation of CBC data. Current Interpretive Data was last revised on 2017. Eosinophil pct 1.4 % [facility] ([place]) Comment: Interpretive Data Percent cell count reference [...] Final Re sult [facility] ([place]) 1 [facility] [place] [address] * (ABNORMAL) CBC with auto differential (01/13/2025 [...] ORDERABLES Final Re sult Performing Organization Address City/[facility]/ZIP Co de Phone Number [facility] ([place]) 1 [facility] [place] [address] * ABO/Rh (01/13/2025 2:57 AM CDT) ABO/Rh O Positive Blood 01/13/2025 2:57 AM CDT 01/13/2025 3:18 AM CDT Narrative [facility] ([place]) - 01/13/2025 3:47 AM CDT Has the patient had Daratumumab or Isatuximab in the past 6 months?->Unknown Aydin Chaudhary MD LAB BLOOD BANK TEST ORDERABLE S Final Result Performing Organization Address [facility] [facility] Co de Phone Number [facility]SO [facility]LL ([place] 1 [facility] [place] [address] * aPTT (01/13/2025 2:57 AM CDT) aPTT 33 28 - 38 sec ALPHONSO T[place]WELL ([place]) Comment: Interpretive Data Heparin therapeutic range: 66.0 - 100.0 seconds. Range based on correlation with therapeutic heparin activity range of 0.3 - 0.7 Units/mL. Current interpretive data was last revised on 2023. Blood 01/13/2025 2:57 AM CDT 01/13/2025 3:18 AM CDT Aydin Chaudhary MD LAB BLOOD ORDERABLES Final Re sult Performing Organization Address City/[facility]/ZIP Co de Phone Number AL[facility]ONSO T[place]WELL ([place]) 1 [facility] [place] [address] * Protime-INR (01/13/2025 2:57 AM CDT) PT 11.3 9.7 - 13.0 sec [facility]SO [facility]LL ([place]) INR 1.05 0.90 - 1.20 ALPHONSO TIDWELL ([place]) Comment: Interpretive data Oral anticoagulant therapeutic ranges: Venous thromboembolism prophylaxis or treatment: 2.0-3.0 CARDIOLOGY Standard range: 2.0-3.0 High-intensity range: 2.5-3.5 Refer to indication-specific guidelines for appropriate target ranges for prosthetic heart valve replacement. Current interpretive data was last revised on 2019. Blood 01/13/2025 2:57 AM CDT 01/13/2025 3:18 AM CDT Aydin Chaudhary MD LAB BLOOD ORDERABLES Final Re sult Performing Organization Address City/[facility]/ZIP Co de Phone Number ALPHONSO T[place]WELL ([place]) 1 [facility] [place] [address] * Antibody screen (01/13/2025 2:57 AM CDT) Twin, indirect, Gel Interpretation Negative ABSC Blood 01/13/2025 2:57 AM CDT 01/13/2025 3:18 AM CDT Narrative [facility]PHONSO T[facility]WELL ([place]) - 01/13/2025 4:20 AM CDT Has the patient had Daratumumab or Isatuximab in the past 6 months?->Unknown Aydin Chaudhary MD LAB BLOOD BANK TEST ORDERABLE S Final Result Performing Organization Address [facility] Co de Phone Number ALPHONSO TIDWELL ([place]) [address] [place] [address] [place] [address] * (ABNORMAL) Ethanol (01/13/2025 2:57 AM CDT) Ethanol 329(C) <=10 mg/dL Comment: Critical Result called by [email or web address] at 2025-01-13 04:11:29. Result Read Back by Fadumo Anaya ED Interpretive Data Legal limit of intoxication > or = 80 mg/dL Levels > or = 400 mg/dL are potentially TOXIC. Current interpretive data was last revised on 2018. Blood 01/13/2025 2:57 AM CDT 01/13/2025 3:50 AM CDT us Aydin Chaudhary MD LAB BLOOD ORDERABLES Final Re sult [facility] ([place]) 1 [facility] [place] [address] * (ABNORMAL) Comprehensive metabolic panel (01/13/2025 2:57 [...] BLOOD ORDERABLES Final Re sult [facility] ([place]) 1 [facility] [place] [address] from Last 3 Months Insurance [facility] Advance Directives For more information, please contact: [phone] * Full Code (Latest Code Status on File) Date Activated Date Inactivated Comments 01/15/2025 12:06 PM 01/15/2025 7:30 PM * Full Code Date Activated Date Inactivated Comments 01/13/2025 6:19 AM 01/15/2025 12:06 PM Care Teams Label Stitcher Relationship Specialty Start Date End Date Ernesto De [place] [address] PCP - General Family Medicine 09/20/19
--- OUTSIDE RECORDS SUMMARY | 2025-03-20 19:13 | XMS_ITS | Clinical Summary ---
Author Organization [facility] Address [address] [facility] [address] [place] [address] Phone Care Team Providers Care Finishing Range Supervisor Name Role Phone Deloris Sheppard Primary Care Provider [phone] Allergies No known active allergies Medications HYDROCHLOROTHIA [...] age to complete this topic Insurance [place] Care Teams Finishing Range Supervisor Relationship Specialty Start Date End Date Deloris Sheppard PA [address] [address] PCP - General Adult Medicine 06/22/18
--- OUTSIDE RECORDS SUMMARY | 2025-03-20 19:13 | XMS_ITS | Clinical Summary ---
Author Organization [facility] Address [address] [place] [address] Care Team Providers Care Fuse Assembler Name Role Phone Ernesto De La Rosa MD Primary Care Provider [phone] Allergies No known active allergies Medications needle, [...] 02/16/2022 Assessment & Plan (09/28/2024 4:09 PM FIELD ARTILLERY OPERATIONS SPECIALIST): Encouraged heart healthy diet and lifestyle. Advised 150 min/week of aerobic exercise. Assessment & Plan (11/04/2022 2:40 PM FIELD ARTILLERY OPERATIONS SPECIALIST): Discussed healthy diet and importance of regular [...] High 26 R Comment: Testing performed by: [facility], [address] [place] [address]., [id number] AST 10 - 50 Units/L 148 High 78 High CM 124 High 71 High LFTs elevated last 3 draws. Will recheck. Discussed possible statin change. Discussed avoiding tylenol & alcohol as he is able. Refused pneumococcal vaccination 02/16/2022 Hypogonadism in male 01/30/2021 Assessment & Plan (09/28/2024 4:12 PM FIELD ARTILLERY OPERATIONS SPECIALIST): Stable and well controlled. Will continue with testosterone and monitoring Assessment & Plan (05/12/2023 2:06 PM CDT): Continue testosterone 100 mg weekly Assessment & Plan (11/04/2022 2:41 PM FIELD ARTILLERY OPERATIONS SPECIALIST): Has been out of medication for the [...] 10/27/21 Assessment & Plan (08/07/2021 1:18 PM FIELD ARTILLERY OPERATIONS SPECIALIST): 04/23/21 t=364, had been 251 08/2021. Continues [...] 09/19/2019 Assessment & Plan (09/28/2024 4:12 PM FIELD ARTILLERY OPERATIONS SPECIALIST): Stable and well controlled. Will continue on Klonopin and monitoring. Assessment & Plan (11/04/2022 2:48 PM FIELD ARTILLERY OPERATIONS SPECIALIST): Taking clonazepam p.r.n. with good response. Assessment [...] flags. Assessment & Plan (08/07/2021 1:20 PM FIELD ARTILLERY OPERATIONS SPECIALIST): Clonazepam 0.5mg tid prn #90 refilled 07/06/21. [...] 07/25/2019 Assessment & Plan (09/28/2024 4:09 PM FIELD ARTILLERY OPERATIONS SPECIALIST): Blood pressure stable and well controlled. Will continue on Labetalol and Losartan. Assessment & Plan (05/12/2023 2:05 PM CDT): Blood pressure showing improvement, no changes made today. Assessment & Plan (11/04/2022 2:48 PM FIELD ARTILLERY OPERATIONS SPECIALIST): Blood pressure is not well controlled today, [...] received. Assessment & Plan (08/07/2021 1:21 PM FIELD ARTILLERY OPERATIONS SPECIALIST): Losartan 100mg daily, labetalol 200mg bid. The [...] BP Assessment & Plan (10/25/2019 11:56 AM FIELD ARTILLERY OPERATIONS SPECIALIST): Elevation today likely due to increasing anxiety Assessment & Plan (09/22/2019 1:53 PM FIELD ARTILLERY OPERATIONS SPECIALIST): Will continue amlodipine 10mg daily. Will increase losartan from 50mg to 100mg daily. To check BP/log at home. Referral entered to [facility] by Blayne Plascencia NP at appt last week. (appt w/Dr Mendez 10/10/19) To take BP log to that appt once set. rtc in 1 mo if unable to get into [facility] prior to then for BP recheck. [...] received. Assessment & Plan (08/27/2019 1:34 PM FIELD ARTILLERY OPERATIONS SPECIALIST): Will place cardiology referral. He is not responding well to losartan or amlodipine nor has he responded well to the medications in the past. Advised to report to the ER for chest pain shortness of breath or any distress. Assessment & Plan (07/25/2019 11:49 AM FIELD ARTILLERY OPERATIONS SPECIALIST): He has not used his medication in over 2 months due to being out not been able to afford it. Will restart medication at current dosages and follow up in 30 days Annual physical exam 07/25/2019 Assessment & Plan (09/28/2024 4:13 PM FIELD ARTILLERY OPERATIONS SPECIALIST): In regard to health maintenance, Colonoscopy- scheduled [...] healthier, we can set up appointment with ore smelter/shellfish shucker. Have an active lifestyle, strive for 30 [...] man. Assessment & Plan (07/25/2019 11:48 AM FIELD ARTILLERY OPERATIONS SPECIALIST): Patient is without insurance at this time. [...] vulnerable. Assessment & Plan (08/07/2021 1:21 PM FIELD ARTILLERY OPERATIONS SPECIALIST): Discussed and the patient refuses immunization today. Educated regarding the need to vaccinate for personal protection and to limit the viruses in the community to protect those most vulnerable. Assessment & Plan (09/22/2019 1:48 PM FIELD ARTILLERY OPERATIONS SPECIALIST): Discussed and the patient refuses immunization today. Educated regarding the need to vaccinate for personal protection and to limit the viruses in the community to protect those most vulnerable. Gastroesophageal reflux disease 04/24/2018 Assessment & Plan (09/28/2024 4:16 PM FIELD ARTILLERY OPERATIONS SPECIALIST): Stable and well controlled. Omeprazole will continue and monitor Hyperlipidemia 04/24/2018 Assessment & Plan (09/28/2024 4:11 PM FIELD ARTILLERY OPERATIONS SPECIALIST): LDL greatly improved and almost at goal at <70. Will continue on Atorvastatin. Will continue to monitor. Assessment & Plan (05/28/2024 4:22 PM CDT): Encourage compliance with atorvastin. Reviewed lifestyle recommendations Assessment & Plan (05/12/2023 2:06 PM CDT): Encouraged patient to take atorvastatin 40 mg daily. Assessment & Plan (11/04/2022 2:46 PM FIELD ARTILLERY OPERATIONS SPECIALIST): Patient is not currently taking atorvastatin. Will check labs today. Patient encouraged to take daily. Reviewed cardiovascular risk. Assessment & Plan (02/19/2022 11:07 AM CDT): 09/03/20 WO=422 HDL=55 VN=796 GUS=977 TC/HDL=5.0 FBHBHP=712 04/23/21 DH=431 HDL=41 VP=871 FIK=712 TC/HDL=6 XBLJSR=942 T=364 05/08/21 SG=743 HDL=38 JE=951 NKB=489 TC/HDL=6.4 DSIYBS=219 08/07/21 LY=860 HDL=20 ZJ=383 SGW=238 TC/HDL=13.6 HGARIB=881 09/28/21 WD=050 HDL=46 NX=812 CYW=757 TC/HDL=4 EYPZZN=216 12/02/21 KH=730 HDL=44 DP=434 WLJ=681 TC/HDL=6 EEQNGR=826 Atorvastatin 40mg daily. Continues to lose weight. [...] & Plan (11/10/2021 5:51 PM CDT): 09/03/20 BV=048 HDL=55 VJ=406 UIM=054 TC/HDL=5.0 XLRNEG=095 04/23/21 PZ=215 HDL=41 QW=516 AZS=377 TC/HDL=6 GVOMMU=476 T=364 05/08/21 VL=553 HDL=38 CL=438 KYI=538 TC/HDL=6.4 KBLXWZ=174 08/07/21 CI=747 HDL=20 PE=082 LWR=743 TC/HDL=13.6 LKQYZH=394 09/28/21 PX=904 HDL=46 KH=936 PUH=402 TC/HDL=4 AWGTPC=734 Atorvastatin 40mg daily. Has lost 26# on [...] flags. Assessment & Plan (08/07/2021 2:00 PM FIELD ARTILLERY OPERATIONS SPECIALIST): atorvastatin 20mg daily. Denies myalgias. 09/03/20 FK=558 HDL=55 QN=709 CSJ=916 TC/HDL=5.0 ZZTBZE=154 09/19/20 T=251 04/23/21 SQ=124 HDL=41 NW=115 VOC=136 TC/HDL=6 LULSQT=863 T=364 05/08/21 PD=491 HDL=38 UT=855 YMV=486 TC/HDL=6.4 YMNAKC=334 08/07/21 CG=964 HDL=20 FF=612 LJH=224 TC/HDL=13.6 AGXIRD=215 Will double atorvastatin from 20mg to 40mg. [...] & Plan (05/08/2021 3:51 PM CDT): 04/16/20 AP=176 HDL=56 HM=858 ATV=704 TC/HDL=5 FLYASG=012 09/03/20 CW=779 HDL=55 IU=369 LXH=749 TC/HDL=5.0 QLOLWJ=910 04/23/21 JT=142 HDL=41 PW=133 BXH=243 TC/HDL=6 CYTDRQ=222 T=364 05/08/21 ZG=047 HDL=38 JJ=597 GBG=596 TC/HDL=6.4 CIWYZK=932 Atorvastatin 20mg daily sent. Reviewed med SE & scheduling. Stressed need for diet/activity changes. Discussed healthier options of frozen meals, better snacks. Will recheck lipid panel in 3 mos. Assessment & Plan (02/01/2021 4:00 PM CDT): 04/16/20 QG=081 HDL=56 PB=286 DAH=845 TC/HDL=5 09/03/20 ML=311 HDL=55 TG=247 CSV=432 TC/HDL=5.0 Lipid panel ordered; will call w/results when received. Reviewed diet/exercise recommendations. Discussed need for statin if TC/LDL remains elevated. Assessment & Plan (02/12/2020 3:55 PM CDT): 09/20/19 HF=766 HDL=55 TG=77 RJJ=140 TC/HDL=4.4 Lipid panel sent to [facility]. Will be going to get labs [...] 02/19/2022 Assessment & Plan (08/07/2021 1:51 PM FIELD ARTILLERY OPERATIONS SPECIALIST): H/o palpitations for many years. Had holter monitor in his 20s. Denies excess caffeine intake. No CP/SOB. holter monitor ordered. Will contact w/results once rec'd. Acute nasopharyngitis 08/07/20212021 Assessment & Plan (08/07/2021 1:58 PM FIELD ARTILLERY OPERATIONS SPECIALIST): Discussed otc mucinex plain & coricidin HBP. Discussed saline rinse. Will call if no improvement in 1 week w/otc medications. Class 2 severe obesity due t o excess calories with serious comorbidity and body mass index (BMI) of 37.0 to 37.9 in adult 05/08/2021 2 Assessment & Plan (08/07/2021 1:19 PM FIELD ARTILLERY OPERATIONS SPECIALIST): Reviewed need to lose weight, reviewed health benefits. Reviewed recommendations for daily intake & activity 20-30 minutes/day. Discussed healthy diet and importance of regular physical activity. Assessment & Plan (05/08/2021 3:48 PM CDT): Reviewed need to lose weight, reviewed health benefits. Reviewed recommendations for daily intake & activity 20-30 minutes/day. Discussed healthy diet and importance of regular physical activity. Has gym membership at [employer]; not using currently. Subareolar lump of left breast 02/01/2021 02/19/2022 Assessment & Plan (02/01/2021 4:15 PM CDT): L breast US ordered. Aware to call [facility] to schedule. Contact info given. Will contact w/results once rec'd. Aware to check his [employer] account for results. Hypogonadism male 01/30/2021 05/08/2021 [...] importance of regular physical activity. Has started [email or web address] service. 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 [...] cessation. Discussed different types of medications & kxow-gmk-eysaxtg aides to help with cessation. Assessment & Plan (02/12/2020 3:56 PM CDT): Precontemplative. Encouraged complete smoking cessation. Discussed different types of medications & eskr-vdz-tnhhbob aides to help with cessation. Assessment & Plan (09/22/2019 1:53 PM FIELD ARTILLERY OPERATIONS SPECIALIST): Precontemplative. Encouraged complete smoking cessation. Discussed different types of medications & hxqe-rsq-hlprpkd aides to help with cessation. Encounter for screening for lipoid disorders 0 12/05/2020 Assessment & Plan (09/22/2019 1:51 PM FIELD ARTILLERY OPERATIONS SPECIALIST): 09/20/19 MW=670 HDL=55 TG=77 AKS=494 TC/HDL=4.4. Copy of results & written explanation/parameters given to Mr Marcelo. Need to greatly improve diet; LDL & cholesterol high. Labs given to repeat lipid panel in 3 mos. BMI 33.0-33.9,adult 09/20/2019 02/12/20 Assessment & Plan (09/22/2019 1:51 PM FIELD ARTILLERY OPERATIONS SPECIALIST): Reviewed need to lose weight, reviewed health benefits. Reviewed recommendations for daily intake & activity 20-30 minutes/day. Discussed healthy diet and importance of regular physical activity. Bronchitis 09/20/2019 12/05/2020 Assessment & Plan (09/22/2019 1:52 PM FIELD ARTILLERY OPERATIONS SPECIALIST): Zpack & medrol dose pack sent. To p/u expectorant (ie mucinex) and antihistamine (ie pat/claritin/zyrtec). Reviewed med Ses & scheduling. Aware to complete antibiotic & medrol. Reviewed red flags; what would warrant rtc or ED for further eval. Push fluids. Stressed need to STOP smoking. Sore throat 09/20/2019 12/05/2020 Assessment & Plan (09/22/2019 1:53 PM FIELD ARTILLERY OPERATIONS SPECIALIST): NEG for strep at office. Gargle with [...] 09/22/2019 Assessment & Plan (08/27/2019 1:37 PM FIELD ARTILLERY OPERATIONS SPECIALIST): Well controlled with current medication Assessment & Plan (07/25/2019 11:49 AM FIELD ARTILLERY OPERATIONS SPECIALIST): Stable on current medication. Will continue current prescribed therapy. Encounters Date Type Department Care Team Description 01/15/2025 1:45 PM CDT - 01/15/2025 2:00 PM CDT Surgery [facility] Digestive [facility] [address] [place] [address] Shital Luis MD ESOPHAGOGASTRODUODENOSCOPY 01/15/2025 1:00 PM CDT Anesthesia Event [facility] [address] [place] [address] Camryn Palomo MD 01/13/2025 2:59 AM CDT - 01/15/2025 3:25 PM CDT Hospital Encounter [facility] Acute Medicine [address] [place] [id number] Aydin Chaudhary MD [facility], MD Anca Stevenson Jelena, MD Sargsyan, Narine, MD Hematemesis with nausea (Primary Dx); Alcohol use disorder; BLAS (acute kidney injury); Gastroesophageal reflux disease, unspecified whether esophagitis present Discharge Disposition: Discharge to home or self care 01/13/2025 Documentation [facility] Warm Hand Off Program [address] [place] [address] Laura Leon from Last 3 Months Immunizations [...] on file Legal Sex Male 3:02 AM FIELD ARTILLERY OPERATIONS SPECIALIST Gender Identity Male 01/19/2022 9:29 PM CDT [...] Luis MD - 01/15/2025 12:16 PM CDT [facility] Patient Name: Roberth Marcelo Procedure Date: 01/15/2025 12:16 PM Date of : 1985 Admit Type: Inpatient Age: 39 Gender: Male Attending MD: Shital Luis M.D. Room: [facility] ENDOSCOPY ROOM 1 Note Status: Finalized Patient Profile: This is a 39 year old male. Patient admitted with nausea vomiting. Noted the steatohepatitis likelyset alcohol use. History of alcohol overdose. Procedure: Upper GI endoscopy Indications: Hematemesis Referring MD: Ernesto De La Rosa M.D. Providers: Shital Luis M.D. Impression: - Small hiatal hernia. - Fsgk-qd-adcaqbrh erosive esophagitis. - No specimens collected. Recommendation: - Use Protonix (pantoprazole) 40 mg PO BID for 3 months then once daily for 6 months. - Follow an antireflux regimen. Avoid alcohol use.Use yoxe-ndy-lnrnpwh antacid medications as needed. - Reglan 10 [...] passed under direct vision. The Endoscope [id number] was introduced through the mouth, and advanced [...] 12:16 PM Procedure Code(s): --- Professional --- 35314, Esophagogastroduodenoscopy, flexible, transoral; diagnostic, including collection of specimen(s) by brushing or washing, when performed (separate procedure) Diagnosis Code(s): --- Professional --- K44.9, Diaphragmatic hernia without obstruction or gangrene K92.0, Hematemesis K21.00, Gastro-esophageal reflux disease with esophagitis, without bleeding CPT copyright 2020 [employer]. All rights reserved. The codes documented in this report are preliminary and upon ring packer reviewmay be revised to meet current compliance requirements. Recognized by the [employer] for promoting quality [...] MD LAB BLOOD ORDERABLES Final Res ult [facility] Department [place] [address] * Differential, auto (01/15/2025 3:57 AM CDT) Pathologist [facility] Neutrophil abs 4.09 1.50 - 6.50 K/cumm Imm gran abs 0.02 0.00 - 0.10 K/cumm [facility] Lymphocyte abs 2.71 0.80 - 3.30 K/cumm [facility] ([facility]) Monocyte abs 0.44 0.20 - 0.80 K/cumm [facility] ([facility]) Eosinophil abs 0.07 0.00 - 0.50 K/cumm [facility] ([place]) Basophil abs 0.05 0.00 - 0.10 K/cumm [facility] ([facility]) Neutrophil pct 55.4 % [facility] ([facility]) Comment: Interpretive Data Percent cell count reference [...] Final Res ult [facility] Department [place] [address] * (ABNORMAL) CBC with auto differential (01/15/2025 3:57 AM CDT) WBC 7.38 3.80 - 9.90 K/cumm Hgb 13.8 13.0 - 17.5 g/dL [facility] ([place]) Hct 39.0 38.9 - 50.3 % [facility] Plt 185 150 - 400 K/cumm [facility] ([place]) MPV 10.4 9.1 - 12.3 fL [facility] ([place]) RBC 4.07(L) 4.30 - 5.80 M/cumm [facility] MCV 95.8 81.3 - 96.4 fL [facility] MCH 33.9(H) 27.1 - 33.3 pg [facility] MCHC 35.4 32.3 - 35.7 g/dL [facility] RDW CV 13.1 11.1 - 14.9 % [facility] RDW SD 45.9 35.7 - 48.1 fL [facility] NRBC abs 0.00 0.00 - 0.01 K/cumm [facility] Blood 01/15/2025 3:57 AM CDT 01/15/2025 5:31 AM CDT Shital Luis MD LAB BLOOD ORDERABLES Final Result [facility] Department of Laboratories [place], [place] [id number] * Comprehensive metabolic panel (01/15/2025 3:57 AM CDT) Sodium 139 135 - 145 mmol/L Potassium, pl 3.6 3.3 - 4.9 mmol/L [facility] Chloride 100 97 - 110 mmol/L [facility]) CO2 25 22 - 32 mmol/L [facility] Anion gap 14 2 - 15 mmol/L [facility] BUN 10 6 - 25 mg/dL [facility]) Creatinine 1.03 0.80 - 1.30 mg/dL [facility] ([place] Comment:Icteric sample, test results may be affected. Glucose 99 70 - 199 mg/dL [facility] ([place] Comment: Interpretive Data Fasting [...] ORDERABLES Final Result [facility] Department [place] [address] * eGFR (01/14/2025 8:59 AM CDT) eGFR [...] MD LAB BLOOD ORDERABLES Final Res ult [facility] Department [place] [address] * Comprehensive metabolic panel (01/14/2025 8:59 AM [...] ORDERABLES Final Result [facility] Department [place] [address] * eGFR (01/14/2025 3:58 AM CDT) eGFR [...] Final Res ult [facility] Department [place] [address] * (ABNORMAL) Basic metabolic panel (01/14/2025 3:58 AM CDT) Sodium 138 135 - 145 mmol/L Potassium, pl 3.8 3.3 - 4.9 mmol/L [facility] Chloride 99 97 - 110 mmol/L [facility] CO2 22 22 - 32 mmol/L [facility]) Anion gap 16(H) 2 - 15 mmol/L [facility] BUN 12 6 - 25 mg/dL [facility] Creatinine 1.14 0.80 - 1.30 mg/dL [facility]) Glucose 89 70 - 199 mg/dL [facility] Comment: Interpretive Data Fasting [...] 2022. Calcium 8.8 8.5 - 10.3 mg/dL [facility] Blood 01/14/2025 3:58 AM CDT 01/14/2025 5:55 AM CDT us Tiffanie March MD LAB BLOOD ORDERABLES Final Res ult [facility] ([place] Department of [employer] [address] * (ABNORMAL) Hemoglobin and hematocrit (01/14/2025 3:54 AM CDT) Hgb 13.4 13.0 - 17.5 g/dL Hct 37.8(L) 38.9 - 50.3 % [facility] Blood 01/14/2025 3:54 AM CDT 01/14/2025 4:43 AM CDT us Tiffanie March MD LAB BLOOD ORDERABLES Final Res ult Performing Organization Address City/[facility]/ZIP Co de Phone Number [facility] 1 [facility] [place] [address] * ABO / Rh Confirmation Testing (01/13/2025 11:59 AM CDT) ABO/Rh Confirmation O Positive [facility] Blood 01/13/2025 11:5 9 AM CDT 01/13/2025 12:03 PM CDT us Aydin Chaudhary MD LAB BLOOD ORDERABLES Final Re sult Performing Organization Address [facility] Co de Phone Number [facility] 1 [facility] [employer] [place] [address] [facility] * Hemoglobin and hematocrit (01/13/2025 11:59 AM CDT) Hgb 13.6 13.0 - 17.5 g/dL Hct 39.1 38.9 - 50.3 % [facility] Blood 01/13/2025 11:5 9 AM CDT 01/13/2025 12:03 PM CDT us Prabhjot Taveras MD LAB BLOOD ORDERABLES Fi nal Result Performing Organization Address [facility]/ZIP Co de Phone Number [facility] 1 [facility] [place] [address] * CT Abdomen Pelvis WO Contrast (01/13/2025 [...] by Lilian Aly M.D. SN: Report ID: [id number] Reading Location: [id number] Procedure Note Lilian Aly MD - 01/13/2025 [...] by Lilian Aly M.D. SN: Report ID: [id number] Reading Location: [id number] us Aydin Chaudhary MD IMG CT PROCEDURES [...] Lilian Aly M.D. SN: SN Report ID: [id number] Reading Location: [id number] Procedure Note Lilian Aly MD - 01/13/2025 [...] Lilian Aly M.D. SN: SN Report ID: [id number] Reading Location: [id number] Aydin Chaudhary MD IMG XR PROCEDURES Final [...] tendency for uric acid stone formation. Source: [facility] Current Interpretive Data was last revised on [...] DERABLES Final Result [facility] ([place]) [facility] Department [place] [address] * (ABNORMAL) Drugs of Abuse Screen, Urine [...] Final Re sult [facility] ([place] Department [place] [address] * Osmolality, urine (01/13/2025 3:37 AM CDT) Osmo, ur 355 mOsm/kg Comment:Testing performed by : [facility], [address] [place] [address]., [id number] Urine 01/13/2025 3:37 AM CDT 01/13/2025 2:00 PM CDT Aydin Chaudhary MD LAB URINE ORDERABLES Final Re sult Performing Organization Address City/[facility] Co de Phone Number [facility] [address] [place] [address] [employer] [place] [address] * (ABNORMAL) Osmolality, blood (01/13/2025 3:37 AM CDT) Osmo 384(C) 275 - 300 mOsm/kg Comment: reviewed Testing performed by: [facility], [address] [place] [address]., [id number] Blood 01/13/2025 3:37 AM CDT 01/13/2025 2:01 PM CDT us Aydin Chaudhary MD LAB BLOOD ORDERABLES Final Re sult Performing Organization Address [facility] Co de Phone Number [facility] [address] [place] [address] [employer] [place] [address] * Lipase (01/13/2025 3:37 AM CDT) Lipase 26 10 - 99 Units/L Blood 01/13/2025 3:37 AM CDT 01/13/2025 5:25 AM CDT Aydin Chaudhary MD LAB BLOOD ORDERABLES Final Re sult Performing Organization Address City/[facility] Co de Phone Number [facility] [address] [place] [address] [employer] [place] [address] * (ABNORMAL) eGFR (01/13/2025 2:57 AM CDT) [...] MD LAB BLOOD ORDERABLES Final Re sult [facility] Department [place] [address] * (ABNORMAL) Differential, auto (01/13/2025 [...] Final Re sult [facility] Department [place] [address] * (ABNORMAL) CBC with auto [...] Final Re sult [facility] [email or web address] [address] * ABO/Rh (01/13/2025 2:57 AM CDT) ABO/Rh O Positive Blood 01/13/2025 2:57 AM CDT 01/13/2025 3:18 AM CDT Narrative [facility] ([place]) - 01/13/2025 3:47 AM CDT Has the patient had Daratumumab or Isatuximab in the past 6 months?->Unknown us Aydin Chaudhary MD LAB BLOOD BANK TEST ORDERABLE S Final Result [facility] ([place] [email or web address] [address] * aPTT (01/13/2025 2:57 AM CDT) aPTT 33 28 - 38 sec [facility] Comment: Interpretive Data Heparin therapeutic range: 66.0 - 100.0 seconds. Range based on correlation with therapeutic heparin activity range of 0.3 - 0.7 Units/mL. Current interpretive data was last revised on 2023. Blood 01/13/2025 2:57 AM CDT 01/13/2025 3:18 AM CDT Aydin Chaudhary MD LAB BLOOD ORDERABLES Final Re sult [facility] [email or web address] [address] * Protime-INR (01/13/2025 2:57 AM CDT) PT 11.3 9.7 - 13.0 sec [facility] INR 1.05 0.90 - 1.20 [facility] Comment: Interpretive data Oral anticoagulant therapeutic ranges: Venous thromboembolism prophylaxis or treatment: 2.0-3.0 CARDIOLOGY Standard range: 2.0-3.0 High-intensity range: 2.5-3.5 Refer to indication-specific guidelines for appropriate target ranges for prosthetic heart valve replacement. Current interpretive data was last revised on 2019. Blood 01/13/2025 2:57 AM CDT 01/13/2025 3:18 AM CDT Aydin Chaudhary MD LAB BLOOD ORDERABLES Final Re sult [facility] [email or web address] [address] * Antibody screen (01/13/2025 2:57 AM CDT) Twin, indirect, Gel Interpretation Negative ABSC Blood 01/13/2025 2:57 AM CDT 01/13/2025 3:18 AM CDT Narrative [facility] ([facility]) - 01/13/2025 4:20 AM CDT Has the patient had Daratumumab or Isatuximab in the past 6 months?->Unknown us Aydin Chaudhary MD LAB BLOOD BANK TEST ORDERABLE S Final Result Performing Organization Address [facility] Co de Phone Number [facility] ([facility]) [address] [place] [address] * (ABNORMAL) Ethanol (01/13/2025 2:57 AM CDT) Ethanol 329(C) <=10 mg/dL Comment: Critical Result called by [id number] at 2025-01-13 04:11:29. Result Read Back by Fadumo Anaya ED Interpretive Data Legal limit of intoxication > or = 80 mg/dL Levels > or = 400 mg/dL are potentially TOXIC. Current interpretive data was last revised on 2018. Blood 01/13/2025 2:57 AM CDT 01/13/2025 3:50 AM CDT us Aydin Chaudhary MD LAB BLOOD ORDERABLES Final Re sult Performing Organization Address [facility] Co de Phone Number [facility] ([facility]) [address] [place] [address] * (ABNORMAL) Comprehensive metabolic panel (01/13/2025 2:57 AM CDT) Sodium 144 135 - 145 mmol/L Potassium, pl 4.2 3.3 - 4.9 mmol/L [facility] ([facility]) Chloride 103 97 - 110 mmol/L [facility] ([facility]) CO2 28 22 - 32 mmol/L [facility] ([facility]) Anion gap 14 2 - 15 mmol/L [facility] ([facility]) BUN 17 6 - 25 mg/dL [facility] ([facility]) Creatinine 1.61(H) 0.80 - 1.30 mg/dL [facility] ([facility]) Glucose 128 70 - 199 mg/dL [facility] ([facility]) Comment: Interpretive Data Fasting [...] Final Re sult [facility] ([facility]) [facility] Department [place] [address] from Last 3 Months Insurance [facility] Advance Directives For more information, please contact: [phone] * Full Code (Latest Code Status on File) Date Activated Date Inactivated Comments 01/15/2025 12:06 PM 01/15/2025 7:30 PM * Full Code Date Activated Date Inactivated Comments 01/13/2025 6:19 AM 01/15/2025 12:06 PM Care Teams Fuse Assembler Relationship Specialty Start Date End Date Ernesto [place] [address] PCP - General Family Medicine 09/20/19
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
[2025-03-20 19:17] VITALS: BP 131/80; PULSE 124; RESP 26; TEMP 36.8; O2SAT 98
--- NOTE | 2025-03-20 19:20 | ECG_ITS ---
Test Date: 2025-03-20 19:24:31 Measurements Intervals [place] Rate: 122 P: 0 [place]: 0 QRS: 19 QRSD: 92 T: 18 QT: 315 QTc: 450 Interpretive Statements SINUS TACHYCARDIA MODERATE ST DEPRESSION [0.05+ mV ST DEPRESSION] Compared to ECG 03/20/2025 17:45:33 no significant changes Electronically Signed On 03-22-2025 15:35:59 CDT by Richard Villarreal M.D.
[2025-03-20 19:38] LABS: Hematocrit 37.4 % (42.0-52.0); Hemoglobin 13.4 g/dL (14.0-18.0); Mean Corpuscular HGB Conc 35.8 g/dl (32-36); Mean Corpuscular Hemoglobin 33.8 pg (26-34); Mean Corpuscular Volume 94.4 fl (80-100); Platelet Count Result 162 k/mm3 (150-375); Red Blood Count 3.96 M/mm3 (4.6-6.20); White Blood Count 8.3 K/mm3 (4.5-10.0)
[2025-03-20 20:00] LABS: Band Neutrophils Percent 1 % (0-6); Eosinophils Absolute Manual 0.16 K/mm3 (0.02-0.50); Eosinophils Percent Manual 2 % (0-4); Lymphocytes Absolute Manual 2.24 K/mm3 (1.1-4.5); Lymphocytes Percent Manual 27.0 % (18-44); Monocytes Absolute Manual 0.16 K/mm3 (0.1-0.90); Monocytes Percent Manual 2 % (3-9); Neutrophils Absolute Manual 5.72 K/mm3 (1.3-6.7); Neutrophils Percent Manual 68 % (46-73); Total Cells Counted 100
[2025-03-20 20:01] LABS: Schistocytes None Seen
[2025-03-20 20:02] LABS: Anisocytosis 2+
[2025-03-20 20:06] LABS: Alanine Aminotransferase 185 U/L (6-50); Albumin Level 4.3 g/dL (3.5-5.1); Alkaline Phosphatase 201 U/L (38-126); Anion Gap 15 mmol/L (4-12); Aspartate Amino Transferase 560 U/L (17-59); Bilirubin,Total 2.7 mg/dL (0.2-1.3); Blood Urea Nitrogen 11 mg/dL (9-20); Calcium 8.6 mg/dL (8.4-10.2); Carbon Dioxide 20 mmol/L (22-30); Chloride 98 mmol/L (98-107); Estimated CRCL calculation 61 ml/min; Estimated Glomerular Filt Rate 38; Glucose 161 mg/dL (65-110); Potassium 3.6 mmol/L (3.4-5.0); Sodium 133 mmol/L (137-145); Total Protein 9.0 g/dL (6.3-8.2)
[2025-03-20 22:36] VITALS: BP 132/87; PULSE 114; RESP 18; TEMP 36.8; O2SAT 97
[2025-03-21] VITALS (7 sets, daily range): BP systolic 132–159; BP diastolic 64–98; PULSE 90–115; RESP 18–97; TEMP 36.7–37.1; O2SAT 18–98
[2025-03-21 03:15] LABS: Add Urine Microscopic? YES; Appearance Urine Turbid (Clear); Glucose Urine UA Negative (Negative); Leukocyte Esterase Ur 2+ LEU/UL (Negative); Need Manual Microscopic Reviewed; Nitrate Urine Negative (Negative); Non Pathogenic Casts >20; Specific Grav Ur 1.028 (1.001-1.035)
--- OUTSIDE RECORDS SUMMARY | 2025-03-21 04:22 | XMS_ITS | Clinical Summary ---
Author Organization [facility] Address [address] [place] [address] Care Team Providers Care Wound Care Nurse Name Role Phone Ernesto De La Rosa MD Primary Care Provider [phone] Allergies No known active allergies Medications needle, [...] 02/16/2022 Assessment & Plan (09/28/2024 4:09 PM ACTING INSTRUCTOR): Encouraged heart healthy diet and lifestyle. Advised 150 min/week of aerobic exercise. Assessment & Plan (11/04/2022 2:40 PM ACTING INSTRUCTOR): Discussed healthy diet and importance of regular [...] High 26 R Comment: Testing performed by: [facility], [address] [place] [address]., [id number] AST 10 - 50 Units/L 148 High 78 High CM 124 High 71 High LFTs elevated last 3 draws. Will recheck. Discussed possible statin change. Discussed avoiding tylenol & alcohol as he is able. Refused pneumococcal vaccination 02/16/2022 Hypogonadism in male 01/30/2021 Assessment & Plan (09/28/2024 4:12 PM ACTING INSTRUCTOR): Stable and well controlled. Will continue with testosterone and monitoring Assessment & Plan (05/12/2023 2:06 PM CDT): Continue testosterone 100 mg weekly Assessment & Plan (11/04/2022 2:41 PM ACTING INSTRUCTOR): Has been out of medication for the [...] 10/27/21 Assessment & Plan (08/07/2021 1:18 PM ACTING INSTRUCTOR): 04/23/21 t=364, had been 251 08/2021. Continues [...] 09/19/2019 Assessment & Plan (09/28/2024 4:12 PM ACTING INSTRUCTOR): Stable and well controlled. Will continue on Klonopin and monitoring. Assessment & Plan (11/04/2022 2:48 PM ACTING INSTRUCTOR): Taking clonazepam p.r.n. with good response. Assessment [...] flags. Assessment & Plan (08/07/2021 1:20 PM ACTING INSTRUCTOR): Clonazepam 0.5mg tid prn #90 refilled 07/06/21. [...] 07/25/2019 Assessment & Plan (09/28/2024 4:09 PM ACTING INSTRUCTOR): Blood pressure stable and well controlled. Will continue on Labetalol and Losartan. Assessment & Plan (05/12/2023 2:05 PM CDT): Blood pressure showing improvement, no changes made today. Assessment & Plan (11/04/2022 2:48 PM ACTING INSTRUCTOR): Blood pressure is not well controlled today, [...] received. Assessment & Plan (08/07/2021 1:21 PM ACTING INSTRUCTOR): Losartan 100mg daily, labetalol 200mg bid. The [...] BP Assessment & Plan (10/25/2019 11:56 AM ACTING INSTRUCTOR): Elevation today likely due to increasing anxiety Assessment & Plan (09/22/2019 1:53 PM ACTING INSTRUCTOR): Will continue amlodipine 10mg daily. Will increase losartan from 50mg to 100mg daily. To check BP/log at home. Referral entered to [facility] by Blayne Plascencia NP at appt last week. (appt w/Dr Mendez 10/10/19) To take BP log to that appt once set. rtc in 1 mo if unable to get into [facility] prior to then for BP recheck. [...] received. Assessment & Plan (08/27/2019 1:34 PM ACTING INSTRUCTOR): Will place cardiology referral. He is not responding well to losartan or amlodipine nor has he responded well to the medications in the past. Advised to report to the ER for chest pain shortness of breath or any distress. Assessment & Plan (07/25/2019 11:49 AM ACTING INSTRUCTOR): He has not used his medication in over 2 months due to being out not been able to afford it. 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 Have an active lifestyle, strive for 30 [...] man. Assessment & Plan (07/25/2019 11:48 AM ACTING INSTRUCTOR): Patient is without insurance at this time. [...] vulnerable. Assessment & Plan (08/07/2021 1:21 PM ACTING INSTRUCTOR): Discussed and the patient refuses immunization today. Educated regarding the need to vaccinate for personal protection and to limit the viruses in the community to protect those most vulnerable. Assessment & Plan (09/22/2019 1:48 PM ACTING INSTRUCTOR): Discussed and the patient refuses immunization today. Educated regarding the need to vaccinate for personal protection and to limit the viruses in the community to protect those most vulnerable. Gastroesophageal reflux disease 04/24/2018 Assessment & Plan (09/28/2024 4:16 PM ACTING INSTRUCTOR): Stable and well controlled. Omeprazole will continue and monitor Hyperlipidemia 04/24/2018 Assessment & Plan (09/28/2024 4:11 PM ACTING INSTRUCTOR): LDL greatly improved and almost at goal at <70. Will continue on Atorvastatin. Will continue to monitor. Assessment & Plan (05/28/2024 4:22 PM CDT): Encourage compliance with atorvastin. Reviewed lifestyle recommendations Assessment & Plan (05/12/2023 2:06 PM CDT): Encouraged patient to take atorvastatin 40 mg daily. Assessment & Plan (11/04/2022 2:46 PM ACTING INSTRUCTOR): Patient is not currently taking atorvastatin. Will check labs today. Patient encouraged to take daily. Reviewed cardiovascular risk. Assessment & Plan (02/19/2022 11:07 AM CDT): 09/03/20 YX=257 HDL=55 QS=837 GEB=704 TC/HDL=5.0 RSOEFF=032 04/23/21 AX=574 HDL=41 UD=252 XXV=782 TC/HDL=6 TCJJFJ=283 T=364 05/08/21 OB=405 HDL=38 DW=446 TWK=096 TC/HDL=6.4 YOVIMV=109 08/07/21 AD=526 HDL=20 PU=593 WOQ=926 TC/HDL=13.6 LUJNNZ=949 09/28/21 VL=785 HDL=46 FX=942 JMT=858 TC/HDL=4 XFHZWR=681 12/02/21 HQ=651 HDL=44 HG=072 NHS=282 TC/HDL=6 OMTDQA=619 Atorvastatin 40mg daily. Continues to lose weight. [...] & Plan (11/10/2021 5:51 PM CDT): 09/03/20 VD=405 HDL=55 HO=627 EYP=509 TC/HDL=5.0 PRMJKN=793 04/23/21 IP=979 HDL=41 XR=926 WBY=626 TC/HDL=6 QQMDEF=774 T=364 05/08/21 SU=405 HDL=38 AK=201 VQE=785 TC/HDL=6.4 DDETYQ=978 08/07/21 WM=887 HDL=20 HQ=288 OFB=994 TC/HDL=13.6 FOCNFU=146 09/28/21 XG=674 HDL=46 SU=790 GQJ=745 TC/HDL=4 GEPMOQ=569 Atorvastatin 40mg daily. Has lost 26# on [...] flags. Assessment & Plan (08/07/2021 2:00 PM ACTING INSTRUCTOR): atorvastatin 20mg daily. Denies myalgias. 09/03/20 CR=693 HDL=55 ZO=948 SJA=104 TC/HDL=5.0 YACXRF=997 09/19/20 T=251 04/23/21 FL=166 HDL=41 IH=595 DJZ=975 TC/HDL=6 ZGSRQO=753 T=364 05/08/21 JJ=291 HDL=38 UK=913 KRY=812 TC/HDL=6.4 TNGEKS=732 08/07/21 RR=852 HDL=20 TA=050 PGW=728 TC/HDL=13.6 NHKYFY=589 Will double atorvastatin from 20mg to 40mg. [...] & Plan (05/08/2021 3:51 PM CDT): 04/16/20 FE=505 HDL=56 SO=354 FJA=516 TC/HDL=5 NVBVBG=165 09/03/20 QS=422 HDL=55 AD=062 UYR=522 TC/HDL=5.0 IWJIAS=969 04/23/21 KC=350 HDL=41 XB=590 DBZ=205 TC/HDL=6 GTLPOU=295 T=364 05/08/21 QA=332 HDL=38 DS=152 LCM=671 TC/HDL=6.4 CYRMAJ=715 Atorvastatin 20mg daily sent. Reviewed med SE & scheduling. Stressed need for diet/activity changes. Discussed healthier options of frozen meals, better snacks. Will recheck lipid panel in 3 mos. Assessment & Plan (02/01/2021 4:00 PM CDT): 04/16/20 PG=633 HDL=56 GD=048 BKP=953 TC/HDL=5 09/03/20 YV=768 HDL=55 MJ=743 ZJL=631 TC/HDL=5.0 Lipid panel ordered; will call w/results when received. Reviewed diet/exercise recommendations. Discussed need for statin if TC/LDL remains elevated. Assessment & Plan (02/12/2020 3:55 PM CDT): 09/20/19 CD=893 HDL=55 TG=77 BRP=722 TC/HDL=4.4 Lipid panel sent to [facility]. Will be going to get labs [...] 02/19/2022 Assessment & Plan (08/07/2021 1:51 PM ACTING INSTRUCTOR): H/o palpitations for many years. Had holter monitor in his 20s. Denies excess caffeine intake. No CP/SOB. holter monitor ordered. Will contact w/results once rec'd. Acute nasopharyngitis 08/07/20212021 Assessment & Plan (08/07/2021 1:58 PM ACTING INSTRUCTOR): Discussed otc mucinex plain & coricidin HBP. Discussed saline rinse. Will call if no improvement in 1 week w/otc medications. Class 2 severe obesity due t o excess calories with serious comorbidity and body mass index (BMI) of 37.0 to 37.9 in adult 05/08/2021 2 Assessment & Plan (08/07/2021 1:19 PM ACTING INSTRUCTOR): Reviewed need to lose weight, reviewed health benefits. Reviewed recommendations for daily intake & activity 20-30 minutes/day. Discussed healthy diet and importance of regular physical activity. Assessment & Plan (05/08/2021 3:48 PM CDT): Reviewed need to lose weight, reviewed health benefits. Reviewed recommendations for daily intake & activity 20-30 minutes/day. Discussed healthy diet and importance of regular physical activity. Has gym membership at [employer]; not using currently. Subareolar lump of left breast 02/01/2021 02/19/2022 Assessment & Plan (02/01/2021 4:15 PM CDT): L breast US ordered. Aware to call [facility] to schedule. Contact info given. Will contact w/results once rec'd. Aware to check his [employer] account for results. Hypogonadism male 01/30/2021 05/08/2021 [...] importance of regular physical activity. Has started [employer] service. 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 [...] cessation. Discussed different types of medications & thzf-jsn-bxtoyqs aides to help with cessation. Assessment & Plan (02/12/2020 3:56 PM CDT): Precontemplative. Encouraged complete smoking cessation. Discussed different types of medications & ekbi-hwp-zefpahi aides to help with cessation. Assessment & Plan (09/22/2019 1:53 PM ACTING INSTRUCTOR): Precontemplative. Encouraged complete smoking cessation. Discussed different types of medications & tihz-hdj-uuiqmqn aides to help with cessation. Encounter for screening for lipoid disorders 0 12/05/2020 Assessment & Plan (09/22/2019 1:51 PM ACTING INSTRUCTOR): 09/20/19 PN=880 HDL=55 TG=77 WXU=958 TC/HDL=4.4. Copy of results & written explanation/parameters given to Mr Marcelo. Need to greatly improve diet; LDL & cholesterol high. Labs given to repeat lipid panel in 3 mos. BMI 33.0-33.9,adult 09/20/2019 02/12/20 Assessment & Plan (09/22/2019 1:51 PM ACTING INSTRUCTOR): Reviewed need to lose weight, reviewed health benefits. Reviewed recommendations for daily intake & activity 20-30 minutes/day. Discussed healthy diet and importance of regular physical activity. Bronchitis 09/20/2019 12/05/2020 Assessment & Plan (09/22/2019 1:52 PM ACTING INSTRUCTOR): Zpack & medrol dose pack sent. To p/u expectorant (ie mucinex) and antihistamine (ie pat/claritin/zyrtec). Reviewed med Ses & scheduling. Aware to complete antibiotic & medrol. Reviewed red flags; what would warrant rtc or ED for further eval. Push fluids. Stressed need to STOP smoking. Sore throat 09/20/2019 12/05/2020 Assessment & Plan (09/22/2019 1:53 PM ACTING INSTRUCTOR): NEG for strep at office. Gargle with [...] 09/22/2019 Assessment & Plan (08/27/2019 1:37 PM ACTING INSTRUCTOR): Well controlled with current medication Assessment & Plan (07/25/2019 11:49 AM ACTING INSTRUCTOR): Stable on current medication. Will continue current prescribed therapy. Encounters Date Type Department Care Team Description 01/15/2025 1:45 PM CDT - 01/15/2025 2:00 PM CDT Surgery [facility] Digestive [facility] [address] [place] [address] Shital Luis MD ESOPHAGOGASTRODUODENOSCOPY 01/15/2025 1:00 PM CDT Anesthesia Event [facility] [address] [place] [address] Camryn Palomo MD 01/13/2025 2:59 AM CDT - 01/15/2025 3:25 PM CDT Hospital Encounter [facility] Acute Medicine [address] [place] [id number] Aydin Chaudhary MD [facility], MD Anca Stevenson Jelena, MD Sargsyan, Narine, MD Hematemesis with nausea (Primary Dx); Alcohol use disorder; BLAS (acute kidney injury); Gastroesophageal reflux disease, unspecified whether esophagitis present Discharge Disposition: Discharge to home or self care 01/13/2025 Documentation [facility] Warm Hand Off Program [address] [place] [address] Laura Leon from Last 3 Months Immunizations [...] on file Legal Sex Male 3:02 AM ACTING INSTRUCTOR Gender Identity Male 01/19/2022 9:29 PM CDT [...] <65 (1 of 2 - PCV) 2002 HPV Vaccines (1 - 3-dose SCD M series) 2010 Influenza Vaccine (#1) 2025 07/19/2006 Depression Screening 09/28/2025 09/28/2024, 12/23/2023, 02/11/2023, Additional history exists Regular Well Visit/Exam 18-64 09/28/2025 09/28/2024 DTaP/Tdap/Td Vaccine (5 - Td or Tdap) 03/31/2027 03/31/2017, 03/31/2017, 03/31/2017, Additional history exists Varicella Vaccines Discontinued Procedures Procedure Name Priority [...] Luis MD - 01/15/2025 12:16 PM CDT [facility] Patient Name: Roberth Marcelo Procedure Date: 01/15/2025 12:16 PM Date of : 1985 Admit Type: Inpatient Age: 39 Gender: Male Attending MD: Shital Luis M.D. Room: [facility] ENDOSCOPY ROOM 1 Note Status: Finalized Patient Profile: This is a 39 year old male. Patient admitted with nausea vomiting. Noted the steatohepatitis likelyset alcohol use. History of alcohol overdose. Procedure: Upper GI endoscopy Indications: Hematemesis Referring MD: Ernesto De La Rosa M.D. Providers: Shital Luis M.D. Impression: - Small hiatal hernia. - Jxko-bx-cldmgwkg erosive esophagitis. - No specimens collected. Recommendation: - Use Protonix (pantoprazole) 40 mg PO BID for 3 months then once daily for 6 months. - Follow an antireflux regimen. Avoid alcohol use.Use kbyn-zrn-ocwnbii antacid medications as needed. - Reglan 10 [...] passed under direct vision. The Endoscope [id number] was introduced through the mouth, and advanced [...] 12:16 PM Procedure Code(s): --- Professional --- 83069, Esophagogastroduodenoscopy, flexible, transoral; diagnostic, including collection of specimen(s) by brushing or washing, when performed (separate procedure) Diagnosis Code(s): --- Professional --- K44.9, Diaphragmatic hernia without obstruction or gangrene K92.0, Hematemesis K21.00, Gastro-esophageal reflux disease with esophagitis, without bleeding CPT copyright 2020 [employer]. All rights reserved. The codes documented in this report are preliminary and upon pie crust mixer reviewmay be revised to meet current compliance requirements. Recognized by the [employer] for promoting quality [...] MD LAB BLOOD ORDERABLES Final Res ult [facility] Department [place] [address] * Differential, auto (01/15/2025 3:57 AM CDT) Pathologist [facility] Neutrophil abs 4.09 1.50 - 6.50 K/cumm Imm gran abs 0.02 0.00 - 0.10 K/cumm [facility] ([place]) Lymphocyte abs 2.71 0.80 - 3.30 K/cumm [facility] ([place]) Monocyte abs 0.44 0.20 - 0.80 K/cumm [facility] ([place]) Eosinophil abs 0.07 0.00 - 0.50 K/cumm [facility] ([place]) Basophil abs 0.05 0.00 - 0.10 K/cumm [facility] ([place]) Neutrophil pct 55.4 % [facility] ([place]) Comment: Interpretive Data Percent cell count reference [...] revised on 2017. Basophil pct 0.7 % [facility] ([place]) Comment: Interpretive Data Percent cell count reference ranges are not reported, since discordance with absolute values may lead to misinterpretation of CBC data. Current Interpretive Data was last revised on 2017. Blood 01/15/2025 3:57 AM CDT 01/15/2025 5:31 AM CDT us Tiffanie March MD LAB BLOOD ORDERABLES Final Res ult [facility] ([place]) [facility] Department [place] [address] * (ABNORMAL) CBC with auto differential (01/15/2025 3:57 AM CDT) WBC 7.38 3.80 - 9.90 K/cumm Hgb 13.8 13.0 - 17.5 g/dL [facility] ([place]) Hct 39.0 38.9 - 50.3 % [facility] Plt 185 150 - 400 K/cumm [facility] MPV 10.4 9.1 - 12.3 fL [facility] ([place]) RBC 4.07(L) 4.30 - 5.80 M/cumm [facility] MCV 95.8 81.3 - 96.4 fL [facility] ([place]) MCH 33.9(H) 27.1 - 33.3 pg [facility] MCHC 35.4 32.3 - 35.7 g/dL [facility] RDW CV 13.1 11.1 - 14.9 % [facility] RDW SD 45.9 35.7 - 48.1 fL [facility]) NRBC abs 0.00 0.00 - 0.01 K/cumm [facility]) Blood 01/15/2025 3:57 AM CDT 01/15/2025 5:31 AM CDT us Shital Luis MD LAB BLOOD ORDERABLES Final Result [facility] [address] [facility] Department [place] [address] * Comprehensive metabolic panel (01/15/2025 3:57 AM CDT) Sodium 139 135 - 145 mmol/L Potassium, pl 3.6 3.3 - 4.9 mmol/L [facility]) Chloride 100 97 - 110 mmol/L [facility]) CO2 25 22 - 32 mmol/L [facility] Anion gap 14 2 - 15 mmol/L [facility] BUN 10 6 - 25 mg/dL [facility]) Creatinine 1.03 0.80 - 1.30 mg/dL [facility] ([place] Comment:Icteric sample, test results may be affected. Glucose 99 70 - 199 mg/dL [facility] ([place]) Comment: Interpretive Data Fasting glucose [...] ORDERABLES Final Result [facility] ([place] Department [place] [address] * eGFR (01/14/2025 8:59 AM CDT) eGFR [...] MD LAB BLOOD ORDERABLES Final Res ult [facility] ([place]) [facility] Department [place] [address] * Comprehensive metabolic panel (01/14/2025 8:59 AM [...] ORDERABLES Final Result [facility] Department [place] [address] * eGFR (01/14/2025 3:58 AM CDT) eGFR [...] CDT 01/14/2025 5:55 AM CDT us Tiffanie Marhc MD LAB BLOOD ORDERABLES Final Res ult [facility] ([place] Department [place] [address] * (ABNORMAL) Basic metabolic panel (01/14/2025 3:58 AM CDT) Sodium 138 135 - 145 mmol/L Potassium, pl 3.8 3.3 - 4.9 mmol/L [facility]) Chloride 99 97 - 110 mmol/L [facility] CO2 22 22 - 32 mmol/L [facility] Anion gap 16(H) 2 - 15 mmol/L [facility] BUN 12 6 - 25 mg/dL [facility]) Creatinine 1.14 0.80 - 1.30 mg/dL [facility] Glucose 89 70 - 199 mg/dL [facility] Comment: Interpretive Data Fasting glucose [...] 2022. Calcium 8.8 8.5 - 10.3 mg/dL [facility] Blood 01/14/2025 3:58 AM CDT 01/14/2025 5:55 AM CDT us Tiffanie March MD LAB BLOOD ORDERABLES Final Res ult [facility] ([place] [place] [address] * (ABNORMAL) Hemoglobin and hematocrit (01/14/2025 3:54 AM CDT) Hgb 13.4 13.0 - 17.5 g/dL Hct 37.8(L) 38.9 - 50.3 % [facility]) Blood 01/14/2025 3:54 AM CDT 01/14/2025 4:43 AM CDT us Tiffanie March MD LAB BLOOD ORDERABLES Final Res ult Performing Organization Address [facility]/ZIP Co de Phone Number [facility] ([place] 1 [facility] [place] [address] * ABO / Rh Confirmation Testing (01/13/2025 11:59 AM CDT) ABO/Rh Confirmation O Positive [facility] Blood 01/13/2025 11:5 9 AM CDT 01/13/2025 12:03 PM CDT us Aydin Chaudhary MD LAB BLOOD ORDERABLES Final Re sult Performing Organization Address [facility] Co de Phone Number [facility] [address] [facility] [place] [address] [facility] * Hemoglobin and hematocrit (01/13/2025 11:59 AM CDT) Hgb 13.6 13.0 - 17.5 g/dL Hct 39.1 38.9 - 50.3 % [facility]) Blood 01/13/2025 11:5 9 AM CDT 01/13/2025 12:03 PM CDT us Prabhjot Taveras MD LAB BLOOD ORDERABLES Fi nal Result Performing Organization Address [facility] Co de Phone Number [facility] 1 [facility] [place] [address] * CT Abdomen Pelvis WO Contrast (01/13/2025 [...] by Lilian Aly M.D. SN: Report ID: [id number] Reading Location: [id number] Procedure Note Lilian Aly MD - 01/13/2025 [...] by Lilian Aly M.D. SN: Report ID: [id number] Reading Location: [id number] us Aydin Chaudhary MD IMG CT PROCEDURES [...] Lilian Aly M.D. SN: SN Report ID: [id number] Reading Location: [id number] Procedure Note Lilian Aly MD - 01/13/2025 [...] Lilian Aly M.D. SN: SN Report ID: [id number] Reading Location: [id number] Aydin Chaudhary MD IMG XR PROCEDURES Final [...] tendency for uric acid stone formation. Source: [facility] Current Interpretive Data was last revised [...] 3:37 AM CDT 01/13/2025 3:43 AM CDT us Aydin Chaudhary MD LAB MICROBIOLOGY - GENERAL OR DERABLES Final Result [facility] ([place] Department [place] [address] * (ABNORMAL) Drugs of Abuse Screen, Urine [...] Not Detected CutOff 5 ng/mL [facility] ([facility]) Comment: Interpretive Data - Fentanyl: Samples containing [...] used for Pain Management purposes. us Aydin Chauhdary MD LAB URINE ORDERABLES Final Re sult [facility] ([place] Department [place] [address] * Osmolality, urine (01/13/2025 3:37 AM CDT) Osmo, ur 355 mOsm/kg Comment:Testing performed by : [facility], [address] [place] [address]., [id number] Urine 01/13/2025 3:37 AM CDT 01/13/2025 2:00 PM CDT us Aydin Chaudhary MD LAB URINE ORDERABLES Final Re sult Performing Organization Address City/[facility]/ZIP Co de Phone Number [facility] ([place]) [address] [place] [address] [place] [address] * (ABNORMAL) Osmolality, blood (01/13/2025 3:37 AM CDT) Osmo 384(C) 275 - 300 mOsm/kg Comment: reviewed Testing performed by: [facility], [address] [place] [address]., [id number] Blood 01/13/2025 3:37 AM CDT 01/13/2025 2:01 PM CDT us Aydin Chaudhary MD LAB BLOOD ORDERABLES Final Re sult Performing Organization Address [facility] Co de Phone Number [facility] 1 [facility] [place] [address] * Lipase (01/13/2025 3:37 AM CDT) Lipase 26 10 - 99 Units/L Blood 01/13/2025 3:37 AM CDT 01/13/2025 5:25 AM CDT us Aydin Chaudhary MD LAB BLOOD ORDERABLES Final Re sult Performing Organization Address City/[facility]/ZIP Co de Phone Number [facility] ([place]) [address] [place] [address] [place] [address] * (ABNORMAL) eGFR (01/13/2025 2:57 AM CDT) [...] MD LAB BLOOD ORDERABLES Final Re sult [facility] ([place] [address] [facility] [place] [address] * (ABNORMAL) Differential, auto (01/13/2025 [...] revised on 2017. Monocyte pct 6.3 % [facility] Comment: Interpretive Data [...] revised on 2017. Basophil pct 1.1 % [facility] Comment: Interpretive Data Percent cell count reference ranges are not reported, since discordance with absolute values may lead to misinterpretation of CBC data. Current Interpretive Data was last revised on 2017. Blood 01/13/2025 2:57 AM CDT 01/13/2025 3:08 AM CDT us Aydin Chaudhary MD LAB BLOOD ORDERABLES Final Re sult [facility] ([place] [place] [address] * (ABNORMAL) CBC with auto [...] ([place]) MCH 33.7(H) 27.1 - 33.3 pg [facility] ([place]) MCHC 35.1 32.3 - 35.7 [...] Final Re sult [facility] ([place]) [address] [place] [address] * ABO/Rh (01/13/2025 2:57 AM CDT) ABO/Rh O Positive Blood 01/13/2025 2:57 AM CDT 01/13/2025 3:18 AM CDT Narrative [facility] - 01/13/2025 3:47 AM CDT Has the patient had Daratumumab or Isatuximab in the past 6 months?->Unknown us Aydin Chaudhary MD LAB BLOOD BANK TEST ORDERABLE S Final Result [facility] ([place]) [address] [place] [address] * aPTT (01/13/2025 2:57 AM CDT) aPTT 33 28 - 38 sec [facility]) Comment: Interpretive Data Heparin therapeutic range: 66.0 - 100.0 seconds. Range based on correlation with therapeutic heparin activity range of 0.3 - 0.7 Units/mL. Current interpretive data was last revised on 2023. Blood 01/13/2025 2:57 AM CDT 01/13/2025 3:18 AM CDT Aydin Chaudhary MD LAB BLOOD ORDERABLES Final Re sult [facility] [address] [place] [address] * Protime-INR (01/13/2025 2:57 AM CDT) PT 11.3 9.7 - 13.0 sec [facility] INR 1.05 0.90 - 1.20 [facility] [facility] Comment: Interpretive data Oral anticoagulant therapeutic ranges: Venous thromboembolism prophylaxis or treatment: 2.0-3.0 CARDIOLOGY Standard range: 2.0-3.0 High-intensity range: 2.5-3.5 Refer to indication-specific guidelines for appropriate target ranges for prosthetic heart valve replacement. Current interpretive data was last revised on 2019. Blood 01/13/2025 2:57 AM CDT 01/13/2025 3:18 AM CDT Aydin Chaudhary MD LAB BLOOD ORDERABLES Final Re sult [facility] [address] [place] [address] * Antibody screen (01/13/2025 2:57 AM CDT) Twin, indirect, Gel Interpretation Negative [facility] Blood 01/13/2025 2:57 AM CDT 01/13/2025 3:18 AM CDT Narrative [facility] ([facility]) - 01/13/2025 4:20 AM CDT Has the patient had Daratumumab or Isatuximab in the past 6 months?->Unknown us Aydin Chaudhary MD LAB BLOOD BANK TEST ORDERABLE S Final Result Performing Organization Address [facility] Co de Phone Number [facility] ([place]) [address] [facility] [place] [address] * (ABNORMAL) Ethanol (01/13/2025 2:57 AM CDT) Ethanol 329(C) <=10 mg/dL Comment: Critical Result called by [email or web address] at 2025-01-13 04:11:29. Result Read Back by Fadumo Anaya ED Interpretive Data Legal limit of intoxication > or = 80 mg/dL Levels > or = 400 mg/dL are potentially TOXIC. Current interpretive data was last revised on 2018. Blood 01/13/2025 2:57 AM CDT 01/13/2025 3:50 AM CDT us Aydin Chaudhary MD LAB BLOOD ORDERABLES Final Re sult Performing Organization Address [facility] Co de Phone Number [facility] ([place]) [address] [place] [address] * (ABNORMAL) Comprehensive metabolic panel (01/13/2025 2:57 AM CDT) Sodium 144 135 - 145 mmol/L Potassium, pl 4.2 3.3 - 4.9 mmol/L [facility] ([place]) Chloride 103 97 - 110 mmol/L [facility]) CO2 28 22 - 32 mmol/L [facility] ([place]) Anion gap 14 2 - 15 mmol/L [facility] ([place] BUN 17 6 - 25 mg/dL [facility] ([place]) Creatinine 1.61(H) 0.80 - 1.30 mg/dL [facility] ([place] Glucose 128 70 - 199 mg/dL [facility] ([place]) Comment: Interpretive Data Fasting glucose [...] Final Re sult [facility] ([place]) [address] [facility] [place] [address] from Last 3 Months Insurance [facility] Advance Directives For more information, please contact: [phone] * Full Code (Latest Code Status on File) Date Activated Date Inactivated Comments 01/15/2025 12:06 PM 01/15/2025 7:30 PM * Full Code Date Activated Date Inactivated Comments 01/13/2025 6:19 AM 01/15/2025 12:06 PM Care Teams Wound Care Nurse Relationship Specialty Start Date End Date Ernesto De La [place] [address] PCP - General Family Medicine 09/20/19
--- OUTSIDE RECORDS SUMMARY | 2025-03-21 04:22 | XMS_ITS | Clinical Summary ---
Author Organization [facility] Address [address] [facility] [address] [place] [address] Phone Care Team Providers Care Pressure Supervisor Name Role Phone Deloris Sheppard Primary Care Provider [phone] Allergies No known active allergies Medications HYDROCHLOROTHIA [...] age to complete this topic Insurance [place]ID [place] Care Teams Pressure Supervisor Relationship Specialty Start Date End Date Deloris Sheppard PA [address] [address] PCP - General Adult Medicine 06/22/18
--- OUTSIDE RECORDS SUMMARY | 2025-03-21 04:22 | XMS_ITS | Referral Summary ---
Author Organization [facility] Address [address] [place] [address] Care Team Providers Care Public Speaking Professor Name Role Phone Ernesto De La Rosa MD Primary Care Provider [phone] Encounters Date Type Department Care Team Description 01/15/2025 1:00 PM CDT Anesthesia Event [facility] 1 [place] [address] Camryn Palomo MD 01/15/2025 1:45 PM CDT - 01/15/2025 2:00 PM CDT Surgery [facility] 1 [place] [address] Shital Luis MD ESOPHAGOGASTRODUODENOSCOPY 01/13/2025 2:59 AM CDT - 01/15/2025 3:25 PM CDT Hospital Encounter [facility] 1 [place] [address] Aydin Chaudhary MD Petters, MD Anca Stevenson Jelena, MD Sargsyan, Narine, MD Hematemesis with nausea (Primary Dx); Alcohol use disorder; BLAS (acute kidney injury); Gastroesophageal reflux disease, unspecified whether esophagitis present Discharge Disposition: Discharge to home or self care 01/13/2025 Documentation [facility] 1 [place], [place] [phone] Laura Leon from Last 3 Months Allergies [...] 02/16/2022 Assessment & Plan (09/28/2024 4:09 PM POWER TONG OPERATOR): Encouraged heart healthy diet and lifestyle. Advised 150 min/week of aerobic exercise. Assessment & Plan (11/04/2022 2:40 PM POWER TONG OPERATOR): Discussed healthy diet and importance of regular [...] High 26 R Comment: Testing performed by: [facility], [address] [place] [address], [place]., [address] AST 10 - 50 Units/L 148 High 78 High CM 124 High 71 High LFTs elevated last 3 draws. Will recheck. Discussed possible statin change. Discussed avoiding tylenol & alcohol as he is able. Refused pneumococcal vaccination 02/16/2022 Hypogonadism in male 01/30/2021 Assessment & Plan (09/28/2024 4:12 PM POWER TONG OPERATOR): Stable and well controlled. Will continue with testosterone and monitoring Assessment & Plan (05/12/2023 2:06 PM CDT): Continue testosterone 100 mg weekly Assessment & Plan (11/04/2022 2:41 PM POWER TONG OPERATOR): Has been out of medication for the [...] 10/27/21 Assessment & Plan (08/07/2021 1:18 PM POWER TONG OPERATOR): 04/23/21 t=364, had been 251 08/2021. Continues [...] 09/19/2019 Assessment & Plan (09/28/2024 4:12 PM POWER TONG OPERATOR): Stable and well controlled. Will continue on Klonopin and monitoring. Assessment & Plan (11/04/2022 2:48 PM POWER TONG OPERATOR): Taking clonazepam p.r.n. with good response. Assessment [...] flags. Assessment & Plan (08/07/2021 1:20 PM POWER TONG OPERATOR): Clonazepam 0.5mg tid prn #90 refilled 07/06/21. [...] 07/25/2019 Assessment & Plan (09/28/2024 4:09 PM POWER TONG OPERATOR): Blood pressure stable and well controlled. Will continue on Labetalol and Losartan. Assessment & Plan (05/12/2023 2:05 PM CDT): Blood pressure showing improvement, no changes made today. Assessment & Plan (11/04/2022 2:48 PM POWER TONG OPERATOR): Blood pressure is not well controlled today, [...] received. Assessment & Plan (08/07/2021 1:21 PM POWER TONG OPERATOR): Losartan 100mg daily, labetalol 200mg bid. The [...] BP Assessment & Plan (10/25/2019 11:56 AM POWER TONG OPERATOR): Elevation today likely due to increasing anxiety Assessment & Plan (09/22/2019 1:53 PM POWER TONG OPERATOR): Will continue amlodipine 10mg daily. Will increase losartan from 50mg to 100mg daily. To check BP/log at home. Referral entered to [facility] by Blayne Plascencia NP at appt last week. (appt w/Dr Mendez 10/10/19) To take BP log to that appt once set. rtc in 1 mo if unable to get into [facility] prior to then for BP [...] received. Assessment & Plan (08/27/2019 1:34 PM POWER TONG OPERATOR): Will place cardiology referral. He is not responding well to losartan or amlodipine nor has he responded well to the medications in the past. Advised to report to the ER for chest pain shortness of breath or any distress. Assessment & Plan (07/25/2019 11:49 AM POWER TONG OPERATOR): He has not used his medication in over 2 months due to being out not been able to afford it. Will restart medication at current dosages and follow up in 30 days Annual physical exam 07/25/2019 Assessment & Plan (09/28/2024 4:13 PM POWER TONG OPERATOR): In regard to health maintenance, Colonoscopy- scheduled [...] healthier, we can set up appointment with logging engineer/shop blacksmith. Have an active lifestyle, strive for 30 [...] man. Assessment & Plan (07/25/2019 11:48 AM POWER TONG OPERATOR): Patient is without insurance at this time. [...] vulnerable. Assessment & Plan (08/07/2021 1:21 PM POWER TONG OPERATOR): Discussed and the patient refuses immunization today. Educated regarding the need to vaccinate for personal protection and to limit the viruses in the community to protect those most vulnerable. Assessment & Plan (09/22/2019 1:48 PM POWER TONG OPERATOR): Discussed and the patient refuses immunization today. Educated regarding the need to vaccinate for personal protection and to limit the viruses in the community to protect those most vulnerable. Gastroesophageal reflux disease 04/24/2018 Assessment & Plan (09/28/2024 4:16 PM POWER TONG OPERATOR): Stable and well controlled. Omeprazole will continue and monitor Hyperlipidemia 04/24/2018 Assessment & Plan (09/28/2024 4:11 PM POWER TONG OPERATOR): LDL greatly improved and almost at goal at <70. Will continue on Atorvastatin. Will continue to monitor. Assessment & Plan (05/28/2024 4:22 PM CDT): Encourage compliance with atorvastin. Reviewed lifestyle recommendations Assessment & Plan (05/12/2023 2:06 PM CDT): Encouraged patient to take atorvastatin 40 mg daily. Assessment & Plan (11/04/2022 2:46 PM POWER TONG OPERATOR): Patient is not currently taking atorvastatin. Will check labs today. Patient encouraged to take daily. Reviewed cardiovascular risk. Assessment & Plan (02/19/2022 11:07 AM CDT): 09/03/20 SF=021 HDL=55 NN=443 FLB=732 TC/HDL=5.0 WVYNPH=191 04/23/21 BM=053 HDL=41 DM=881 VGK=793 TC/HDL=6 KAYTYN=551 T=364 05/08/21 TY=699 HDL=38 EC=539 PSA=193 TC/HDL=6.4 YIRTPI=298 08/07/21 SY=292 HDL=20 XH=900 YLS=524 TC/HDL=13.6 UUQNPI=508 09/28/21 AY=466 HDL=46 UR=167 ZYT=533 TC/HDL=4 HUDKMA=079 12/02/21 DV=597 HDL=44 ZW=411 PAC=453 TC/HDL=6 MESNWW=112 Atorvastatin 40mg daily. Continues to lose weight. [...] & Plan (11/10/2021 5:51 PM CDT): 09/03/20 EJ=460 HDL=55 IL=196 IGJ=751 TC/HDL=5.0 XTXPGW=419 04/23/21 DP=702 HDL=41 OQ=172 MEP=629 TC/HDL=6 RQXCRT=543 T=364 05/08/21 UE=228 HDL=38 DH=468 QPB=966 TC/HDL=6.4 WSYPKR=263 08/07/21 UY=978 HDL=20 WT=512 QUW=554 TC/HDL=13.6 RBMGSC=301 09/28/21 XT=085 HDL=46 UW=702 AHY=440 TC/HDL=4 JWVESG=124 Atorvastatin 40mg daily. Has lost 26# on [...] flags. Assessment & Plan (08/07/2021 2:00 PM POWER TONG OPERATOR): atorvastatin 20mg daily. Denies myalgias. 09/03/20 GM=813 HDL=55 NN=957 QVP=559 TC/HDL=5.0 EYBDCR=396 09/19/20 T=251 04/23/21 OC=592 HDL=41 IR=274 FKG=142 TC/HDL=6 NWLHTS=012 T=364 05/08/21 QV=243 HDL=38 ZY=538 JMJ=479 TC/HDL=6.4 FXTPNM=097 08/07/21 SO=715 HDL=20 TF=322 ZKT=538 TC/HDL=13.6 XLVZLT=493 Will double atorvastatin from 20mg to 40mg. [...] & Plan (05/08/2021 3:51 PM CDT): 04/16/20 DC=031 HDL=56 LG=499 AXA=837 TC/HDL=5 CBEXSJ=339 09/03/20 FB=532 HDL=55 TY=177 MCN=368 TC/HDL=5.0 QRKMWT=176 04/23/21 VK=953 HDL=41 QT=727 VZL=845 TC/HDL=6 YOGYSZ=883 T=364 05/08/21 EY=390 HDL=38 CI=038 AFG=268 TC/HDL=6.4 NFMNYH=878 Atorvastatin 20mg daily sent. Reviewed med SE & scheduling. Stressed need for diet/activity changes. Discussed healthier options of frozen meals, better snacks. Will recheck lipid panel in 3 mos. Assessment & Plan (02/01/2021 4:00 PM CDT): 04/16/20 DE=375 HDL=56 VW=520 ESD=633 TC/HDL=5 09/03/20 LW=211 HDL=55 SD=908 RUG=132 TC/HDL=5.0 Lipid panel ordered; will call w/results when received. Reviewed diet/exercise recommendations. Discussed need for statin if TC/LDL remains elevated. Assessment & Plan (02/12/2020 3:55 PM CDT): 09/20/19 DG=688 HDL=55 TG=77 IEQ=850 TC/HDL=4.4 Lipid panel sent to [facility]. Will be going to get [...] 02/19/2022 Assessment & Plan (08/07/2021 1:51 PM POWER TONG OPERATOR): H/o palpitations for many years. Had holter monitor in his 20s. Denies excess caffeine intake. No CP/SOB. holter monitor ordered. Will contact w/results once rec'd. Acute nasopharyngitis 08/07/20212021 Assessment & Plan (08/07/2021 1:58 PM POWER TONG OPERATOR): Discussed otc mucinex plain & coricidin HBP. Discussed saline rinse. Will call if no improvement in 1 week w/otc medications. Class 2 severe obesity due t o excess calories with serious comorbidity and body mass index (BMI) of 37.0 to 37.9 in adult 05/08/2021 Assessment & Plan (08/07/2021 1:19 PM POWER TONG OPERATOR): Reviewed need to lose weight, reviewed health benefits. Reviewed recommendations for daily intake & activity 20-30 minutes/day. Discussed healthy diet and importance of regular physical activity. Assessment & Plan (05/08/2021 3:48 PM CDT): Reviewed need to lose weight, reviewed health benefits. Reviewed recommendations for daily intake & activity 20-30 minutes/day. Discussed healthy diet and importance of regular physical activity. Has gym membership at [employer]; not using currently. Subareolar lump of left [...] cessation. Discussed different types of medications & imca-tuu-pasuuae aides to help with cessation. Assessment & Plan (02/12/2020 3:56 PM CDT): Precontemplative. Encouraged complete smoking cessation. Discussed different types of medications & grec-cqt-cxbnzsu aides to help with cessation. Assessment & Plan (09/22/2019 1:53 PM POWER TONG OPERATOR): Precontemplative. Encouraged complete smoking cessation. Discussed different types of medications & jyce-fwe-ouqyaue aides to help with cessation. Encounter for screening for lipoid disorders 0 12/05/2020 Assessment & Plan (09/22/2019 1:51 PM POWER TONG OPERATOR): 09/20/19 TQ=285 HDL=55 TG=77 GNT=828 TC/HDL=4.4. Copy of results & written explanation/parameters given to Mr Marcelo. Need to greatly improve diet; LDL & cholesterol high. Labs given to repeat lipid panel in 3 mos. BMI 33.0-33.9,adult 09/20/2019 02/12/20 Assessment & Plan (09/22/2019 1:51 PM POWER TONG OPERATOR): Reviewed need to lose weight, reviewed health benefits. Reviewed recommendations for daily intake & activity 20-30 minutes/day. Discussed healthy diet and importance of regular physical activity. Bronchitis 09/20/2019 12/05/2020 Assessment & Plan (09/22/2019 1:52 PM POWER TONG OPERATOR): Zpack & medrol dose pack sent. To p/u expectorant (ie mucinex) and antihistamine (ie pat/claritin/zyrtec). Reviewed med Ses & scheduling. Aware to complete antibiotic & medrol. Reviewed red flags; what would warrant rtc or ED for further eval. Push fluids. Stressed need to STOP smoking. Sore throat 09/20/2019 12/05/2020 Assessment & Plan (09/22/2019 1:53 PM POWER TONG OPERATOR): NEG for strep at office. Gargle with [...] 09/22/2019 Assessment & Plan (08/27/2019 1:37 PM POWER TONG OPERATOR): Well controlled with current medication Assessment & Plan (07/25/2019 11:49 AM POWER TONG OPERATOR): Stable on current medication. Will continue current [...] on file Legal Sex Male 3:02 AM POWER TONG OPERATOR Gender Identity Male 01/19/2022 9:29 PM CDT [...] Luis MD - 01/15/2025 12:16 PM CDT [facility] Patient Name: Roberth Marcelo Procedure Date: 01/15/2025 12:16 PM Date of : 1985 Admit Type: Inpatient Age: 39 Gender: Male Attending MD: Shital Luis M.D. Room: [facility] ENDOSCOPY ROOM 1 Note Status: Finalized Patient Profile: This is a 39 year old male. Patient admitted with nausea vomiting. Noted the steatohepatitis likelyset alcohol use. History of alcohol overdose. Procedure: Upper GI endoscopy Indications: Hematemesis Referring MD: Ernesto De La Rosa M.D. Providers: Shital Luis M.D. Impression: - Small hiatal hernia. - Qviz-rk-arfegagf erosive esophagitis. - No specimens collected. Recommendation: - Use Protonix (pantoprazole) 40 mg PO BID for 3 months then once daily for 6 months. - Follow an antireflux regimen. Avoid alcohol use.Use bjwv-zce-igsxbxv antacid medications as needed. - Reglan 10 [...] passed under direct vision. The Endoscope [id number] was introduced through the mouth, and advanced [...] 12:16 PM Procedure Code(s): --- Professional --- 13710, Esophagogastroduodenoscopy, flexible, transoral; diagnostic, including collection of specimen(s) by brushing or washing, when performed (separate procedure) Diagnosis Code(s): --- Professional --- K44.9, Diaphragmatic hernia without obstruction or gangrene K92.0, Hematemesis K21.00, Gastro-esophageal reflux disease with esophagitis, without bleeding CPT copyright 2020 [employer]. All rights reserved. The codes documented in this report are preliminary and upon surgical coder reviewmay be revised to meet current compliance requirements. Recognized by the [employer] for promoting quality [...] BLOOD ORDERABLES Final Res ult [facility] ([place]) 1 [facility] Department [place] [address] * Differential, auto (01/15/2025 3:57 AM CDT) Neutrophil abs 4.09 1.50 - 6.50 K/cumm Imm gran abs 0.02 0.00 - 0.10 K/cumm [facility] ([place]) Lymphocyte abs 2.71 0.80 - 3.30 K/cumm [facility] ([place]) Monocyte abs 0.44 0.20 - 0.80 K/cumm [facility] ([place]) Eosinophil abs 0.07 0.00 - 0.50 K/cumm [facility] ([place]) Basophil abs 0.05 0.00 - 0.10 K/cumm [facility] ([place]) Neutrophil pct 55.4 % [facility] ([place]) Comment: Interpretive Data Percent cell count reference ranges are not reported, since discordance with absolute values may lead to misinterpretation of CBC data. Current Interpretive Data was last revised on 2017. Imm gran pct 0.3 % [facility] ([place]) Comment: Interpretive Data Percent cell count reference ranges are not reported, since discordance with absolute values may lead to misinterpretation of CBC data. Current Interpretive Data was last revised on 2017. Lymphocyte pct 36.7 % [facility] ([place]) Comment: Interpretive Data Percent cell count reference ranges are not reported, since discordance with absolute values may lead to misinterpretation of CBC data. Current Interpretive Data was last revised on 2017. Monocyte pct 6.0 % [facility] ([place]) Comment: Interpretive Data Percent cell count reference ranges are not reported, since discordance with absolute values may lead to misinterpretation of CBC data. Current Interpretive Data was last revised on 2017. Eosinophil pct 0.9 % [facility] ([place]) Comment: Interpretive Data Percent cell count reference [...] Final Res ult [facility] ([place]) 1 [facility] Department [place] [address] * (ABNORMAL) CBC with auto differential (01/15/2025 [...] ORDERABLES Final Result [facility] ([place]) 1 [facility] Department [place] [address] * Comprehensive metabolic panel (01/15/2025 3:57 AM [...] BLOOD ORDERABLES Final Result Performing Organization Address City/[facility]/ZIP Co de Phone Number [facility] ([place] 1 [facility] [place] [address] * eGFR (01/14/2025 8:59 AM CDT) eGFR [...] BLOOD ORDERABLES Final Res ult [facility] ([place]) 1 [facility] [place] [address] * Comprehensive metabolic panel (01/14/2025 8:59 AM [...] ORDERABLES Final Result [facility] ([place]) 1 [facility] Department [place] [address] * eGFR (01/14/2025 3:58 AM CDT) eGFR [...] MD LAB BLOOD ORDERABLES Final Res ult [facility] ([place]) 1 [facility] Department [place] [address] * (ABNORMAL) Basic metabolic panel (01/14/2025 3:58 AM CDT) Sodium 138 135 - 145 mmol/L Potassium, pl 3.8 3.3 - 4.9 mmol/L [facility] Chloride 99 97 - 110 mmol/L [facility] ([place]) CO2 22 22 - 32 mmol/L [facility] ([place]) Anion gap 16(H) 2 - 15 mmol/L [facility] ([place] BUN 12 6 - 25 mg/dL [facility] ([place] Creatinine 1.14 0.80 - 1.30 mg/dL [facility] ([place] Glucose 89 70 - 199 mg/dL [facility] ([place]) Comment: Interpretive Data Fasting glucose [...] ORDERABLES Final Res ult Performing Organization Address [facility] Co de Phone Number [facility] ([place]) 1 [facility] [email or web address] [address] * (ABNORMAL) Hemoglobin and hematocrit (01/14/2025 3:54 AM CDT) Hgb 13.4 13.0 - 17.5 g/dL Hct 37.8(L) 38.9 - 50.3 % [facility] ([place]) Blood 01/14/2025 3:54 AM CDT 01/14/2025 4:43 AM CDT Tiffanie March MD LAB BLOOD ORDERABLES Final Res ult Performing Organization Address [facility]/ZIP Co de Phone Number [facility] ([place] 1 [facility] [email or web address] [address] * ABO / Rh Confirmation Testing (01/13/2025 11:59 AM CDT) ABO/Rh Confirmation O Positive [facility] Blood 01/13/2025 11:5 9 AM CDT 01/13/2025 12:03 PM CDT Aydin Chaudhary MD LAB BLOOD ORDERABLES Final Re sult Performing Organization Address [facility]/ZIP Co de Phone Number [facility] [place]) 1 [facility] Department [place] [address] [facility] * Hemoglobin and hematocrit (01/13/2025 11:59 AM CDT) Hgb 13.6 13.0 - 17.5 g/dL Hct 39.1 38.9 - 50.3 % [facility] ([place]) Blood 01/13/2025 11:5 9 AM CDT 01/13/2025 12:03 PM CDT us Prabhjot Taveras MD LAB BLOOD ORDERABLES Fi nal Result Performing Organization Address [facility] Co de Phone Number [facility] [place]) 1 [facility] [place] [address] * CT Abdomen Pelvis WO Contrast (01/13/2025 [...] by Lilian Aly M.D. SN: Report ID: [id number] Reading Location: [id number] Procedure Note Lilian Aly MD - 01/13/2025 [...] Lilian Aly M.D. SN: SN Report ID: [id number] Reading Location: [id number] us Aydin Chaudhary MD IMG CT PROCEDURES [...] Lilian Aly M.D. SN: SN Report ID: [id number] Reading Location: [id number] Procedure Note Lilian Aly MD - 01/13/2025 [...] Lilian Aly M.D. SN: SN Report ID: [id number] Reading Location: [place] [address] Aydin Chaudhary MD IMG XR PROCEDURES Final [...] tendency for uric acid stone formation. Source: Interior Define Current Interpretive Data was last revised on [...] DERABLES Final Result [facility] ([place]) 1 [facility] Department [place] [address] * (ABNORMAL) Drugs of Abuse Screen, Urine [...] 2023. Urine Creatinine 76 mg/dL LESTER JAFFE [facility] ([place]) Comment: Interpretive Data Urine Creatinine: < 10 mg/dL is extremely dilute = or > 10 but < 20 mg/dL is dilute = or > 20 mg/dL is normal Current Interpretive Data was last revised on 2017. Urine 01/13/2025 3:37 AM CDT 01/13/2025 3:43 AM CDT Narrative [facility] ([place]) - 01/13/2025 4:01 AM CDT Drug of Abuse screening is performed by immunoassay for medical purposes only. This is not to be used for Pain Management purposes. Aydin Chaudhary MD LAB URINE ORDERABLES Final Re sult Performing Organization Address City/[facility]/ZIP Co de Phone Number [facility] ([place]) 1 [facility] [place] [address] * Osmolality, urine (01/13/2025 3:37 AM CDT) Osmo, ur 355 mOsm/kg Comment:Testing performed by : [facility], [address] [place] [address]., [id number] Urine 01/13/2025 3:37 AM CDT 01/13/2025 2:00 PM CDT Aydin Chaudhary MD LAB URINE ORDERABLES Final Re sult [facility] ([place]) 1 [place] [address] * (ABNORMAL) Osmolality, blood (01/13/2025 3:37 AM CDT) Osmo 384(C) 275 - 300 mOsm/kg Comment: reviewed Testing performed by: [facility], [address] [place] [address]., [id number] Blood 01/13/2025 3:37 AM CDT 01/13/2025 2:01 PM CDT us Aydin Chaudhary MD LAB BLOOD ORDERABLES Final Re sult [facility] ([place]) 1 [facility] [place] [address] * Lipase (01/13/2025 3:37 AM CDT) Lipase 26 10 - 99 Units/L Blood 01/13/2025 3:37 AM CDT 01/13/2025 5:25 AM CDT Aydin Chaudhary MD LAB BLOOD ORDERABLES Final Re sult Performing Organization Address [facility] Co de Phone Number [facility] ([place]) 1 [facility] [place] [address] * (ABNORMAL) eGFR (01/13/2025 2:57 AM CDT) [...] BLOOD ORDERABLES Final Re sult [facility] ([place]) 1 [facility] Department [place] [address] * (ABNORMAL) Differential, auto (01/13/2025 2:57 AM CDT) Neutrophil abs 4.31 1.50 - 6.50 K/cumm Imm gran abs 0.02 0.00 - 0.10 K/cumm [facility] ([place]) Lymphocyte abs 4.29(H) 0.80 - 3.30 K/cumm [facility] ([place]) Monocyte abs 0.59 0.20 - 0.80 K/cumm [facility] ([place]) Eosinophil abs 0.13 0.00 - 0.50 K/cumm [facility] ([place]) Basophil abs 0.10 0.00 - 0.10 K/cumm [facility] ([place]) Neutrophil pct 45.6 % [facility] ([place]) Comment: Interpretive Data Percent cell count reference ranges are not reported, since discordance with absolute values may lead to misinterpretation of CBC data. Current Interpretive Data was last revised on 2017. Imm gran pct 0.2 % [facility] ([place]) Comment: Interpretive Data Percent cell count reference ranges are not reported, since discordance with absolute values may lead to misinterpretation of CBC data. Current Interpretive Data was last revised on 2017. Lymphocyte pct 45.4 % [facility] ([place]) Comment: Interpretive Data Percent cell count reference ranges are not reported, since discordance with absolute values may lead to misinterpretation of CBC data. Current Interpretive Data was last revised on 2017. Monocyte pct 6.3 % [facility] ([place]) Comment: Interpretive Data Percent cell count reference ranges are not reported, since discordance with absolute values may lead to misinterpretation of CBC data. Current Interpretive Data was last revised on 2017. Eosinophil pct 1.4 % [facility] ([place]) Comment: Interpretive Data Percent cell count reference [...] Final Re sult [facility] ([place]) 1 [facility] Department [place] [address] * (ABNORMAL) CBC with auto differential (01/13/2025 [...] ORDERABLES Final Re sult Performing Organization Address City/[facility]/ZIP Co de Phone Number [facility] ([place]) 1 [facility] [place] [address] * ABO/Rh (01/13/2025 2:57 AM CDT) ABO/Rh O Positive Blood 01/13/2025 2:57 AM CDT 01/13/2025 3:18 AM CDT Narrative [facility] ([place]) - 01/13/2025 3:47 AM CDT Has the patient had Daratumumab or Isatuximab in the past 6 months?->Unknown Aydin Chaudhary MD LAB BLOOD BANK TEST ORDERABLE S Final Result Performing Organization Address [facility] Co de Phone Number [facility] ([place]) 1 [facility] [place] [address] * aPTT (01/13/2025 2:57 AM CDT) aPTT 33 28 - 38 sec [facility] ([place]) Comment: Interpretive Data Heparin therapeutic range: 66.0 - 100.0 seconds. Range based on correlation with therapeutic heparin activity range of 0.3 - 0.7 Units/mL. Current interpretive data was last revised on 2023. Blood 01/13/2025 2:57 AM CDT 01/13/2025 3:18 AM CDT Aydin Chaudhary MD LAB BLOOD ORDERABLES Final Re sult Performing Organization Address City/[facility]/ZIP Co de Phone Number [facility] ([place]) 1 [facility] [place] [address] * Protime-INR (01/13/2025 2:57 AM CDT) PT 11.3 9.7 - 13.0 sec [facility] ([place]) INR 1.05 0.90 - 1.20 ALPHONSO TIDWELL (WELLS) Comment: Interpretive data Oral anticoagulant therapeutic ranges: Venous thromboembolism prophylaxis or treatment: 2.0-3.0 CARDIOLOGY Standard range: 2.0-3.0 High-intensity range: 2.5-3.5 Refer to indication-specific guidelines for appropriate target ranges for prosthetic heart valve replacement. Current interpretive data was last revised on 2019. Blood 01/13/2025 2:57 AM CDT 01/13/2025 3:18 AM CDT Aydin Chaudhary MD LAB BLOOD ORDERABLES Final Re sult Performing Organization Address City/[facility]/ZIP Co de Phone Number ALPHONSO TIDWELL (WELLS) 1 [facility] [email or web address] [address] * Antibody screen (01/13/2025 2:57 AM CDT) Twin, indirect, Gel Interpretation Negative ABSC Blood 01/13/2025 2:57 AM CDT 01/13/2025 3:18 AM CDT Narrative ALPHONSO TIWDELL (WELLS) - 01/13/2025 4:20 AM CDT Has the patient had Daratumumab or Isatuximab in the past 6 months?->Unknown Aydin Chaudhary MD LAB BLOOD BANK TEST ORDERABLE S Final Result Performing Organization Address [facility] Co de Phone Number ALPHONSO TIDWELL (WELLS) [address] [place] [address] [email or web address] [address] * (ABNORMAL) Ethanol (01/13/2025 2:57 AM CDT) Ethanol 329(C) <=10 mg/dL Comment: Critical Result called by [email or web address] at 2025-01-13 04:11:29. Result Read Back by Fadumo Anaya ED Interpretive Data Legal limit of intoxication > or = 80 mg/dL Levels > or = 400 mg/dL are potentially TOXIC. Current interpretive data was last revised on 2018. Blood 01/13/2025 2:57 AM CDT 01/13/2025 3:50 AM CDT us Aydin Chaudhary MD LAB BLOOD ORDERABLES Final Re sult [facility] (NBA) 1 [facility] Department [place] [address] * (ABNORMAL) Comprehensive metabolic panel (01/13/2025 2:57 [...] BLOOD ORDERABLES Final Re sult [facility] (WELLS) 1 [facility] Department [place] [address] from Last 3 Months Insurance [facility] Advance Directives For more information, please contact: [phone] * Full Code (Latest Code Status on File) Date Activated Date Inactivated Comments 01/15/2025 12:06 PM 01/15/2025 7:30 PM * Full Code Date Activated Date Inactivated Comments 01/13/2025 6:19 AM 01/15/2025 12:06 PM Care Teams Public Speaking Professor Relationship Specialty Start Date End Date Ernesto De La [place] [address] PCP - General Family Medicine 09/20/19
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
--- OUTSIDE RECORDS SUMMARY | 2025-03-21 04:22 | XMS_ITS | Clinical Summary ---
Author Organization [facility] Address [address] [place] [address] Care Team Providers Care Handbag Finisher Name Role Phone Unavailable Primary Care Provider [...]
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
[2025-03-21] MEDS: ONDANSETRON INJ 4 MG/2 ML VIAL IV PUSH (04:31)
[2025-03-21] MEDS: SODIUM CHLORIDE 0.9% IV 1,000 ML 999 ML IV CONT (04:31)
[2025-03-21] MEDS: MORPHINE SULFATE (*CRX) 4 MG/ML INJ IV PUSH (04:31)
[2025-03-21 05:53] LABS: Lipase 92 U/L (23-300)
[2025-03-21 05:56] LABS: Acetaminophen < 10 ug/mL (10-30)
[2025-03-21 06:05] LABS: INR 1.1; Prothrombin Time 14.6 Seconds (11.1-14.7)
[2025-03-21 06:06] LABS: Partial Thromboplastin Time 31.5 Seconds (22.3-36.8)
[2025-03-21] MEDS: HYDROmorphone HCL INJ (*CRX) 2 MG/ML VIAL 0.5 MG IV PUSH (06:41)
--- NOTE | 2025-03-21 07:26 | PC.NURSE ---
Assumed care of pt from Radha. Pt states pain and nausea are better. Dr Fish in to talk with pt with orders received. Pt tolerated self started PO challenge. Denies vomiting with drinking own fluids.
[2025-03-21] MEDS: DICYCLOMINE HCL 10 MG CAPSULE 20 MG PO (07:41)
[2025-03-21 07:56] LABS: Beta-Hydroxybutyrate/Acetoacetate 1.28 mmol/L (0.02-0.27)
== END 2025-03-21 07:50 | disposition home or self-care (01) ==
PROVIDERS: Emergency Medicine; Emergency Provider Student in an Organized Health Care Education/Training Program; PCP Family Medicine
DX: R11.2 Nausea with vomiting, unspecified (principal); R10.9 Unspecified abdominal pain; N17.9 Acute kidney failure, unspecified; I12.9 Hypertensive chronic kidney disease with stage 1 through stage 4 chronic kidney disease, or unspecified chronic kidney disease; N18.9 Chronic kidney disease, unspecified; R73.9 Hyperglycemia, unspecified; R74.01 Elevation of levels of liver transaminase levels; R82.998 Other abnormal findings in urine; K76.0 Fatty (change of) liver, not elsewhere classified; G47.30 Sleep apnea, unspecified; E78.00 Pure hypercholesterolemia, unspecified; K21.9 Gastro-esophageal reflux disease without esophagitis; Z87.891 Personal history of nicotine dependence; Z79.899 Other long term (current) drug therapy
CPT/HCPCS: 36415; 74177; 80053; 80143; 81001; 82010; 83690; 85025; 85610; 85730; 87086; 93005; 96361; 96374; 96375; 99284; A9270; J1171; J2270; J2405; J7030; Q9967

== ENCOUNTER 2025-07-22 15:18 | Emergency (ER) | payer OTHER, SELFPAY ==
--- NOTE | ~2025-07-22 | XR_ITS ---
PROCEDURE/PROCEDURES: XR forearm RT 2V, XR wrist RT min 3V HISTORY: Injury COMPARISON(S): None. TECHNIQUE: 6 radiographic images were submitted for interpretation. FINDINGS: Bones: There are no fractures seen. There are no destructive lesions or other lesions identified. Joints: There are no dislocations identified. There is no evidence of erosive arthropathy. IMPRESSION: No acute abnormalities are seen. Reviewed, dictated and finalized at location B. AGE [employer]ER DEVELOPER IMPRESSION: No acute abnormalities are seen.
[2025-07-22 15:28] VITALS: BP 156/109; PULSE 110; RESP 20; TEMP 36.4; O2SAT 98
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
--- OUTSIDE RECORDS SUMMARY | 2025-07-22 17:57 | XMS_ITS | Clinical Summary ---
Author Organization [facility] Address [address] [place] [address] Care Team Providers Care Wool Hat Finisher Name Role Phone Ernesto De La Rosa MD Primary Care Provider [phone] Allergies No known active allergies Medications needle, disp, 23 gauge 23 gauge x 1 needleIndication s:Hypogonadism in male Use to inject testosterone every 7 days. 25 each 08/07/20 21 Active atorvastatin (LIPITOR) 80 mg tablet Take 1 tablet (80 mg total) by mouth daily 90 tablet 4 06/11/20 24 Active labetaloL (NORMODYNE,TRAND ATE) 200 mg tabletIndication s:Essential hypertension TAKE 1 TABLET(200 MG) BY MOUTH DAILY 90 tablet 1 12/11/19 25 Active Additional Information Patient taking differently: 100 mg oral Daily, Indications: hypertension, Reported on 04/16/2025 cyclobenzaprine (FLEXERIL) 10 mg tablet Take 1 tablet (10 mg total) by mouth 3 (three) times a day as needed for muscle spasms Active pantoprazole DR (PROTONIX) 40 mg EC tablet Take 1 tablet (40 mg total) by mouth daily 30 tablet 5 04/16/20 25 026 Active folic acid (FOLVITE) 1 mg tablet Take 1 tablet (1 mg total) by mouth daily for 3 doses 3 tablet 01/16/20 25 Active Additional Information Patient not taking.Reported on 04/16/2025 metoclopramide (REGLAN) 10 mg tablet Take 1 tablet (10 mg total) by mouth 3 (three) times a day before meals for 9 doses 9 tablet 01/16/20 25 Active thiamine (VITAMIN B1) 100 mg tablet Take 1 tablet (100 mg total) by mouth daily for 3 doses 3 tablet 01/16/20 25 Active Additional Information Patient not taking.Reported on 04/16/2025 losartan (COZAAR) 100 mg tabletIndication s:Essential hypertension TAKE 1 TABLET(100 MG) BY MOUTH DAILY 90 tablet 3 03/07/[address] (PROTONIX) 40 mg EC tabletIndication s:GI Bleed Take 1 tablet (40 mg total) by mouth 2 (two) times a day 60 tablet 2 06/24/20 25 026 Active testosterone cypionate (DEPO-TESTOTERON E) 200 mg/mL injectionIndicat ions:Hypogonadis m in male Inject 0.5 mL (100 mg total) into the muscle as instructed every 7 days 4 mL 06/24/20 25 Active clonazePAM (KlonoPIN) 0.5 mg tabletIndication s:Generalized anxiety disorder Take 1 tablet (0.5 mg total) by mouth 3 (three) times a day as needed for anxiety 90 tablet 07/05/[address] (PROTONIX) 40 mg EC tabletIndication s:GI Bleed Take 1 tablet (40 mg total) by mouth 2 (two) times a day 60 tablet 2 01/16/20 25 025 Discontin ued(Reord er) testosterone cypionate (DEPO-TESTOTERON E) 200 mg/mL injectionIndicat ions:Hypogonadis m in male Inject 0.5 mL (100 mg total) into the muscle as instructed every 7 days 4 mL 04/15/20 25 025 Discontin ued(Reord er) clonazePAM (KlonoPIN) 0.5 mg tabletIndication s:Generalized anxiety disorder Take 1 tablet (0.5 mg total) by mouth 3 (three) times a day as needed for anxiety 90 tablet 06/06/20 25 025 Discontin ued(Reord er) Active Problems Problem Noted Date Diagnosed Date DEBBIE on CPAP 04/16/2025 Assessment & Plan (04/16/2025 4:26 PM CDT): Intolerant of CPAP. Will refer to sleep medicine specialist. Appreciate their expertise. BLAS (acute kidney injury) 04/16/2025 Assessment & Plan (04/16/2025 4:27 PM CDT): Elevated creatinine. Reviewed hydration recommendations avoid alcohol and nephrotoxic medications. Unsure if this is underlying chronic disease. Will recheck labs today and plan accordingly. Alcohol use disorder 04/16/2025 Assessment & Plan (04/16/2025 4:29 PM CDT): Highly encouraged to cut back on alcohol. Pre contemplative. Hospital discharge follow-up 04/16/2025 Assessment & Plan (04/16/2025 4:32 PM CDT): I, Laura Madrid NP have personally reviewed pertinent inpatient and/or ED records, including discharge medications and [employer] if applicable. This patient's discharge medication list has been reviewed and reconciled with his outpatient medication list and has also been reviewed with patient and/or caregiver. I have noted any changes. Hematemesis 01/14/2025 Hematemesis with nausea 01/13/2025 History of colon polyps 05/29/2024 Assessment & Plan (04/16/2025 4:26 PM CDT): Referral to GI for colonoscopy. Assessment & Plan (05/29/2024 3:58 PM CDT): [...] Assessment & Plan (09/28/2024 4:09 PM FIELD ADMINISTRATOR): Encouraged heart healthy diet and lifestyle. Advised 150 min/week of aerobic exercise. Assessment & Plan (11/04/2022 2:40 PM FIELD ADMINISTRATOR): Discussed healthy diet and importance of regular [...] High 26 R Comment: Testing performed by: [facility], [address] [place] [address]., [id number] AST 10 - 50 Units/L 148 High 78 High CM 124 High 71 High LFTs elevated last 3 draws. Will recheck. Discussed possible statin change. Discussed avoiding tylenol & alcohol as he is able. Refused pneumococcal vaccination 02/16/2022 Hypogonadism in male 01/30/2021 Assessment & Plan (09/28/2024 4:12 PM FIELD ADMINISTRATOR): Stable and well controlled. Will continue with testosterone and monitoring Assessment & Plan (05/12/2023 2:06 PM CDT): Continue testosterone 100 mg weekly Assessment & Plan (11/04/2022 2:41 PM FIELD ADMINISTRATOR): Has been out of medication for the [...] Assessment & Plan (08/07/2021 1:18 PM FIELD ADMINISTRATOR): 04/23/21 t=364, had been 251 08/2021. Continues [...] Assessment & Plan (09/28/2024 4:12 PM FIELD ADMINISTRATOR): Stable and well controlled. Will continue on Klonopin and monitoring. Assessment & Plan (11/04/2022 2:48 PM FIELD ADMINISTRATOR): Taking clonazepam p.r.n. with good response. Assessment [...] Assessment & Plan (08/07/2021 1:20 PM FIELD ADMINISTRATOR): Clonazepam 0.5mg tid prn #90 refilled 07/06/21. [...] Assessment & Plan (09/28/2024 4:09 PM FIELD ADMINISTRATOR): Blood pressure stable and well controlled. Will continue on Labetalol and Losartan. Assessment & Plan (05/12/2023 2:05 PM CDT): Blood pressure showing improvement, no changes made today. Assessment & Plan (11/04/2022 2:48 PM FIELD ADMINISTRATOR): Blood pressure is not well controlled today, [...] Assessment & Plan (08/07/2021 1:21 PM FIELD ADMINISTRATOR): Losartan 100mg daily, labetalol 200mg bid. The [...] Assessment & Plan (10/25/2019 11:56 AM FIELD ADMINISTRATOR): Elevation today likely due to increasing anxiety Assessment & Plan (09/22/2019 1:53 PM FIELD ADMINISTRATOR): Will continue amlodipine 10mg daily. Will increase [...] Assessment & Plan (08/27/2019 1:34 PM FIELD ADMINISTRATOR): Will place cardiology referral. He is not responding well to losartan or amlodipine nor has he responded well to the medications in the past. Advised to report to the ER for chest pain shortness of breath or any distress. Assessment & Plan (07/25/2019 11:49 AM FIELD ADMINISTRATOR): He has not used his medication in over 2 months due to being out not been able to afford it. Will restart medication at current dosages and follow up in 30 days Annual physical exam 07/25/2019 Assessment & Plan (09/28/2024 4:13 PM FIELD ADMINISTRATOR): In regard to health maintenance, Colonoscopy- scheduled [...] healthier, we can set up appointment with supervisor mending/bead picker. Have an active lifestyle, strive for 30 [...] Assessment & Plan (07/25/2019 11:48 AM FIELD ADMINISTRATOR): Patient is without insurance at this time. [...] Assessment & Plan (08/07/2021 1:21 PM FIELD ADMINISTRATOR): Discussed and the patient refuses immunization today. Educated regarding the need to vaccinate for personal protection and to limit the viruses in the community to protect those most vulnerable. Assessment & Plan (09/22/2019 1:48 PM FIELD ADMINISTRATOR): Discussed and the patient refuses immunization today. Educated regarding the need to vaccinate for personal protection and to limit the viruses in the community to protect those most vulnerable. Gastroesophageal reflux disease 04/24/2018 Assessment & Plan (04/16/2025 4:32 PM CDT): Highly encouraged avoiding alcohol. Referral to GI placed as well. Red flags reviewed. Assessment & Plan (09/28/2024 4:16 PM FIELD ADMINISTRATOR): Stable and well controlled. Omeprazole will continue and monitor Hyperlipidemia 04/24/2018 Assessment & Plan (09/28/2024 4:11 PM FIELD ADMINISTRATOR): LDL greatly improved and almost at goal at <70. Will continue on Atorvastatin. Will continue to monitor. Assessment & Plan (05/28/2024 4:22 PM CDT): Encourage compliance with atorvastin. Reviewed lifestyle recommendations Assessment & Plan (05/12/2023 2:06 PM CDT): Encouraged patient to take atorvastatin 40 mg daily. Assessment & Plan (11/04/2022 2:46 PM FIELD ADMINISTRATOR): Patient is not currently taking atorvastatin. Will check labs today. Patient encouraged to take daily. Reviewed cardiovascular risk. Assessment & Plan (02/19/2022 11:07 AM CDT): 09/03/20 EU=138 HDL=55 RK=785 ZUR=453 TC/HDL=5.0 YJYCZA=888 04/23/21 QB=039 HDL=41 BL=238 ODX=470 TC/HDL=6 VKGTWQ=035 T=364 05/08/21 HX=606 HDL=38 RN=123 QLT=917 TC/HDL=6.4 QCQQZS=867 08/07/21 DU=849 HDL=20 HL=615 BHM=326 TC/HDL=13.6 PBJUMK=267 09/28/21 DT=195 HDL=46 TF=291 JAV=625 TC/HDL=4 BJSRZW=926 12/02/21 NB=502 HDL=44 HO=662 MPM=689 TC/HDL=6 HWASIW=866 Atorvastatin 40mg daily. Continues to lose weight. [...] & Plan (11/10/2021 5:51 PM CDT): 09/03/20 SH=352 HDL=55 NE=607 QAY=206 TC/HDL=5.0 BTXWDF=854 04/23/21 GQ=567 HDL=41 DD=140 MJP=586 TC/HDL=6 CWAEJN=978 T=364 05/08/21 AY=729 HDL=38 FN=552 LBP=777 TC/HDL=6.4 GTENRR=030 08/07/21 XD=852 HDL=20 CQ=085 GHZ=343 TC/HDL=13.6 ZFGKXD=890 09/28/21 MY=026 HDL=46 IZ=746 PRF=785 TC/HDL=4 RCHKHP=552 Atorvastatin 40mg daily. Has lost 26# on [...] Assessment & Plan (08/07/2021 2:00 PM FIELD ADMINISTRATOR): atorvastatin 20mg daily. Denies myalgias. 09/03/20 OX=572 HDL=55 UM=319 DRP=977 TC/HDL=5.0 KLBELX=145 09/19/20 T=251 04/23/21 DX=415 HDL=41 MZ=862 DXZ=543 TC/HDL=6 NAUWVQ=793 T=364 05/08/21 KS=567 HDL=38 QZ=963 OBT=695 TC/HDL=6.4 ILWGUU=210 08/07/21 SI=367 HDL=20 XZ=140 ULF=509 TC/HDL=13.6 HQMRUJ=609 Will double atorvastatin from 20mg to 40mg. [...] & Plan (05/08/2021 3:51 PM CDT): 04/16/20 MU=769 HDL=56 FA=211 CYI=221 TC/HDL=5 DADHJU=336 09/03/20 HD=375 HDL=55 HT=248 QJR=698 TC/HDL=5.0 VEDVOR=526 04/23/21 BZ=987 HDL=41 NI=797 URQ=577 TC/HDL=6 EBOKZB=354 T=364 05/08/21 KI=421 HDL=38 SO=623 WDX=438 TC/HDL=6.4 UQACQS=917 Atorvastatin 20mg daily sent. Reviewed med SE & scheduling. Stressed need for diet/activity changes. Discussed healthier options of frozen meals, better snacks. Will recheck lipid panel in 3 mos. Assessment & Plan (02/01/2021 4:00 PM CDT): 04/16/20 MY=639 HDL=56 CL=553 PPP=823 TC/HDL=5 09/03/20 TU=338 HDL=55 GX=440 UTD=952 TC/HDL=5.0 Lipid panel ordered; will call w/results when received. Reviewed diet/exercise recommendations. Discussed need for statin if TC/LDL remains elevated. Assessment & Plan (02/12/2020 3:55 PM CDT): 09/20/19 VO=047 HDL=55 TG=77 EWM=352 TC/HDL=4.4 Lipid panel sent to [facility]. Will be going to get labs from Dr Mendez prior to next appt. Polyp of colon 04/14/2017 Family history of malignant neoplasm of colon Assessment & Plan (04/16/2025 4:25 PM CDT): Referral to GI placed. Assessment & Plan (02/01/2021 3:58 PM CDT): [...] of 35.0 to 35.9 in adult 11/10/2021 Assessment & Plan (11/10/2021 5:55 PM CDT): Congratulated on wt loss. Down from 287# to 261#. Has changed diet. Quit drinking soda. Has been playing frisbee golf. Reviewed need to lose weight, reviewed health benefits. Reviewed recommendations for daily intake & activity 20-30 minutes/day. Discussed healthy diet and importance of regular physical activity. Palpitations 08/07/2021 02/19/2022 Assessment & Plan (08/07/2021 1:51 PM FIELD ADMINISTRATOR): H/o palpitations for many years. Had holter monitor in his 20s. Denies excess caffeine intake. No CP/SOB. holter monitor ordered. Will contact w/results once rec'd. Acute nasopharyngitis 08/07/20212021 Assessment & Plan (08/07/2021 1:58 PM FIELD ADMINISTRATOR): Discussed otc mucinex plain & coricidin HBP. Discussed saline rinse. Will call if no improvement in 1 week w/otc medications. Class 2 severe obesity due t o excess calories with serious comorbidity and body mass index (BMI) of 37.0 to 37.9 in adult 05/08/2021 2 Assessment & Plan (08/07/2021 1:19 PM FIELD ADMINISTRATOR): Reviewed need to lose weight, reviewed health benefits. Reviewed recommendations for daily intake & activity 20-30 minutes/day. Discussed healthy diet and importance of regular physical activity. Assessment & Plan (05/08/2021 3:48 PM CDT): Reviewed need to lose weight, reviewed health benefits. Reviewed recommendations for daily intake & activity 20-30 minutes/day. Discussed healthy diet and importance of regular physical activity. Has gym membership at [employer]; not using currently. Subareolar lump of left breast 02/01/2021 02/19/2022 Assessment & Plan (02/01/2021 4:15 PM CDT): L breast US ordered. Aware to call [facility] to schedule. Contact info given. Will contact w/results once rec'd. Aware to check his [employer] account for results. Hypogonadism male 01/30/2021 05/08/2021 [...] importance of regular physical activity. Has started [employer] service. 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 [...] cessation. Discussed different types of medications & kvlz-nsb-myjedpf aides to help with cessation. Assessment & Plan (02/12/2020 3:56 PM CDT): Precontemplative. Encouraged complete smoking cessation. Discussed different types of medications & qtqb-vui-sypdrhz aides to help with cessation. Assessment & Plan (09/22/2019 1:53 PM FIELD ADMINISTRATOR): Precontemplative. Encouraged complete smoking cessation. Discussed different types of medications & wywp-oba-qvllgqe aides to help with cessation. Encounter for screening for lipoid disorders 0 12/05/2020 Assessment & Plan (09/22/2019 1:51 PM FIELD ADMINISTRATOR): 09/20/19 DA=278 HDL=55 TG=77 GHT=010 TC/HDL=4.4. Copy of results & written explanation/parameters given to Mr Marcelo. Need to greatly improve diet; LDL & cholesterol high. Labs given to repeat lipid panel in 3 mos. BMI 33.0-33.9,adult 09/20/2019 02/12/20 Assessment & Plan (09/22/2019 1:51 PM FIELD ADMINISTRATOR): Reviewed need to lose weight, reviewed health benefits. Reviewed recommendations for daily intake & activity 20-30 minutes/day. Discussed healthy diet and importance of regular physical activity. Bronchitis 09/20/2019 12/05/2020 Assessment & Plan (09/22/2019 1:52 PM FIELD ADMINISTRATOR): Zpack & medrol dose pack sent. To p/u expectorant (ie mucinex) and antihistamine (ie pat/claritin/zyrtec). Reviewed med Ses & scheduling. Aware to complete antibiotic & medrol. Reviewed red flags; what would warrant rtc or ED for further eval. Push fluids. Stressed need to STOP smoking. Sore throat 09/20/2019 12/05/2020 Assessment & Plan (09/22/2019 1:53 PM FIELD ADMINISTRATOR): NEG for strep at office. Gargle with [...] Assessment & Plan (08/27/2019 1:37 PM FIELD ADMINISTRATOR): Well controlled with current medication Assessment & Plan (07/25/2019 11:49 AM FIELD ADMINISTRATOR): Stable on current medication. Will continue current prescribed therapy. Encounters Date Type Department Care Team Description 04/25/2025 Telephone [facility] G[facility] at [address] [place] [address] Mily Winkler from Last 3 Months Immunizations Immunization Administration [...] file Legal Sex Male 3:02 AM FIELD ADMINISTRATOR Gender Identity Male 01/19/2022 9:29 PM CDT Sexual Orientation Straight 01/19/2022 9: 29 PM CDT Last Filed Vital Signs Vital Sign Reading Time Taken Comments Blood Pressure 124/84 04/16/2025 2:34 PM CDT Pulse 91 04/16/2025 2:34 PM CDT Temperature 36.7 C (98 F) 04/16/2025 2:34 PM CDT Respiratory Rate 20 04/16/2025 2:34 PM CDT Oxygen Saturation 96% 04/16/2025 2:34 PM CDT Inhaled Oxygen Concentration - - Weight 120.9 kg (266 lb 9.6 oz) 04/16/2025 2:34 PM CDT Height 185.4 cm (6' 0.99) 04/16/2025 2:34 PM CD T Body Mass Index 35.18 04/16/2025 2:34 PM CDT Plan of Treatment Health Maintenance [...] 03/31/2017, Additional history exists Varicella Vaccines Discontinued Insurance [facility] Advance Directives For more information, please contact: [phone] * Full Code (Latest Code Status on File) Date Activated Date Inactivated Comments 01/15/2025 12:06 PM 01/15/2025 7:30 PM * Full Code Date Activated Date Inactivated Comments 01/13/2025 6:19 AM 01/15/2025 12:06 PM Care Teams Wool Hat Finisher Relationship Specialty Start Date End Date Ernesto [place] [address] PCP - General Family Medicine 09/20/19
--- OUTSIDE RECORDS SUMMARY | 2025-07-22 17:57 | XMS_ITS | Clinical Summary ---
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 Systems Mechanic Name Role Phone Deloris Sheppard Primary Care Provider [phone] Allergies No known active allergies Medications HYDROCHLOROTHIA [...] Additional Information Patient not taking.Reported on 11/20/2024 Family History Medical History Relation Name Comments [...] Comments Hepatitis C Virus (HCV) Screening 1983 Varicella Immunization (1 of 2 - 13+ 2-dose series) 1996 Hepatitis B Immunization (1 of 3 - 19+ 3-dose series) 2002 Pneumococcal Immunization Co mbined (1 of 2 - PCV) 2002 Human Papillomavirus (HPV) Immunization (1 - 3-dose SCDM series) 2010 Influenza Immunization (#1) 2025 07/19/2006 SARS-COV-2 Immunization ( - 2024- season) 2025 Respiratory Syncytial Virus (RSV) Immunization (Adult) (1 - 1-dose 75+ series) 2058 DTaP/Tdap/Td Immunization Discontinued 03/31/2017 TdaP Immunization Completed 03/31/2017 Meningococcal Immunization (ACWY) Aged Out No longer eligible based on patient's age to complete this topic Rotavirus Immunization Aged Out No lo nger eligible based on patient's age to complete this topic Insurance MEDICAID [place] Care Teams Pneudraulic Systems Mechanic Relationship Specialty Start Date End Date Deloris Sheppard PA [address] [id number] PCP - General Adult Medicine 06/22/18
--- OUTSIDE RECORDS SUMMARY | 2025-07-22 17:57 | XMS_ITS | Clinical Summary ---
Author Organization [facility] Address [address] [place] [id number] Care Team Providers Care Store Grocery Merchandiser Name Role Phone Unavailable Primary Care Provider [...] 3-dose SCD M series) 2010 COVID-19 Vaccine ( - 2024-2 6 season) 2025 Influenza Adult (#1) 2025 Hepatitis A Vaccines Aged Out No long er eligible based on patient's age to complete this topic Meningococcal B Vaccine Aged Out No l [...]
--- OUTSIDE RECORDS SUMMARY | 2025-07-22 17:57 | XMS_ITS | Data Portability ---
Author Organization [facility]ENONazia PerezSanta [place] Address [address] [facility] [place] [address] Care Team Providers Care Dehydrogenation Converter Operator Name Role Phone DELORIS SHEPPARD Primary Care Provider VANESSA Steinberg Escort Patients KURT GRAHAM Firer Boiler Assessment No assessment recorded. Plan of Treatment Reminders Order Date Submit Date Provider Last Modified By Organization Details Last Modified Time Details Appointments None recorded. Lab CMP, serum or plasma 2018 019 [facility], [address], [address], [place], [address], 9 17:34:43 testostero ne, free + total, serum 2018 019 [facility], [address] [facility] [address], [address], [place], [address], 9 17:34:43 CBC w/ auto diff 2018 019 [facility], [address], [address], [place], [address], 9 09:10:11 TSH + free T4, serum 2018 019 [facility], [address], [address], [place], [address], 9 09:10:11 Referral None recorded. Procedures None recorded. Surgeries None recorded. Imaging US, duplex, renal artery [facility], [address] [place], [address], 8 12:17:13 Medication Orders ranitidine 300 mg tablet 2018 019 [facility] #04822, [address], [place], [place], [id number], 9 13:21:08 Chantix Starting Month Box 0.5 mg (11)-1 mg (42) tablets in dose pack 2018 019 [facility] #96913, [address] , [place], [place], [id number], 9 12:27:41 cyclobenza isma 10 mg tablet 2018 019 [facility] #99888, [address] [place], [place], [id number], 9 10:11:38 meloxicam 15 mg tablet 2018 019 [facility] #80535, [address] [place], [place], [id number], 9 10:11:37 losartan 100 mg tablet 2018 019 [facility] #38146, [address] [place], [place], [id number], 9 10:11:39 amlodipine 10 mg tablet 2018 019 [facility] #00757, [address] [place], [place], [id number], 9 10:11:40 hydrochlor othiazide 12.5 mg capsule 2018 019 [facility] #36576, [address], [place], [place], [id number], 9 12:27:08 clonazepam 1 mg tablet 2018 019 [facility] #49943, [address] [place], [place], [id number], 9 10:11:39 losartan 100 mg tablet 2017 018 [facility] #29053, [address] [place], [id number], 8 16:21:16 clonazepam 0.5 mg tablet [email or web address] [facility] #98847, [address] [place], [id number], 9 14:45:21 venlafaxin e ER 37.5 mg capsule,ex tended release 24 hr 2017 018 [email or web address] #73476, [address] [place], [place], [id number], 8 16:10:34 zolpidem 5 mg tablet 2017 018 [facility] #99763, [address] [place], [id number], 9 09:35:25 omeprazole 20 mg capsule,de layed release 2017 018 [facility] #70196, [address], [id number], 8 15:21:33 losartan 50 mg tablet 2017 018 [facility] #33124, [address] [place], [id number], 9 09:33:45 amlodipine 10 mg tablet 2017 018 [facility] #40972, [address], [place], [place], [id number], 8 15:21:30 Patient TargetsNo targets recorded. Patient Instructions Encounter Date Encounter Id Patient Instructions Last Modified By Organization Details Last Modified Time 09/06/2018 [id number] tobacco cessation [email or web address] Not availab le 09/06/2018 11:27:01 12/11/2018 [id number] tobacco cessation jdeyto Not availab le 12/11/2018 16:40:09 02/21/2019 [id number] tobacco cessation [email or web address] Not availab le 02/21/2019 [...] 2 view No observ ation record ed. [facility] [address], [place], [address], 05/30/2018 09:56:17 06/28/20 18 06/23/2018 XR, chest , 2 view No observ ation record ed. [facility] Scheduling [address] [place], [address], 07/11/2018 14:15:41 06/28/20 18 06/22/2018 US, duple x, renal arter y No observ ation record ed. [facility] ([facility]) Scheduling [address] [place], [address], 07/11/2018 09:27:32 07/10/20 18 XR, chest , 2 view No observ ation record ed. [facility] [id number] [facility], [place], [address], 07/13/2018 21:54:47 09/26/19 19 08/15/2018 exerc isyara garay s test No observ ation record ed. [facility] ([facility]) Scheduling [address] [place], [address], 09/27/2018 12:28:10 05/09/20 19 05/04/2019 XR, chest , 2 view No observ ation record ed. [email or web address] Not Available 2018 15:02:17 Result Notes None recorded. Problems Name Problem SNOMED Code Status Onset Date Resolution Date Notes Provider Name and Address Organization Details Recorded Time Benign hypertens ion 53048682 Active 2016 Remedios Storm MD Attn: Ernestine munoz,[address], [place], [address], [facility] 7 14:48:28 Mixed anxiety and depressiv e disorder 048995743 Active 2016 Remedios Storm MD Attn: Ernestine munoz,[address] [facility], [place], [address], [place] - [facility] 7 14:48:55 Smoker 34529318 Completed 201609/06/2018 Deloris Sheppard PA-C Attn: Ernestine munoz,[address] [facility], [place], [address], [place] - [facility] 9 10:08:14 Family history of cancer of colon 867174284 Active 2016 Remedios Storm MD Attn: Ernestine munoz,[address] [facility], [place], [address], [place] - [facility] 7 14:55:18 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, repeat scope in 3yrs Deloris Sheppard PA-C Attn: Ernestine munoz,[address] [facility], [place], [address], [place] - [facility] 8 15:42:58 Gastroeso phageal reflux disease without esophagit is 747422878 Active 2017 Deloris Sheppard PA-C Attn: Ernestine munoz,[address] [facility], [place], [address], [place] - [facility] 8 15:56:14 Community acquired pneumonia 893695420 Completed 201707/10/2018 Deloris Sheppard PA-C Attn: Ernestine munoz,[address] [facility], [place], [address], [place] - [facility] 8 16:12:20 Hyperlipi demia 89776561 Active 2017 Deloris Sheppard PA-C Attn: Ernestine munoz,[address] [place], [address], [place] - [facility] 8 15:56:22 Tobacco user 153145433 Active 2017 Deloris Sheppard PA-C Attn: Ernestine munoz,[address] [facility], [place], [address], [facility] 8 15:56:23 Problem Notes None recorded. Procedures Surgical History Date Name Laterality Status Provider Name and Address Organization Details Recorded Time 7 Colonoscopy completed Deloris Sheppard PA-C Attn: Accounting,[address], [place], [address], [facility] 04/24/2018 15:41:56 2 Other completed Delia Dyer [facility] 02/28/2017 14:30:44 Imaging Results None recorded. Procedure [...] 09/06/2018 130/90 mm[Hg] ZAHRAA Ontiveros Attn: Accounting,[address] [place], [address], [place] - [facility] 09/06/2018 09:49:48 Date Recorded Body height Body mass index (BMI) Body weight Heart rate Respiratory rate Body temperature Oxygen saturation Systolic And Diastolic Provider Name and Address Organization Details Last Updated DateTime 9 182.25 cm 35.3 kg/m2 336218. 71 g 94 /min 18 /min 97.1 [degF] 99 % 136/94 mm[Hg] VICKY Bermudez [facility] 9 09:37:41 Date Recorded Body height Body mass index (BMI) Body weight Heart rate Body temperature Oxygen saturation Respiratory rate Systolic And Diastolic Provider Name and Address Organization Details Last Updated DateTime 9 182.25 cm 36.2 kg/m2 597780. 06 g 108 /min 98.5 [degF] 95 % 20 /min 128/98 mm[Hg] Lory Dyer [facility] 9 16:13:26 Date Recorded Body height Heart rate Body mass index (BMI) Body weight Respiratory rate Body temperature Oxygen saturation Systolic And Diastolic Provider Name and Address Organization Details Last Updated DateTime 9 182.25 cm 84 /min 35.2 kg/m2 030807. 04 g 16 /min 97.9 [degF] 98 % 126/88 mm[Hg] VICKY Bermudez [facility] 9 12:30:05 Date Recorded Body height Body mass index (BMI) Body weight Heart rate Respiratory rate Body temperature Oxygen saturation Systolic And Diastolic Provider Name and Address Organization Details Last Updated DateTime 8 182.25 cm 35.6 kg/m2 342816. 61 g 108 /min 16 /min 98.3 [degF] 99 % 160/100 mm[Hg] VICKY Bermudez [facility] 8 14:39:41 Date Recorded Body height Oxygen saturation Body temperature Body mass index (BMI) Body weight Heart rate Respiratory rate Systolic And Diastolic Provider Name and Address Organization Details Last Updated DateTime 8 182.25 cm 100 % 98.9 [degF] 34.3 kg/m2 679774. 04 g 104 /min 18 /min 152/108 mm[Hg] Lory Dyer [facility] 8 15:52:02 Social History Question Answer Notes LastModified by Organizat ion Details LastModified Time Tobacco Smoking Status Current Every Day Smoker Delia Dyer aki [facility] 02/28/2017 14:26:37 What Is Your Level Of Caffeine Consumption? Heavy 60oz Soda Per Day [email or web address] Information not available 12/11/2018 How Much Tobacco [...] alcohol consumption? Moderate 1-2 times per wk [id number] Information not available 12/11/2018 What is your occupation? [employer] travels a lot months at a time Information not available 02/21/2019 What is your exercise level? Occasional Information not available 02/28/2017 Mental Status None recorded. Family History Relationship Description Onset Age of this Age Resolved Age Notes LastModified by Organization Details LastModified Time Mother Hypertensive disorder Not available 2016 14:26:15 Mother Malignant neoplasm of colon Not available 2016 14:26:26 Paternal [...] Diagnosis SNOMED-CT Code Diagnosis ICD10 Code Diagnosis IMO Codes Diagnosis Note [id number] MD Ivana Lewishalto (Adult Med) [address] [place] [address] 02/28/2017 14:05:58 03/03/2017 15:39:00 Benign hypertension 94399668 I10 start pt on [place] Mixed anxi ety and depressive disorder 036666921 F41.8 pt declined meds , doing fine without meds for now Family his tory of cancer of colon 370217100 Z80.0 mom diagnosed with colon ca at her 40 's [id number] MD Rodrigo Lewis (Adult Med) [address] [place] [address] 03/31/2017 08:32:02 04/01/2017 14:01:04 Benign hypertension 47718170 I10 Change [place] to [place]hc t Active or passive immunization 046070658 Z23 Mixed anxi ety and depressive disorder 228980277 F41.8 pt agreed to try med - failed on prozac/zol oft/ trazodone in the pastPaxil helped some per pt -wants to try different medDecline d counsellin gRefer to psychiatri st as well due to multiple med failure [id number] [facility] [address] [place] [address] 06/02/2017 09:36:30 06/02/2017 17:53:45 Benign hypertension 57338264 I10 Increase [place]hc t 100/12.5 dailypt to f/u with new pcp-pt agreed to find new one Mixed anxi ety and depressive disorder 853067539 F41.8 pt agreed to try med - failed on prozac/zol oft/ trazodone in the pastPaxil helped some per pt, but does not want to take it -declined counsellin gRefered to psychiatri st as well due to multiple med failure-pt made apt for 05/31 , did not go for the apt - pt said that he is not satisfied with [facility] , has been trying for yearsAdvis ed pt to find any other provider if he is not satisfied with [facility]. [id number] MD Rodrigo Bautista (Adult Med) [address] [place] [address] 04/24/2018 13:52:37 04/24/2018 17:27:59 Community acquired pneumonia 595949605 J18.9 reviewed ER report, CXR. Recommend repeat CXR for resolution 4-6 weeks after ER visit. Advised him to quit smoking Essential hypertension 68815852 I10 Has not been well controlled . [...] e. Gastroesop hageal reflux disease without esophagitis 082383088 K21.9 discussed importance of controllin g GERD especially w/ his smoking hx he is higher risk for cancer Tobacco user 508732801 Z 72.0 patient not interested in quitting at this time, he is not interested in starting medication s to help reduce amount he smokes. Hyperlipidemia 17197964 E78.01 we will get labs from prior PCP. Prickly heat 51855846 L7 4.0 cont to use steroid cream for itching should resolve on own Body mass index 30+ - obesity 944761482 Z68.33 discussed heart healthy diet, also recommend low acid diet. [id number] MD Rodrigo Bautista (Adult Med) [address] [place] [address] 05/29/2018 14:28:07 05/31/2018 10:55:09 Essential hypertension 09009932 I10 Has not been well controlled , [...] discussed. Gastroesop hageal reflux disease without esophagitis 944967570 K21.9 discussed importance of controllin g GERD especially w/ his smoking hx he is higher risk for cancer. Start PPI since he did not improve on ranitidine . Cough 80911187 R05 acute sxs improved w/ steroids. Pt instructed to start PPI and see if better sxs management . Avoid foods that exacerbate sxs especially caffeine. Generalize d anxiety disorder 17960806 F41.1 patient has had xanax in past, discussed that med is not appropriat e for daily sxs, he is agreeable to trying SSRI daily, understand s it can take 3-4 weeks for medication to take effect. Call if any problems w/ medication . Persistent insomnia 1919 64662 G47.09 Did not do well on trazodone, recommend starting Ambien short term while anxiety medication is started. Impacted c erumen in right ear 9826951932 247973 H61.21 Continued problem. He deferred ear lavage in office and will continue to use debrox at home. Body mass index 30+ - obesity 540688529 Z68.35 discussed heart healthy diet, also recommend low acid diet. Influenza vaccination declined 644756646 Z28.21 [id number] Zain Cruz MD [facility] (Adult Med) [address] [place] [address] 07/10/2018 15:30:46 07/28/2018 15:10:15 Mixed anxiety and depressive disorder 451568695 F41.8 reviewed ER visits, imaging and labs [...] be short term tx only. Essential hypertension 14183298 I10 still not optimally controlled after cardio visit. Gastroesop hageal reflux disease without esophagitis 780685320 K21.9 discussed importance of controllin g GERD especially w/ his smoking hx he is higher risk for cancer. Start PPI like OTC prilosec since he did not improve on ranitidine . [id number] MD Rodrigo Bautista (Adult Med) [address] [place] [address] 09/06/2018 09:23:18 09/06/2018 16:21:39 Gastroesophageal reflux disease without esophagitis 211293577 K21.9 Fair control, advised him on diet, reducing spicy, fried/fatt y foods and limiting caffeine. Advised to quit smoking Mixed anxi ety and depressive disorder 097868591 F41.8 He has had worsening depression on multiple SSRIs, he also didn't feel buspar helped anxiety. He has been able to handle crowds and interactio n w/ strangers better on clonazepam , but doesn't feel lower dose is lasting very long and 10 days worth of meds not enough. He is agreeable to trying higher dose just once a day Essential hypertension 00467996 I10 still not optimally controlled ; he agrees to using hctz when he is not working in heat and at risk for dehydratio n. cont losartan and amlodipine . Encouraged him to start exercising for weight loss and following heart healthy diet. Tobacco user 720863728 Z 72.0 patient not interested in quitting at this time, he is not interested in starting medication s to help reduce amount he smokes. But he is willing to stop smoking inside the house w/c may limit amount he smokes during day. Low back pain 111691010 M54.5 fair control, better when he isn't working. Obstructiv e sleep apnea syndrome 72351663 G47.33 did both home study and then a lab study w/ CPAP; he will be set up for home CPAP through cardiology office. Body mass index 30+ - obesity 836704873 Z68.35 discussed heart healthy diet, also recommend low acid diet. start exercise. [id number] MD Rodrigo Bautista (Adult Med) [address] [place] [address] 12/11/2018 15:31:07 12/12/2018 09:40:34 Benign hypertension 45668407 I10 start taking HcTZ daily at least until summer heat starts. He deferred lowering amlodipine for LE edema and increasing HCTZ to 25mg at this time. Work on weight loss. Gastroesop hageal reflux disease without esophagitis 715663901 K21.9 controlled on PPI. Tobacco user 014354743 Z 72.0 He tried nicotine patches in past, gave him wild dreams. Doesn't want to try bupropion, worried after possible SI/HI. Will try chantix. Advised him it could also cause depression , SI/HI. Body mass index 30+ - obesity 114235839 Z68.35 discussed heart healthy diet, also recommend low acid diet. start exercise. Will check labs. But advised him to keep food diary and actually calculate how much he is taking in on weekly basis. Edema of l ower extremity 622495944 R60.0 start taking hctz daily until summer heat starts. Obstructiv e sleep apnea syndrome 59382385 G47.33 did both home study and then a lab study w/ CPAP; He feels he sleeps worse when wearing CPAP. hasn't been able to keep it on through the night since he started. Recommend he f/u with sleep medical laboratory scientist . Try to wear it for at least 4hrs. Fatigue 04102446 R53.83 worried about low T; has had normal thyroid in past. Recommend he get labs after he has had a good night's sleep and first thing in AM. [id number] Zain Cruz MD [facility] (Adult Med) [address] [place] [address] 02/21/2019 12:05:24 02/22/2019 10:42:01 Gastroesophageal reflux disease without esophagitis 602416625 K21.9 controlled on PPI but insurance denied his omeprazole refill since he has filled it 6 times in 365 days. he is ok w/ trying ranitidine 300 mg PO Qday. Very symptomati c without medication . he has been reducing high acidic foods. Mixed anxi ety and depressive disorder 913792538 F41.8 doign well w/ PRN clonazepam ; trouble w/ insurance coverage while he was out of town, [place] not covering except in [place] Benign hypertension 1072 5009 I10 This is lowest he's had BP for over 10yrs. Cont current medication s, diet and weight loss Tobacco user 573559573 Z 72.0 He tried nicotine patches in past, gave him wild dreams. Doesn't want to try bupropion, worried after possible SI/HI. Chantix not covered by insurance. Cont to decrease on own, work on getting down to 1/2 ppd at 4 mo f/u Body mass index 30+ - obesity 566084578 Z68.35 He has been working on weight loss, weight at home was 245; today in clinic higher than that but 7 lb weight loss since last visit, more if home scale is accurate. He will continue w/ diet & exercise Health Concerns Section Related Observation LastModified by Organization Anton ls LastModified Time None Recorded Concern Status LastModified by Organization Details LastModified Time None Recorded Advance Directives Directive None Recorded Payers Insurance Date Sequence Insurance Name Policy Number Policy Kimble Covered Member ID Kimble Member ID Guarantor Name 02/20/2019 1 [facility] - DOS PRIOR TO 2021 (MEDICAID REPLACEMENT - HMO) Roberth Marcelo [id number] Roberth Marcelo Notes Date Note Type Note Provider Name and Address Organization Details Recorded Time 8 text/html Care Management - HypertensionReported by PatientHPIFor self care, patient reportsunder emotional stress (increased aniety over last few months). For associated symptoms, patient reportsdizziness (when he feels dehydrated)andheadaches (related to hydration status)but reportsno lightheadedness,no chest pain,no shortness of breath,no palpitations,no edema,no calf muscle cramps,no blurred vision,no confusion, andno fatigue. For severity, patient reportsno change since last visit. Hypertension F/UReported by PatientHPIFor lifestyle, patient reportsnot exercising regularlybut reportslimiting/avoiding salt. For associated symptoms, patient reportsno lightheadedness,no chest pain,no shortness of breath,no palpitations,no edema, andno calf pain with exertion. For medications, patient reportstaking medications as directed,no side effects from medication, andchecks blood pressure at home, range: (160/100s).decreased hearing in right ear, had used debrox and flushed w/ bulb at home and yesterday felt like water trapped and hearing decreased.ROS as noted in the HPI Cough: went to [facility] [place], CXR clear, given steroids and cough cleared [...] sleep. Deloris Sheppard PA-C Attn: Accounting,[address] [place], [address], [facility] 05/30/2018 08:56:20 8 text/html ROS as noted in the HPI here for ER follow up re: persistent [...] has supplements at home. Anxiety: spoke w/ strategy lead, they didn't make any changes to his [...] PA-C Attn: Accounting,[address], [place], [address], [facility] 09/26/2018 09:43:06 9 text/html Care Management - HypertensionReported by PatientHPIFor self care, patient reportsunder emotional stress (work stoppage due to weather. hard to pay bills, but says he had a good damian)but reportsusing an arb. For severity, patient reportsno change since last visit. For associated symptoms, patient reportsno blurred vision,no confusion,no headaches, andno fatigue. Hypertension F/UReported by PatientHPIFor lifestyle, patient reportsnot exercising regularly (but wants to start)but reportslimiting/avoiding salt. For associated symptoms, patient reportsno dizziness,no lightheadedness,no chest pain,no shortness of breath,no palpitations,no edema, andno calf pain with exertion. For medications, patient reportstaking medications as directedandno side effects from medication.ROS as noted in the HPI Taking HCTZ from previous time and takes [...] PA-C Attn: Accounting,[address], [place], [address], [facility] 09/06/2018 11:28:17 9 text/html ROS as noted in the HPI weight gain over last 6mo or so, [...] he is working. Deloris Sheppard PA-C Attn: Accounting, [facility], [place], [address], [facility] 12/12/2018 09:12:24 9 text/html Hypertension F/UReported by PatientHPIFor associated symptoms, patient reportsedema (to ankles w/ amlodipine use)but reportsno dizziness,no lightheadedness,no chest pain,no shortness of breath,no palpitations, andno calf pain with exertion. For lifestyle, patient reportsregular exerciseandlimiting/avoid ing salt. For medications, patient reportstaking medications as directedandno side effects from medication.ROS as noted in the HPI didn't get omeprazole refilled, ins plan no longer covering med; severe heartburn yesterday. Cut his leg while in [place] for work, using well water; went to ER for cellulitis of leg & severe swelling, given IV abx and completed 2 different abx and resolved sxs. Chantix not covered by insurance, trying to smoke less, currently 1ppd or less. working on diet & weight loss. down 20lbs per his home scale Deloris Sheppard PA-C Attn: Accounting, [facility], [place], [address], [facility] 02/21/2019 13:26:59
== END 2025-07-22 16:16 | disposition home or self-care (01) ==
PROVIDERS: PCP Family Medicine
DX: S69.91XA Unspecified injury of right wrist, hand and finger(s), initial encounter (principal); I10 Essential (primary) hypertension; Z87.891 Personal history of nicotine dependence; W01.0XXA Fall on same level from slipping, tripping and stumbling without subsequent striking against object, initial encounter
CPT/HCPCS: 73090; 73110; 99213; G0463